=== PATIENT | male | born 1960 | race Caucasian/White ===

== ENCOUNTER → 2018-02-18 | Outpatient (CLI) | payer MEDICARE, OTHER ==
[2018-02-18 11:19] VITALS: BP 152/76; PULSE 108; RESP 16; TEMP 98.1; BMI 56.3
--- NOTE | 2018-02-18 11:49 | P.HPBAR ---
Bariatric H&P - History & Physicial H&P Date: 02/18/18 History & Physicial: Visit/CC: initial visit Patient initial contact: Initial weight: 175.625 kg Initial weight in pounds: 387.19 Height: 5 ft 9.5 in Initial BMI: 56.3 Last weight: Current weight: 175.625 kg Current weight in pounds: 387.19 Current BMI: 56.3 [place] body weight (based on NIH guidelines): 73.936 kg Excess body weight loss: 0.0% The patient is a 57 year-old M who presents for Bariatric Assessment. HPI: He reports trouble with depression. He is looking into bariatric surgery. His older sister and brother who had the gastric bypass. He is looking to get the most weight loss ever. He has been overweight for the past 12 years. He was 210 to 220 pounds in the past. 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 He reports having a large appetite. He has CHF and had pneumonia. He had a lung doctor and has a BiPAP. He has severe GERD and is life long. He had 2 perforated stomach ulcers. Last GERD and colonoscopy. Last scope in July 2018. Has low back pain with herniations, hip pain right very sore , some knees, ankles are ok. Feets are ok. No stomach or esophageal cancer. Highest weight is at present. He has afib. He sees a stratigrapher. ABDOMEN: Umbilical hernia 3 cm reducible MS: 1+ edema PLAN: 1. Need EGD for lesion 2. Need EKG 3. Needs labs 4. Needs nutrition Past Medical History Past Medical History: Atrial Fibrillation, COPD, Diabetes Mellitus, GERD/Reflux , Hyperlipidemia, Hypertension, Osteoarthritis (OA), Sleep Apnea/CPAP/BIPAP History of Any Multi-Drug Resistant Organisms: None Reported Past Surgical History: Pacemaker, Tonsillectomy Past Anesthesia/Blood Transfusion Reactions: No Reported Reaction Type of Cardiac Device: Permanent Pacemaker Device Placement Date:: unknown Past Psychological History: No Psychological Hx Reported Smoking Status: Former smoker Past Alcohol Use History: None Reported Additional Past Alcohol Use History / Comment(s): quit 20 year ago Past Drug Use History: None Reported Surgical - Exam Vital Signs Temp Pulse Resp BP 98.1 F 108 H 16 152/76 02/18/18 11:16 02/18/18 11:16 02/18/18 11:16 02/18/18 11:16 Bariatric Checklist Checklist: Plan: Checklist: EGD: 1. Hiatal hernia: 2. H. Pylori: HgbA1c: Vitamin D: Smoking: Former smoker Primary care physician referral: Lilia Sanchez Psychiatry clearance: Cardiology clearance: Sleep study: Diet journal: VTE risk score: VTE risk level: Rehab needs at discharge:
[2018-02-18 13:18] LABS: Anisocytosis Slight; HCT 37.6 % (39.0-53.0); HGB 11.6 gm/dL (13.0-17.5); Hypochromasia Marked; MCH 26.1 pg (25.0-35.0); MCHC 30.8 g/dL (31.0-37.0); MCV 84.5 fL (80.0-100.0); Mean Platelet Volume 7.5; Platelet Count 185 k/uL (150-450); RBC 4.45 m/uL (4.30-5.90); RDW 16.5 % (11.5-15.5); WBC 10.2 k/uL (3.8-10.6)
[2018-02-18 18:32] LABS: Iron Saturation 9.26 (15.00-50.00)
[2018-02-18 18:36] LABS: Albumin 4.7 g/dL (3.80-4.90); Albumin/Globulin Ratio 2.47 (1.20-2.10); Anion Gap 10.1 mmol/L (4.00-12.00); Calcium 9.8 mg/dL (8.7-10.3); Carbon Dioxide 26.9 mmol/L (21.6-31.8); Globulin 1.9 g/dL (1.6-3.3); LDL Cholesterol,Calculated 64.4 mg/dL (0.0-131.0); Potassium 4.6 mmol/L (3.5-5.5); Total Bilirubin 0.8 mg/dL (0.3-1.2); Total Protein 6.6 g/dL (6.2-8.2); VLDL Calculation 61.6 mg/dL (5.00-40.00)
[2018-02-18 18:41] LABS: Folate, Serum 9.5 ng/mL
[2018-02-18 18:50] LABS: Vitamin D 25 Hydroxy 9.2 ng/mL (30.0-100.0)
[2018-02-18 20:59] LABS: Hemoglobin A1C 8.6 % (4.0-6.0)
== END ==
LOC: BARWHC3 10:02
PROVIDERS: ATTEND Surgery Plastic and Reconstructive Surgery
DX: Z48.815 Encounter for surgical aftercare following surgery on the digestive system (principal); E66.01 Morbid (severe) obesity due to excess calories; E88.81 Metabolic syndrome and other insulin resistance; E44.0 Moderate protein-calorie malnutrition; E55.9 Vitamin D deficiency, unspecified; I11.9 Hypertensive heart disease without heart failure; G47.30 Sleep apnea, unspecified; Z68.43 Body mass index [BMI] 50.0-59.9, adult; Z98.84 Bariatric surgery status; Z87.891 Personal history of nicotine dependence
CPT/HCPCS: 84425; 80061; 80053; 82607; 82728; 82746; 83540; 83550; 84443; 85027; 82306; 83036; 36415; G0463; 99201

== ENCOUNTER 2018-03-29 10:46 | Day surgery (SDC) | payer MEDICARE ==
[2018-03-25 09:44] VITALS: BMI 56.5
--- NOTE | 2018-03-29 08:53 | P.GSHP ---
History of Present Illness H&P Date: 03/29/18 CHIEF COMPLAINT: GERD HISTORY OF PRESENT ILLNESS: The patient is a 57-year-old male who presents reports gastroesophageal reflux disease. Upper endoscopy was offered for further evaluation and management. PAST MEDICAL HISTORY: Please see list. PAST SURGICAL HISTORY: Please see list. MEDICATIONS: Please see list. ALLERGIES: Please see list. SOCIAL HISTORY: No illicit drug use FAMILY HISTORY: No reports of Crohn disease or ulcerative colitis. REVIEW OF ORGAN SYSTEMS: CONSTITUTIONAL: No reports of fevers or chills. GI: Denies any blood in stools or constipation. PHYSICAL EXAM: VITAL SIGNS: Stable GENERAL: Well-developed and pleasant in no acute distress. HEENT: No scleral icterus. Extraocular movements grossly intact. Moist buccal mucosa. NECK: Supple without lymphadenopathy. CHEST: Unlabored respirations. Equal bilateral excursions. CARDIOVASCULAR: Regular rate and rhythm. Distal 2+ pulses. ABDOMEN: Soft, nondistended. MUSCULOSKELETAL: No clubbing, cyanosis, or edema. ASSESSMENT: 1. Gastroesophageal reflux disease PLAN: 1. Recommend proceeding with an upper endoscopy Past Medical History Past Medical History: Atrial Fibrillation, Heart Failure, Diabetes Mellitus, Hyperlipidemia, Hypertension, Sleep Apnea/CPAP/BIPAP Additional Past Medical History / Comment(s): HX OF ANEMIA, COLON POLYPS, HX HEMMOROIDS, CHronic low back pain and ruptured discs (L4-L5), chronic KHUSHBU hip pain History of Any Multi-Drug Resistant Organisms: None Reported Past Surgical History: Pacemaker Past Anesthesia/Blood Transfusion Reactions: No Reported Reaction Additional Past Anesthesia/Blood Transfusion Reaction / Comment(s): NO blood transfusion to date Type of Cardiac Device: Permanent Pacemaker Device Placement Date:: Hum[place]ade 2014 Smoking Status: Former smoker - Past Family History Father Family Medical History: Cancer, Dementia, Myocardial Infarction ([place]), Neurologic Disorder Additional Family Medical History / Comment(s): SKIN CA, quadruple bypass x2 , at age 89 from Parkinsons/Alzheimers Mother Family Medical History: Cancer Additional Family Medical History / Comment(s): Breast cancer and mastectomy of Left breast at age 63, Medications and Allergies Home Medications Medication Instructions Recorded Confirmed Type Albuterol Inhaler [Ventolin Hfa 1 puff INHALATION DIRECTED 02/05/18 03/25/18 History Inhaler] Aspirin 81 mg PO DAILY 02/05/18 03/25/18 History Ferrous Gluconate [Iron] 325 mg PO TID 02/05/18 03/25/18 History Lisinopril 30 mg PO QAM 02/05/18 03/25/18 History Omeprazole 20 mg PO DAILY 02/05/18 03/25/18 History Potassium Chloride [K-Tab ER] 10 meq PO DAILY 02/05/18 03/25/18 History Simvastatin [Zocor] 40 mg PO DAILY 02/05/18 03/25/18 History Warfarin [Coumadin] 10 mg PO HS 02/05/18 03/25/18 History metFORMIN HCL [Glucophage] 500 mg PO BID 02/05/18 03/25/18 History Cholecalciferol [Vitamin D3] 5,000 unit PO DAILY 03/25/18 03/25/18 History HYDROcodone/APAP 10-325MG [Una 1 tab PO Q6HR PRN 03/25/18 03/25/18 History 10-325] glyBURIDE [Diabeta] 5 mg PO AC-BID 03/25/18 03/25/18 History Allergies Allergy/AdvReac Type Severity Reaction Status Date / Time atorvastatin [From Lipitor] AdvReac muscle pain Verified 03/25/18 09:36
[~2018-03-29 10:46] MED LIST: LACTATED RINGERS 1,000 ML IV SCH; LIDOCAINE 1% 20 ML VIAL (10MG/ML) FOR IV START INTRADERMA PRN; MIDAZOLAM (PF) 2 MG/2 ML VIAL IV PRN
[2018-03-29 11:06] VITALS: TEMP 97.2
[2018-03-29 11:25] LABS: Glucose,Whole Blood 241 mg/dL (75-99)
[2018-03-29] MEDS ORDERED: PROPOFOL 10 MG/ML 20 ML VIAL IV ONE (13:46)
[2018-03-29] MEDS ORDERED: LIDOCAINE 1% INJ 10MG/ML (20 ML MDV) ONE (13:46)
[2018-03-29] MEDS ORDERED: LACTATED RINGERS 1,000 ML IV ONE (14:03)
--- NOTE | 2018-03-29 14:06 | P.PCN ---
Date of Procedure: 03/29/18 Description of Procedure: PREOPERATIVE DIAGNOSIS: Gastroesophageal reflux disease. Morbid obesity. POSTOPERATIVE DIAGNOSIS: Morbid obesity. Gastritis. Gastroesophageal reflux disease. OPERATION: Esophagogastroduodenoscopy with biopsies along antrum. SURGEON: Carley Tyson MD ANESTHESIA: MAC. INDICATIONS: The patient is a 57-year-old female who presents with a history of reflux disease. Benefits and risks of the procedure were described. Informed consent was obtained. DESCRIPTION: The patient was brought into the endoscopy suite and laid in the left lateral decubitus position. An Olympus gastroscope was passed along the posterior oropharynx down to the distal esophagus where the squamocolumnar junction was encountered at 40 cm from the incisors. The stomach was entered and no bile reflux was found. Additional findings are listed below. Biopsies with cold forceps were obtained of the antrum. The first through third portion of the duodenum was examined and unremarkable. Retroflexion of the scope confirmed Hill grade 3 lower esophageal valve. The squamocolumnar junction demonstrated LA grade A erosive esophagitis. The stomach was desufflated. The patient tolerated the procedure well. FINDINGS: Squamocolumnar junction 40 cm from the incisors. Diaphragmatic hiatus at 40 cm. Hill grade 3 lower esophageal valve. LA grade A erosive esophagitis. No active duodenitis. Chronic gastritis RECOMMENDATIONS: Upper endoscopy as needed. Plan - Discharge Summary Discharge Rx Participant: No New Discharge Prescriptions: No Action Aspirin 81 mg PO DAILY Ferrous Gluconate [Iron] 325 mg PO TID Warfarin [Coumadin] 10 mg PO HS metFORMIN HCL [Glucophage] 500 mg PO BID Lisinopril 30 mg PO QAM Omeprazole 20 mg PO DAILY Potassium Chloride [K-Tab ER] 10 meq PO DAILY Simvastatin [Zocor] 40 mg PO DAILY Albuterol Inhaler [Ventolin Hfa Inhaler] 1 puff INHALATION DIRECTED HYDROcodone/APAP 10-325MG [Garrison 10-325] 1 tab PO Q6HR PRN PRN Reason: Pain glyBURIDE [Diabeta] 5 mg PO AC-BID Cholecalciferol [Vitamin D3] 5,000 unit PO DAILY Discharge Medication List Albuterol Inhaler [Ventolin Hfa Inhaler] 1 puff INHALATION DIRECTED 02/05/18 [History] Aspirin 81 mg PO DAILY 02/05/18 [History] Ferrous Gluconate [Iron] 325 mg PO TID 02/05/18 [History] Lisinopril 30 mg PO QAM 02/05/18 [History] Omeprazole 20 mg PO DAILY 02/05/18 [History] Potassium Chloride [K-Tab ER] 10 meq PO DAILY 02/05/18 [History] Simvastatin [Zocor] 40 mg PO DAILY 02/05/18 [History] Warfarin [Coumadin] 10 mg PO HS 02/05/18 [History] metFORMIN HCL [Glucophage] 500 mg PO BID 02/05/18 [History] Cholecalciferol [Vitamin D3] 5,000 unit PO DAILY 03/25/18 [History] HYDROcodone/APAP 10-325MG [Garrison 10-325] 1 tab PO Q6HR PRN 03/25/18 [History] glyBURIDE [Diabeta] 5 mg PO AC-BID 03/25/18 [History] Patient Instructions/Handouts: *[facility] - (Anesthesia) Endoscopy Discharge Instructions, Upper Endoscopy (DC)
[2018-03-29 14:09] VITALS: RESP 18
[2018-03-29 14:25] VITALS: BP 138/78; PULSE 77
== END 2018-03-29 14:41 | disposition home or self-care (01) ==
LOC: ORWHC2ENDO 10:46
PROVIDERS: ATTEND Surgery Plastic and Reconstructive Surgery
DX: K21.0 Gastro-esophageal reflux disease with esophagitis (principal); K29.50 Unspecified chronic gastritis without bleeding; E11.9 Type 2 diabetes mellitus without complications; I11.0 Hypertensive heart disease with heart failure; I50.9 Heart failure, unspecified; I48.91 Unspecified atrial fibrillation; G47.33 Obstructive sleep apnea (adult) (pediatric); J44.9 Chronic obstructive pulmonary disease, unspecified; Z99.89 Dependence on other enabling machines and devices; Z86.2 Personal history of diseases of the blood and blood-forming organs and certain disorders involving the immune mechanism; Z87.891 Personal history of nicotine dependence; Z95.0 Presence of cardiac pacemaker; E78.5 Hyperlipidemia, unspecified; G89.29 Other chronic pain; M54.5 Low back pain; Z80.3 Family history of malignant neoplasm of breast; E66.9 Obesity, unspecified; Z68.43 Body mass index [BMI] 50.0-59.9, adult; Z79.01 Long term (current) use of anticoagulants; Z79.84 Long term (current) use of oral hypoglycemic drugs; Z79.82 Long term (current) use of aspirin; Z79.899 Other long term (current) drug therapy; Z88.8 Allergy status to other drugs, medicaments and biological substances
CPT/HCPCS: 88305; 43239; J2001; J2704

== ENCOUNTER → 2018-04-28 | Outpatient (CLI) | payer MEDICARE, OTHER ==
--- NOTE | 2018-04-28 17:42 | P.PN ---
Subjective Progress Note Date: 04/28/18 DATE OF SERVICE: 04/28/2018 CHIEF COMPLAINT: Morbid obesity HISTORY OF PRESENT ILLNESS: Nima Bowman is a 57-year-old male who comes with lifelong morbid obesity. He has multiple medical co-morbidities including severe COPD. He has severe sleep apnea unresponsive to CPAP. He has a stress test and h as a blockage and requires additional cardiovascular care. No nausea or vomiting. No fevers or chills. No current chest pain. At height of 5 feet 9.5 inches, ideal body weight is 168 pounds. Highest weight is 389 pounds. Body mass index highest was 56.7. Today BMI is 56.3. His weight is unchanged in 2 months. He is 218 pounds overweight. PAST MEDICAL HISTORY: 1. Morbid obesity due to excess calories 2. Body mass index of 56.4, initial 3. Depressive disorder 4. Congestive heart failure 5. Past pneumonia 6. Obstructive sleep apnea 7. Gastroesophageal reflux disease 8. Stomach ulcers 9. Osteoarthritis bilateral knee 10. Osteoarthritis lower back 11. Osteoarthritis right hip pain 12. Atrial fibrillation 13. Hypertensive heart disease 14. Diabetes type 2, non-insulin dependent 15. Asthma 16. Iron deficiency anemia 17. Hyperlipidemia 18. Chronic obstructive pulmonary disease 19. Depressive disorder PAST SURGICAL HISTORY: 1. Pacemaker 2. EGD 3. Colonoscopy 4. Tonsillectomy HOME MEDICATIONS: ALLERGIES: Home Medications Medication Instructions Recorded Confirmed Type Albuterol Inhaler [Ventolin Hfa 1 puff INHALATION DIRECTED 02/05/18 02/22/18 History Inhaler] Aspirin 81 mg PO DAILY 02/05/18 02/22/18 History Cetirizine HCl [Zyrtec] 10 mg PO DAILY 02/05/18 02/22/18 History Ferrous Gluconate [Iron] 325 mg PO TID 02/05/18 02/22/18 History Lisinopril 30 mg PO DAILY 02/05/18 02/22/18 History Montelukast [Singulair] 10 mg PO DAILY 02/05/18 02/22/18 History Omeprazole 20 mg PO DAILY 02/05/18 02/22/18 History Potassium Chloride [K-Tab ER] 10 meq PO DAILY 02/05/18 02/22/18 History Simvastatin [Zocor] 40 mg PO DAILY 02/05/18 02/22/18 History Warfarin [Coumadin] 10 mg PO DAILY 02/05/18 02/22/18 History glipiZIDE [Glucotrol] 5 mg PO BID 02/05/18 02/22/18 History metFORMIN HCL [Glucophage] 500 mg PO BID 02/05/18 02/22/18 History Allergies Allergy/AdvReac Type Severity Reaction Status Date / Time atorvastatin [From Lipitor] AdvReac Unknown Verified 02/22/18 18:12 SOCIAL HISTORY: Past tobacco use. FAMILY HISTORY: No family history of ulcerative colitis disease or Crohn's disease. Family history of morbid obesity. No lupus in the family. No reports of stomach or esophageal cancer. REVIEW OF ORGAN SYSTEMS: CONSTITUTIONAL: At height of 5 feet 9.5 inches, ideal body weight is 168 pounds. He comes in 386 pounds. Highest weight is 389 pounds. Body mass index highest was 56.7. Today BMI is 56.5. He is 218 pounds overweight. HEENT: Denies any active troubles with vision or hearing. No troubles with swallowing. ENDOCRINE: Has diabetes. No hypothyroidism. CARDIOVASCULAR: Reports of palpitations or heart attacks or chest pain. RESPIRATORY: Has daytime somnolence. Has asthma. GI: Denies any bright red blood per rectum. No diarrhea. No constipation. MUSCULOSKELETAL: Has lower back pain and joint pain. Has osteoarthritis of the knees. NEURO: No headaches. No seizure disorders. PSYCH: Has depression. No suicidal ideation. RHEUMATOLOGIC: No lupus. No rheumatoid arthritis. HEMATOLOGIC: Denies any abnormal bleeding or bruising. No personal history of DVTs. On blood thinner. SKIN: No rash. No skin cancer. PHYSICAL EXAM: VITAL SIGNS: Height 5 foot 9.5 inches, weight 386 pounds. BMI 56.4 Vital Signs Temp 98.2 F 04/28/18 18:08 Pulse 103 H 04/28/18 18:08 Resp BP 153/80 04/28/18 18:08 Pulse Ox GENERAL: Well-developed in no acute distress. HEENT: No scleral icterus. Extraocular movements grossly intact. Hears conversational speech. No nasal drainage. NECK: Supple without lymphadenopathy. CHEST: Nonlabored respirations with equal bilateral excursions. PROLONGED RESPIRATORY Phase. CARDIOVASCULAR: Irregular rate and irregular rhythm. Distal 2+ pulses. ABDOMEN: Obese, soft, nontender, nondistended. Umbilical hernia 3 cm reducible MUSCULOSKELETAL: No clubbing, cyanosis. Gross strength 5/5 distal lower extremities. 1+ pre-tibial edema NEURO: No focal or lateralizing signs. Cranial nerves 2 through 12 grossly within normal limits. PSYCH: Appropriate affect. Alert and oriented to person, place and time. SKIN: Good skin turgor. Well perfused. EGD FINDINGS: Squamocolumnar junction 40 cm from the incisors. Diaphragmatic hiatus at 40 cm. Hill grade 3 lower esophageal valve. LA grade A erosive esophagitis. No active duodenitis. Chronic gastritis Final Pathologic Diagnosis GASTRIC ANTRUM, BIOPSY: Mild chronic gastritis. Helicobacter pylori organisms are not identified on routine H+E sections. LABS: Reviewed. Iron is low, Vitamin D is low. Triglycerides are high. ASSESSMENT: 1. Morbid obesity due to excess calories 2. Body mass index of 56.4, initial 3. Depressive disorder 4. Congestive heart failure 5. Past pneumonia 6. Obstructive sleep apnea 7. Gastroesophageal reflux disease 8. Stomach ulcers 9. Osteoarthritis bilateral knee 10. Osteoarthritis lower back 11. Osteoarthritis right hip pain 12. Atrial fibrillation 13. Hypertensive heart disease 14. Diabetes type 2, non-insulin dependent 15. Asthma 16. Iron deficiency anemia 17. Hyperlipidemia 18. Chronic obstructive pulmonary disease 19. Depressive disorder 20. Family history morbid obesity 21. History of pacemaker placement PLAN: 1. He is looking into the sleeve gastrectomy for which he is very high risk secondary to her multiple medical co-morbidities including severe COPD. 2. Iron infusion for symptomatic severe iron deficiency anemia 3. Vitamin D supplement for severe heart disease and severe vitamin deficiency.
[2018-04-28 18:13] VITALS: BP 153/80; PULSE 103; TEMP 98.2; BMI 56.3
== END | disposition home or self-care (01) ==
LOC: BARWHC3 15:01
PROVIDERS: ATTEND Surgery Plastic and Reconstructive Surgery
DX: E66.01 Morbid (severe) obesity due to excess calories (principal); I11.0 Hypertensive heart disease with heart failure; I50.9 Heart failure, unspecified; G47.33 Obstructive sleep apnea (adult) (pediatric); K21.9 Gastro-esophageal reflux disease without esophagitis; M17.0 Bilateral primary osteoarthritis of knee; M19.90 Unspecified osteoarthritis, unspecified site; I48.91 Unspecified atrial fibrillation; E11.9 Type 2 diabetes mellitus without complications; D50.9 Iron deficiency anemia, unspecified; E78.5 Hyperlipidemia, unspecified; J44.9 Chronic obstructive pulmonary disease, unspecified; F32.9 Major depressive disorder, single episode, unspecified; Z84.89 Family history of other specified conditions; Z95.0 Presence of cardiac pacemaker; M16.11 Unilateral primary osteoarthritis, right hip; Z68.43 Body mass index [BMI] 50.0-59.9, adult; K25.9 Gastric ulcer, unspecified as acute or chronic, without hemorrhage or perforation; Z87.891 Personal history of nicotine dependence; Z88.8 Allergy status to other drugs, medicaments and biological substances; Z79.899 Other long term (current) drug therapy; Z79.82 Long term (current) use of aspirin; Z79.01 Long term (current) use of anticoagulants; Z79.84 Long term (current) use of oral hypoglycemic drugs
CPT/HCPCS: 99211

== ENCOUNTER → 2018-07-12 | Outpatient (CLI) | payer MEDICARE, OTHER ==
[2018-07-12 09:55] VITALS: BMI 55.7
== END | disposition home or self-care (01) ==
LOC: BARWHC3 08:39
PROVIDERS: ATTEND Surgery Plastic and Reconstructive Surgery
DX: E66.01 Morbid (severe) obesity due to excess calories (principal); Z68.43 Body mass index [BMI] 50.0-59.9, adult
CPT/HCPCS: 97804

== ENCOUNTER → 2018-10-27 | Outpatient (CLI) | payer MEDICARE, OTHER ==
[2018-10-27 15:24] VITALS: BP 124/81; PULSE 68; TEMP 98.2; BMI 52.4
--- NOTE | 2018-10-27 15:42 | P.PN ---
Subjective Progress Note Date: 10/27/18 DATE OF SERVICE: 10/27/2018 CHIEF COMPLAINT: Morbid obesity HISTORY OF PRESENT ILLNESS: Nima Bowman is a 57-year-old male who comes with lifelong morbid obesity. He has multiple medical co-morbidities including severe COPD, sleep apnea, osteoarthritis, hypertensive heart disease with congestive he art failure. He has been undergoing strict low carb, high protein diet with moderate weight loss over 2 pounds. He is no longer short of breath. He no longer has pursed string breathing. He has more energy. His blood surgar has been adjusted. He is happy with his weight loss. At height of 5 feet 9.5 inches, ideal body weight is 168 pounds. Highest weight is 389 pounds. Body mass index highest was 56.7. Today BMI was 56.3. He comes in 360 pounds from 382 pounds, 6 months ago. He has lost 22 pounds in 6 months. Lifetime weight loss of 29 pounds. He is 192 pounds overweight. PAST MEDICAL HISTORY: 1. Morbid obesity due to excess calories 2. Body mass index of 56.4, initial 3. Depressive disorder 4. Congestive heart failure 5. Past pneumonia 6. Obstructive sleep apnea 7. Gastroesophageal reflux disease 8. Stomach ulcers 9. Osteoarthritis bilateral knee 10. Osteoarthritis lower back 11. Osteoarthritis right hip pain 12. Atrial fibrillation 13. Hypertensive heart disease 14. Diabetes type 2, non-insulin dependent 15. Asthma 16. Iron deficiency anemia 17. Hyperlipidemia 18. Chronic obstructive pulmonary disease 19. Depressive disorder PAST SURGICAL HISTORY: 1. Pacemaker 2. EGD 3. Colonoscopy 4. Tonsillectomy HOME MEDICATIONS: ALLERGIES: Home Medications Medication Instructions Recorded Confirmed Type Albuterol Inhaler [Ventolin Hfa 1 puff INHALATION DIRECTED 02/05/18 02/22/18 History Inhaler] Aspirin 81 mg PO DAILY 02/05/18 02/22/18 History Cetirizine HCl [Zyrtec] 10 mg PO DAILY 02/05/18 02/22/18 History Ferrous Gluconate [Iron] 325 mg PO TID 02/05/18 02/22/18 History Lisinopril 30 mg PO DAILY 02/05/18 02/22/18 History Montelukast [Singulair] 10 mg PO DAILY 02/05/18 02/22/18 History Omeprazole 20 mg PO DAILY 02/05/18 02/22/18 History Potassium Chloride [K-Tab ER] 10 meq PO DAILY 02/05/18 02/22/18 History Simvastatin [Zocor] 40 mg PO DAILY 02/05/18 02/22/18 History Warfarin [Coumadin] 10 mg PO DAILY 02/05/18 02/22/18 History glipiZIDE [Glucotrol] 5 mg PO BID 02/05/18 02/22/18 History metFORMIN HCL [Glucophage] 500 mg PO BID 02/05/18 02/22/18 History Allergies Allergy/AdvReac Type Severity Reaction Status Date / Time atorvastatin [From Lipitor] AdvReac Unknown Verified 02/22/18 18:12 SOCIAL HISTORY: Past tobacco use. FAMILY HISTORY: No family history of ulcerative colitis disease or Crohn's disease. Family history of morbid obesity. No lupus in the family. No reports of stomach or esophageal cancer. REVIEW OF ORGAN SYSTEMS: CONSTITUTIONAL: At height of 5 feet 9.5 inches, ideal body weight is 168 pounds. He comes in 386 pounds. Highest weight is 389 pounds. Body mass index highest was 56.7. Today BMI is 56.5. He is 218 pounds overweight. HEENT: Denies any active troubles with vision or hearing. No troubles with swallowing. ENDOCRINE: Has diabetes. No hypothyroidism. CARDIOVASCULAR: Reports of palpitations or heart attacks or chest pain. RESPIRATORY: Has daytime somnolence. Has asthma. GI: Denies any bright red blood per rectum. No diarrhea. No constipation. MUSCULOSKELETAL: Has lower back pain and joint pain. Has osteoarthritis of the knees. NEURO: No headaches. No seizure disorders. PSYCH: Has depression. No suicidal ideation. RHEUMATOLOGIC: No lupus. No rheumatoid arthritis. HEMATOLOGIC: Denies any abnormal bleeding or bruising. No personal history of DVTs. On blood thinner. SKIN: No rash. No skin cancer. PHYSICAL EXAM: VITAL SIGNS: Height 5 foot 9.5 inches, weight 360 pounds. BMI 52.4 Vital Signs Temp 98.2 F 10/27/18 15:16 Pulse 68 10/27/18 15:16 Resp BP 124/81 10/27/18 15:16 Pulse Ox GENERAL: Well-developed in no acute distress. HEENT: No scleral icterus. Extraocular movements grossly intact. Hears conversational speech. No nasal drainage. NECK: Supple without lymphadenopathy. CHEST: Nonlabored respirations with equal bilateral excursions. CARDIOVASCULAR: Irregular rate and irregular rhythm. Distal 2+ pulses. ABDOMEN: Obese, soft, nontender, nondistended. Umbilical hernia 3 cm reducible MUSCULOSKELETAL: No clubbing, cyanosis. Gross strength 5/5 distal lower extremities. No edema NEURO: No focal or lateralizing signs. Cranial nerves 2 through 12 grossly within normal limits. PSYCH: Appropriate affect. Alert and oriented to person, place and time. SKIN: Good skin turgor. Well perfused. ASSESSMENT: 1. Morbid obesity due to excess calories 2. Body mass index of 56.4 to 52.4 3. Depressive disorder 4. Congestive heart failure 5. Past pneumonia 6. Obstructive sleep apnea, severe 7. Gastroesophageal reflux disease 8. Stomach ulcers 9. Osteoarthritis bilateral knee 10. Osteoarthritis lower back 11. Osteoarthritis right hip pain 12. Atrial fibrillation 13. Hypertensive heart disease 14. Diabetes type 2, non-insulin dependent 15. Asthma 16. Iron deficiency anemia 17. Hyperlipidemia 18. Chronic obstructive pulmonary disease, moderate 19. Depressive disorder 20. Family history morbid obesity 21. History of pacemaker placement 22. Chronic anticoagulant use PLAN: 1. Bariatric options between a sleeve, band and a Patricia-en-Y gastric bypass were reviewed in detail. The patient elected for a gastric bypass. Robotic assisted approach described. 2. The [place] [facility] Data was also reviewed with benefits and risks as described. 3. An 8 page second-generation bariatric consent form was reviewed in detail including potential of bleeding, infection, leaks, adequate weight loss, nutritional deficiencies which the patient demonstrated understanding of the risks. 4. A 2 week high-protein low caloric 800 kcal diet described to address hepatomegaly. 5. Preoperative labs including complete metabolic panel and CBC with type and screen recommended. 6. DVT prophylaxis per [place] [facility]. 7. Antibiotic prophylaxis. 8. Inpatient hospitalization anticipated for more than 2 nights. 9. All questions and concerns were addressed with the patient. 10. He is moderate risks with any surgical procedure, the highest risk is with gastric bypass. He is looking into the gastric bypass. He does not want the sleeve. 11. He will need BiPAP after his procedure for moderate to severe COPD and sleep apnea 12. He will be off coumadin for 5 days with bridging described post-operative with Lovenox Objective - Vital Signs Vital signs: Vital Signs Temp 98.2 F 10/27/18 15:16 Pulse 68 10/27/18 15:16 Resp BP 124/81 10/27/18 15:16 Pulse Ox Intake & Output 10/26/18 10/27/18 10/27/18 18:59 06:59 18:59 Weight 163.429 kg - Labs CBC & Chem 7: 10/27/18 16:35 10/27/18 16:35
[2018-10-27 17:41] LABS: Anisocytosis Slight; Basophils # (A) 0.1 k/uL (0-0.2); Basophils % (A) 1 %; Eosinophils # (A) 0.3 k/uL (0-0.7); Eosinophils % (A) 3 %; HCT 42.2 % (39.0-53.0); HGB 13.6 gm/dL (13.0-17.5); Lymphocytes # (A) 1.7 k/uL (1.0-4.8); Lymphocytes % (A) 14 %; MCH 27.8 pg (25.0-35.0); MCHC 32.1 g/dL (31.0-37.0); MCV 86.4 fL (80.0-100.0); Mean Platelet Volume 7.7; Monocytes # (A) 0.4 k/uL (0-1.0); Monocytes % (A) 4 %; Neutrophils # (A) 9.8 k/uL (1.3-7.7); Neutrophils % (A) 79 %; Platelet Count 171 k/uL (150-450); RBC 4.89 m/uL (4.30-5.90); RDW 16.5 % (11.5-15.5); WBC 12.5 k/uL (3.8-10.6)
[2018-10-27 22:51] LABS: African American GFR (CKD) 77.9 (60.0-200.0); Albumin 4.9 g/dL (3.80-4.90); Albumin/Globulin Ratio 2.23 (1.60-3.17); Anion Gap 14.8 mmol/L (4.00-12.00); BUN/Creat Ratio 25.83 Ratio (12.00-20.00); Calcium 10.4 mg/dL (8.7-10.3); Carbon Dioxide 19.2 mmol/L (21.6-31.8); Globulin 2.2 g/dL (1.6-3.3); Potassium 4.5 mmol/L (3.5-5.5); Total Protein 7.1 g/dL (6.2-8.2)
[2018-10-27 23:31] LABS: Hemoglobin A1C 8.1 % (4.0-6.0)
== END | disposition home or self-care (01) ==
LOC: BARWHC3 13:59
PROVIDERS: ATTEND Surgery Plastic and Reconstructive Surgery
DX: E66.01 Morbid (severe) obesity due to excess calories (principal); F32.9 Major depressive disorder, single episode, unspecified; I11.0 Hypertensive heart disease with heart failure; G47.33 Obstructive sleep apnea (adult) (pediatric); K21.9 Gastro-esophageal reflux disease without esophagitis; K25.9 Gastric ulcer, unspecified as acute or chronic, without hemorrhage or perforation; M17.0 Bilateral primary osteoarthritis of knee; M47.816 Spondylosis without myelopathy or radiculopathy, lumbar region; M16.11 Unilateral primary osteoarthritis, right hip; I48.91 Unspecified atrial fibrillation; I50.9 Heart failure, unspecified; E11.9 Type 2 diabetes mellitus without complications; J44.9 Chronic obstructive pulmonary disease, unspecified; D50.9 Iron deficiency anemia, unspecified; E78.5 Hyperlipidemia, unspecified; Z68.43 Body mass index [BMI] 50.0-59.9, adult; Z87.01 Personal history of pneumonia (recurrent); Z87.891 Personal history of nicotine dependence; Z95.0 Presence of cardiac pacemaker; Z90.09 Acquired absence of other part of head and neck; Z79.01 Long term (current) use of anticoagulants; Z79.82 Long term (current) use of aspirin; Z79.84 Long term (current) use of oral hypoglycemic drugs; Z79.899 Other long term (current) drug therapy; Z88.8 Allergy status to other drugs, medicaments and biological substances
CPT/HCPCS: 80053; 85025; 83036; G0463; 99211

== ENCOUNTER 2018-11-08 11:15 | Inpatient (IN) | payer MEDICARE, OTHER ==
--- NOTE | 2018-11-07 20:52 | P.GSHP ---
History of Present Illness H&P Date: 11/08/18 DATE OF SERVICE: 11/08/2018 CHIEF COMPLAINT: Morbid obesity HISTORY OF PRESENT ILLNESS: Nima Bowman is a 57-year-old male who comes with lifelong morbid obesity. He has multiple medical co-morbidities including severe COPD, sleep apnea, osteoarthritis, hypertensive heart disease with congestive heart failure. He has been undergoing strict low carb, high protein diet with moderate weight loss over 2 pounds. He is no longer short of breath. He no longer has pursed string breathing. He has more energy. His blood surgar has been adjusted. He is happy with his weight loss. At height of 5 feet 9.5 inches, ideal body weight is 168 pounds. Highest weight is 389 pounds. Body mass index highest was 56.7. Today BMI was 52.4. He comes in 360 pounds unchanged from 2 weeks ago. Lifetime weight loss of 30 pounds. He is 192 pounds overweight. PAST MEDICAL HISTORY: 1. Morbid obesity due to excess calories 2. Body mass index of 56.4, initial 3. Depressive disorder 4. Congestive heart failure 5. Past pneumonia 6. Obstructive sleep apnea 7. Gastroesophageal reflux disease 8. Stomach ulcers 9. Osteoarthritis bilateral knee 10. Osteoarthritis lower back 11. Osteoarthritis right hip pain 12. Atrial fibrillation 13. Hypertensive heart disease 14. Diabetes type 2, non-insulin dependent 15. Asthma 16. Iron deficiency anemia 17. Hyperlipidemia 18. Chronic obstructive pulmonary disease 19. Depressive disorder PAST SURGICAL HISTORY: 1. Pacemaker 2. EGD 3. Colonoscopy 4. Tonsillectomy HOME MEDICATIONS: ALLERGIES: Home Medications Medication Instructions Recorded Confirmed Type Albuterol Inhaler [Ventolin Hfa 1 puff INHALATION DIRECTED 02/05/18 02/22/18 History Inhaler] Aspirin 81 mg PO DAILY 02/05/18 02/22/18 History Cetirizine HCl [Zyrtec] 10 mg PO DAILY 02/05/18 02/22/18 History Ferrous Gluconate [Iron] 325 mg PO TID 02/05/18 02/22/18 History Lisinopril 30 mg PO DAILY 02/05/18 02/22/18 History Montelukast [Singulair] 10 mg PO DAILY 02/05/18 02/22/18 History Omeprazole 20 mg PO DAILY 02/05/18 02/22/18 History Potassium Chloride [K-Tab ER] 10 meq PO DAILY 02/05/18 02/22/18 History Simvastatin [Zocor] 40 mg PO DAILY 02/05/18 02/22/18 History Warfarin [Coumadin] 10 mg PO DAILY 02/05/18 02/22/18 History glipiZIDE [Glucotrol] 5 mg PO BID 02/05/18 02/22/18 History metFORMIN HCL [Glucophage] 500 mg PO BID 02/05/18 02/22/18 History Allergies Allergy/AdvReac Type Severity Reaction Status Date / Time atorvastatin [From Lipitor] AdvReac Unknown Verified 02/22/18 18:12 SOCIAL HISTORY: Past tobacco use. FAMILY HISTORY: No family history of ulcerative colitis disease or Crohn's disease. Family history of morbid obesity. No lupus in the family. No reports of stomach or esophageal cancer. REVIEW OF ORGAN SYSTEMS: CONSTITUTIONAL: At height of 5 feet 9.5 inches, ideal body weight is 168 pounds. Highest weight is 389 pounds. Body mass index highest was 56.7. HEENT: Denies any active troubles with vision or hearing. No troubles with swallowing. ENDOCRINE: Has diabetes. No hypothyroidism. CARDIOVASCULAR: Reports of palpitations or heart attacks or chest pain. RESPIRATORY: Has daytime somnolence. Has asthma. GI: Denies any bright red blood per rectum. No diarrhea. No constipation. MUSCULOSKELETAL: Has lower back pain and joint pain. Has osteoarthritis of the knees. NEURO: No headaches. No seizure disorders. PSYCH: Has depression. No suicidal ideation. RHEUMATOLOGIC: No lupus. No rheumatoid arthritis. HEMATOLOGIC: Denies any abnormal bleeding or bruising. No personal history of DVTs. On blood thinner. SKIN: No rash. No skin cancer. PHYSICAL EXAM: VITAL SIGNS: Height 5 foot 9.5 inches, weight 360 pounds. BMI 52.4 GENERAL: Well-developed in no acute distress. HEENT: No scleral icterus. Extraocular movements grossly intact. Hears conversational speech. No nasal drainage. NECK: Supple without lymphadenopathy. CHEST: Nonlabored respirations with equal bilateral excursions. CARDIOVASCULAR: Irregular rate and irregular rhythm. Distal 2+ pulses. ABDOMEN: Obese, soft, nontender, nondistended. Umbilical hernia 3 cm reducible MUSCULOSKELETAL: No clubbing, cyanosis. Gross strength 5/5 distal lower extremities. No edema NEURO: No focal or lateralizing signs. Cranial nerves 2 through 12 grossly within normal limits. PSYCH: Appropriate affect. Alert and oriented to person, place and time. SKIN: Good skin turgor. Well perfused. ASSESSMENT: 1. Morbid obesity due to excess calories 2. Body mass index of 56.4 to 52.4 3. Depressive disorder 4. Congestive heart failure 5. Past pneumonia 6. Obstructive sleep apnea, severe 7. Gastroesophageal reflux disease 8. Stomach ulcers 9. Osteoarthritis bilateral knee 10. Osteoarthritis lower back 11. Osteoarthritis right hip pain 12. Atrial fibrillation 13. Hypertensive heart disease 14. Diabetes type 2, non-insulin dependent 15. Asthma 16. Iron deficiency anemia 17. Hyperlipidemia 18. Chronic obstructive pulmonary disease, moderate 19. Depressive disorder 20. Family history morbid obesity 21. History of pacemaker placement 22. Chronic anticoagulant use PLAN: 1. Bariatric options between a sleeve, band and a Patricia-en-Y gastric bypass were reviewed in detail. The patient elected for a gastric bypass. Robotic assisted approach described. 2. The [place] [facility] Data was also reviewed with benefits and risks as described. 3. An 8 page second-generation bariatric consent form was reviewed in detail including potential of bleeding, infection, leaks, adequate weight loss, nutritional deficiencies which the patient demonstrated understanding of the risks. 4. A 2 week high-protein low caloric 800 kcal diet described to address hepatomegaly. 5. Preoperative labs including complete metabolic panel and CBC with type and screen recommended. 6. DVT prophylaxis per [place] [facility]. 7. Antibiotic prophylaxis. 8. Inpatient hospitalization anticipated for more than 2 nights. 9. All questions and concerns were addressed with the patient. 10. He is moderate risks with any surgical procedure, the highest risk is with gastric bypass. He is looking into the gastric bypass. He does not want the sleeve. 11. He will need BiPAP after his procedure for moderate to severe COPD and sleep apnea 12. He will be off coumadin for 5 days with bridging described post-operative with Lovenox Past Medical History Past Medical History: Atrial Fibrillation, Heart Failure, COPD, Diabetes Mellitus, GERD/Reflux, Hyperlipidemia, Hypertension, Osteoarthritis (OA), Sleep Apnea/CPAP/BIPAP Additional Past Medical History / Comment(s): IRON DEFICIENCY ANEMIA, COLON POLYPS, HEMMOROIDS, KIDNEY STONES., RUPTURED DISCS WITH BACK AND HIP PAIN., PACEMAKER, SLEEP APNEA WITH BI-PAP MACHINE AND OXYGEN AT 4 LITERS AT NIGHT., HX OF STOMACH ULCER., STATES CURRENTLY ON PROTEIN SHAKE DIET PER DRS INSTRUCTIONS. History of Any Multi-Drug Resistant Organisms: None Reported Past Surgical History: Pacemaker Additional Past Surgical History / Comment(s): LITHOTRIPSY Past Anesthesia/Blood Transfusion Reactions: No Reported Reaction Additional Past Anesthesia/Blood Transfusion Reaction / Comment(s): NO blood transfusion to date Type of Cardiac Device: Permanent Pacemaker Device Placement Date:: Squrl 2014 Past Psychological History: Depression Additional Psychological History / Comment(s): . Smoking Status: Former smoker Past Alcohol Use History: None Reported Additional Past Alcohol Use History / Comment(s): Quit in cigarettes in 1994, smoked 1-2ppd from teens. CURRENTLY VAPES. Past Drug Use History: Marijuana Additional Drug Use History / Comment(s): VAPES MARIJUANA - Past Family History Father Family Medical History: Cancer, Dementia, Myocardial Infarction ([place]), Neurologic Disorder Additional Family Medical History / Comment(s): SKIN CA, quadruple bypass x2 , at age 89 from Parkinsons/Alzheimers Mother Family Medical History: Cancer Additional Family Medical History / Comment(s): Breast cancer and mastectomy of Left breast at age 63, Medications and Allergies Home Medications Medication Instructions Recorded Confirmed Type Aspirin 81 mg PO DAILY 02/05/18 11/05/18 History Omeprazole 20 mg PO DAILY PRN 02/05/18 11/05/18 History Potassium Chloride [K-Tab ER] 10 meq PO DAILY 02/05/18 11/05/18 History Simvastatin [Zocor] 40 mg PO HS 02/05/18 11/05/18 History Cholecalciferol [Vitamin D3] 5,000 unit PO DAILY 03/25/18 11/05/18 History HYDROcodone/APAP 10-325MG [[place] 1 tab PO Q6HR PRN 03/25/18 11/05/18 History 10-325] glyBURIDE [Diabeta] 5 mg PO AC-BID 03/25/18 11/05/18 History Ergocalciferol [Vitamin D2 50,000 unit PO Q7D #12 cap 04/28/18 11/05/18 Rx (DRISDOL)] Cetirizine HCl 10 mg PO DAILY 07/12/18 11/05/18 History Montelukast [Singulair] 10 mg PO HS 07/12/18 11/05/18 History Sotalol [Betapace] 120 mg PO BID 07/12/18 11/05/18 History Semaglutide [Ozempic] 1 mg SQ WEEKLY 10/27/18 11/05/18 History Empagliflozin [Jardiance] 25 mg PO DAILY 11/05/18 11/05/18 History Ferrous Sulfate [Iron] 325 mg PO BID 11/05/18 11/05/18 History Lisinopril [Zestril] 10 mg PO HS 11/05/18 11/05/18 History Lisinopril [Zestril] 20 mg PO QAM 11/05/18 11/05/18 History Allergies Allergy/AdvReac Type Severity Reaction Status Date / Time atorvastatin [From Lipitor] AdvReac muscle pain Verified 11/05/18 08:09
[~2018-11-08 11:15] MED LIST changes: +ACETAMINOPHEN IV (For NPO) 1,000 MG in EMPTY BAG 1 BAG IVPB ONE; +CHLORHEXIDINE GLUCONATE 15 ML CUP MUCOUS MEM ONE; +ENOXAPARIN 40 MG/0.4 ML SYRINGE SQ STA; -LACTATED RINGERS 1,000 ML IV SCH; -LIDOCAINE 1% 20 ML VIAL (10MG/ML) FOR IV START INTRADERMA PRN; -MIDAZOLAM (PF) 2 MG/2 ML VIAL IV PRN; +PANTOPRAZOLE 40 MG/10 ML VIAL IV STA; +ceFAZolin 3 GM in SODIUM CHLORIDE 0.9% 100 ML IVPB ONE
[2018-11-08] MEDS ORDERED: LIDOCAINE 1% 20 ML VIAL (10MG/ML) FOR IV START INTRADERMA ONE (11:40)
[2018-11-08] MEDS ORDERED: LACTATED RINGERS 1,000 ML IV ONE ×4 (11:41→18:25)
[2018-11-08 11:48] LABS: Glucose,Whole Blood 121 mg/dL (75-99)
[2018-11-08] MEDS ORDERED: ONDANSETRON 4 MG/2 ML VIAL IVP ONE (11:59)
[2018-11-08] MEDS ORDERED: DEXAMETHASONE SOD PHOS (MDV) 100 MG/10 ML VIAL IVP ONE (12:00)
--- NOTE | 2018-11-08 12:32 | P.HPADDEND ---
H&P Addendum H&P Addendum Date: 11/08/18 Benefits and risks of gastric bypass were described in detail. All questions were addressed. Patient wished to proceed with gastric bypass.
[2018-11-08] MEDS ORDERED: NEOSTIGMINE 1 MG/ML 10 ML VIAL ONE (12:58)
[2018-11-08] MEDS ORDERED: PROPOFOL 10 MG/ML 20 ML VIAL IV ONE (12:58)
[2018-11-08] MEDS ORDERED: GLYCOPYRROLATE 0.2 MG/ML 2 ML VIAL ONE (12:58)
[2018-11-08] MEDS ORDERED: SUCCINYLCHOLINE CHLORIDE VIAL 200 MG/10 ML VIAL IV ONE (12:58)
[2018-11-08] MEDS ORDERED: fentaNYL (PF) 50 MCG/ML 2 ML AMP ONE (12:58)
[2018-11-08] MEDS ORDERED: LIDOCAINE 1% INJ 10MG/ML (20 ML MDV) ONE (12:58)
[2018-11-08] MEDS ORDERED: MIDAZOLAM 2 MG/2 ML VIAL ONE (12:58)
[2018-11-08] MEDS ORDERED: ROCURONIUM BROMIDE 10 MG/ML 10 ML VIAL IV ONE (12:58)
[2018-11-08] MEDS ORDERED: LIDOCAINE 1%-EPI 1:100,000 20 ML VIAL SQ ONE (13:33)
[2018-11-08 14:13] LABS: INR 1.1 (<1.2); Partial Thromboplastin Time 31.9 sec (22.0-30.0); Prothrombin Time 11.4 sec (9.0-12.0)
[2018-11-08] MEDS ORDERED: LABETALOL 5 MG/ML VIAL MDV IVP ONE (17:32)
[2018-11-08] MEDS ORDERED: FUROSEMIDE 10 MG/ML 4 ML VIAL IV ONE (17:38)
--- NOTE | 2018-11-08 17:38 | P.OP ---
Date of Procedure: 11/08/18 Description of Procedure: SURGEON: OMEGA FERMIN MD PREOPERATIVE DIAGNOSES: 1. Morbid obesity due to excess calories 2. Body mass index of 56.4 to 52.4 3. Depressive disorder 4. Congestive heart failure 5. Past pneumonia 6. Obstructive sleep apnea, severe 7. Gastroesophageal reflux disease 8. Stomach ulcers 9. Osteoarthritis bilateral knee 10. Osteoarthritis lower back 11. Osteoarthritis right hip pain 12. Atrial fibrillation 13. Hypertensive heart disease 14. Diabetes type 2, non-insulin dependent 15. Asthma 16. Iron deficiency anemia 17. Hyperlipidemia 18. Chronic obstructive pulmonary disease, moderate 19. Depressive disorder 20. Family history morbid obesity 21. History of pacemaker placement 22. Chronic anticoagulant use POSTOPERATIVE DIAGNOSES: 1. Morbid obesity due to excess calories 2. Body mass index of 56.4 to 52.4 3. Depressive disorder 4. Congestive heart failure 5. Past pneumonia 6. Obstructive sleep apnea, severe 7. Gastroesophageal reflux disease 8. Stomach ulcers 9. Osteoarthritis bilateral knee 10. Osteoarthritis lower back 11. Osteoarthritis right hip pain 12. Atrial fibrillation 13. Hypertensive heart disease 14. Diabetes type 2, non-insulin dependent 15. Asthma 16. Iron deficiency anemia 17. Hyperlipidemia 18. Chronic obstructive pulmonary disease, moderate 19. Depressive disorder 20. Family history morbid obesity 21. History of pacemaker placement 22. Chronic anticoagulant use 23. Hepatomegaly due to fatty liver disease 24. Incarcerated initial umbilical hernia with omentum OPERATION: 1. Robotic assisted da Jef Xi laparoscopic transgastric Gary-en-Y gastric bypass, 100 cm antecolic antegastric Gary limb, with 25 mm Ethicon ILS 2. Intraoperative esophagogastrojejunoscopy. ANESTHESIA: GETA and local ESTIMATED BLOOD LOSS: 10 mL SPECIMENS REMOVED: None. COMPLICATIONS: NONE. INDICATIONS: Nima Bowman is a 57-year-old male who comes with lifelong morbid obesity. He has multiple medical co-morbidities including severe COPD, sleep apnea, osteoarthritis, atrial fibrillation, hypertensive heart disease with congestive heart failure. At height of 5 feet 9.5 inches, ideal body weight is 168 pounds. Highest weight is 389 pounds. Body mass index highest was 56.7. Today BMI was 52.4. He comes in 360 pounds unchanged. Lifetime weight loss of 30 pounds. He is 192 pounds overweight. A second-generation bariatric consent form was described in detail including the possibility of protein malnutrition, leaks, gastrojejunal stricture, venous thrombosis, need for further surgery for which he demonstrated understanding. Benefits and risks of the procedure were described at length. Informed consent was obtained. DESCRIPTION: The patient was brought into the operating room theater. He was placed supine. He had received Lovenox subcutaneously for DVT prophylaxis. Additionally he Peridex oral solution as an oral decontaminant was placed per anesthesia. After general induction, the abdomen was prepped and draped in standard sterile fashion. Ioban draping was placed along the abdomen. A robotic da Jef Xi system was prepped and primed. The xiphoid to umbilicus was over 30 cm. Incisions were proposed at 15 cm from the xiphoid. Proposed port sites were marked with indelible marker along the anterior axillary line bilaterally, mid clavicular line bilaterally with each port marked 10 cm from each other. The robotic stapler port was marked for the right midclavicular line including along the left midclavicular line. A 5 mm 0 degrees laparoscopic trocar entry was performed along the left upper quadrant. The abdomen was insufflated to 15 mmHg pressure, which was tolerated well. Diagnostic laparoscopy demonstrated no injury to bowel, viscera, or mesentery. The liver was large consistent with hepatomegaly and fatty liver disease. An 8 mm camera port was placed left lateral to the umbilicus at the epigastrium, 15 cm distal to the xiphoid. Next, 12-mm robot stapler port was placed along the right mid abdomen. An 12 mm port was exchanged along the left upper quadrant. An 8 mm port was placed on the left lateral abdominal wall under direct visualization Please note that the ports were placed 18 to 20 cm away from the target anatomy of the stomach. Care was taken to check that each robotic arm was safely away from collision with the bed or the patient. At the epigastrium, a medium sized Osvaldo liver retractor was placed under direct visualization with the Iron Analytic Programmer placed under the right shoulder of the patient. Additionally, 25 mm Ethicon ILS anvil was entered into the left upper quadrant incision after placing a green extension tip with uncut 3-0 silk at the Green tip and secured outside the skin using hemostat. The patient was repositioned in reverse Trendelenburg position at 20-degrees after lowering the bed. A 30 camera was used for the entire case. The robot was docked over the patient. Using grasper for arm 3, a grasper for arm 1, including vessel sealer for arm 4, the robotic system was docked and primed as described. Instruments were interchanged by the buyer assistant including endoscissors, the needle forklift driver, and stapler. I had sat at the console. Attention was brought to creation of the gastric pouch using transgastric approach. At the distal stomach a longitudinal 3-cm incision was made for entry of the 25 mm anvil and its green attachment piece. The anvil was navigated at the gastric cardia between the second and third veins. The Green extended tip was brought out through the anterior surface of the stomach after using Bovie cautery. The anvil tip was brought out through the stomach and secured by its suture. Next, the gastric pouch was fashioned after dissection was made along the retrogastric space to allow first firing of the robotic staple. Green loads of 60 mm staplers were used to divide the stomach to create the gastric pouch towards the angle of Hiss. To create the gastric pouch, 9 mary ellen were used including 9 - 60 mm green staple loads. Next, the transverse mesocolon was extremely thick and anchored to the abdominal wall via the incarcerated umbilical hernia. As a result, a window was created along the greater omentum inferior to the transverse colon to identify the ligament of Treitz. The ligament of Treitz was identified and measured 60 cm antegrade and marked using 3-0 Silk. The jejunum was divided at the 60 cm point using 60-mm blue loads above the suture measurement. The biliopancreatic limb was held in place. The Gary limb was measured 100 cm in an antegrade fashion to avoid tension along the proposed gastrojejunal anastomosis. At 100 cm along the anti-mesenteric border of the Gary limb, a jejunojejunostomy was proposed whereby enterotomies were created along the biliopancreatic limb including the Gary limb using a Bovie cautery. A stay suture of 3-0 Slik was placed to align and create the anastomosis. The enterotomies along the anti-mesenteric borders were created followed by unidirectional fire from the patient's right side using 60 mm blue load Gingerd technology robotic stapler. The jejunojejunostomy was found to be hemostatic. The enterotomy was closed after horizontal mattress stitch of 3-0 silk used to elevate the enterotomy followed by closure with the robotic stapler blue load. The jejunal limb was temporarily tacked along the left upper quadrant. Attention was now brought to the creation of the gastrojejunostomy. No torsion was found upon the Gary limb. No tension was identified as the limb was brought along the upper abdomen. The blind jejunal limb was previously opened using hook cautery. The 25-mm ILS stapler was brought through the left anterior lateral port site from the left side. The ILS stapler was brought through the open jejunal limb and its needle was deployed at the antimesenteric border where the anvil were mated for approximately 1 minute upon firing. The stapler was removed after irrigating the shaft of the instrument with warm normal saline. Donuts were found to be intact and on both sides. The wireWAX Xi robot arms were then re-docked. I sat at the console. The open jejunal limb defect was closed using 45 mm blue loads after releasing any tension from the blind jejunal limb. Care was taken to avoid any long blind limb to avoid candycane syndrome. Reinforcement sutures were placed along the gastrojejunal anastomosis and placed along the 9:00 and 3 o'clock position using 3-0 Polysorb. The Lee and jejunojejunostomy mesenteric defects were obliterated by the intra-abdominal fat. I then went to the head of the bed to perform the esophagogastrojejunoscopy and a leak test. An Olympus gastroscope was passed along the posterior oropharynx which was unremarkable for any injury to the vocal cords. The scope was passed down to the proximal portion of the pouch, whereby no active bleeding was encountered. Excellent visualization of the gastrojejunostomy anastomosis, including the Gary limb was encountered with endoscopic image obtained. The anastomosis was found to be patent. The gastrointestinal tract was desufflated. No evidence of intraoperative leak was encountered as the gastric pouch and anastomosis were submerged under normal saline solution. The robot was then undocked. I then went back to the bedside of the patient, whereby with coordinated effort of the buyer assistant, irrigation was aspirated from the upper abdominal cavity. Tisseel was placed circumferentially over the anastomosis of the gastrojejunostomy. The fascial defect of the EEA stapler was closed using Uri Winslow and 0 Vicryl. All instruments and pneumoperitoneum were evacuated from the abdominal cavity. The port correlating with the EEA stapler device was cleansed with normal saline solution and hydrogen peroxide. The rest of incisions were reapproximated using 4-0 Monocryl in an interrupted subcuticular fashion. Local anesthetic was infiltrated along the skin for postop analgesia. Liquid glue was applied to the skin. OptiFoam dressing was placed along the ILS stapler site. At the end of the procedure, needle, sponge and instrument count had been verified correct by the solar installer technician. He had tolerated the procedure well and was extubated and taken to the postanesthesia unit in stable condition. Intraoperative findings were described to the patient's family who were very pleased with the level of care. Total console time 142 minutes Operative Findings: 1. Biliopancreatic limb 60 cm 2. Bypass performed using 100 cm gary limb secondary to avoid increased tension at 150 cm. 3. Gerber defect and jejunojejunostomy defect obliterated by moderate intra- abdominal fat. 4. Leak test negative with gastrojejunal anastomosis patent and hemostatic. 5. Robotic staplers total of 16: 9- Green 60 mm loads, 4 - blue 60 mm loads, 3 - blue 45 mm load 6. Reinforcement sutures were placed along the gastrojejunal anastomosis 7. Fatty liver disease with hepatomegaly 8. Initial incarcerated umbilical hernia containing greater omentum undisturbed 9. Window along greater omentum for creation of jejunojejunostomy secondary to extremely thick omentum and intra-abdominal tissue
[2018-11-08] MEDS ORDERED: diphenhydrAMINE 50 MG/ML 1 ML VIAL IVP PRN (17:41)
[2018-11-08] MEDS ORDERED: NALOXONE 0.4 MG/ML 1 ML VIAL IV PRN (17:41)
[2018-11-08] MEDS ORDERED: HYOSCYAMINE ORAL DROPS 1.875 MG/15 ML BOTTLE PO PRN (17:41)
[2018-11-08] MEDS ORDERED: ONDANSETRON 4 MG/2 ML VIAL IVP PRN (17:45)
[2018-11-08] MEDS ORDERED: DEXAMETHASONE SOD PHOSPHATE 4 MG/ML 1 ML VIAL IV SCH (18:00)
[2018-11-08] MEDS ORDERED: INSULIN ASPART (NovoLOG) 100 UNIT/ML VIAL SQ SCH (18:00)
[2018-11-08] MEDS: ALBUTEROL NEBULIZED 2.5 MG/3 ML INHALATION SCH ×2 (18:06→19:42)
[2018-11-08] MEDS: PROPOFOL 1,000 MG in EMPTY BAG 1 BAG IV SCH ×5 (18:38→23:20)
--- NOTE | 2018-11-08 18:39 | XR ---
EXAMINATION TYPE: XR chest 1V portable DATE OF EXAM: 11/08/2018 COMPARISON: NONE HISTORY: Check tube placement TECHNIQUE: Single frontal view of the chest is obtained. FINDINGS: Endotracheal tube is 5 cm from the nan. Exam is limited by underexposure. There is no g ross heart failure. There are chest leads. IMPRESSION: Limited exam. Endotracheal tube in fairly good position.
[2018-11-08 19:00] LABS: Glucose,Whole Blood 251 mg/dL (75-99)
[2018-11-08 19:37] LABS: Glucose,Whole Blood 258 mg/dL (75-99)
--- NOTE | 2018-11-08 19:59 | P.PN ---
Progress Note - Text Progress Note Date: 11/08/18 Notified by PACU nurse that patient had increased difficulty with breathing upon extubation. He has history of severe COPD including difficulty from awaken from prior surgeries. Patient being transferred to ICU for vent management.
[2018-11-08] MEDS: 0.9% NACL WITH KCL 20 MEQ/L 1,000 ML IV SCH (20:35)
[2018-11-08 20:46] LABS: ABG HCO3 18 mmol/L (21-25); ABG PCO2 40 mmHg (35-45); ABG PH 7.26 (7.35-7.45); ABG PO2 160 mmHg (83-108); ABG TCO2 19 mmol/L (19-24); Allen Test Performed? Yes
[2018-11-08] MEDS ORDERED: SODIUM BICARB 8.4% 50 ML SYR (1 MEQ/ML) IV STA ×2 (21:05→22:26)
[2018-11-08] MEDS ORDERED: DEXTROSE 5% IN WATER 1,000 ML with SODIUM BICARB (1 MEQ/ML) 150 ML IV SCH (21:15)
[2018-11-08] MEDS ORDERED: fentaNYL (PF) 1,000 MCG in SODIUM CHLORIDE 0.9% 80 ML IV SCH (21:30)
[2018-11-08] MEDS: MONTELUKAST 10 MG TAB PO SCH (21:49)
[2018-11-08] MEDS: LISINOPRIL 10 MG TAB PO SCH (21:49)
[2018-11-08] MEDS: SOTALOL 120 MG TAB PO SCH (21:49)
[2018-11-08 22:03] LABS: Glucose,Whole Blood 228 mg/dL (75-99)
[2018-11-08] MEDS: DEXAMETHASONE SOD PHOSPHATE 4 MG/ML 1 ML VIAL IV SCH ×2 (22:05→22:07)
[2018-11-08] MEDS: SIMETHICONE 40 MG/0.6 ML DROPS 2,000 MG/30 ML BOTTLE PO SCH (22:08)
[2018-11-08] MEDS: MIDAZOLAM HCL 50 MG in SODIUM CHLORIDE 0.9% 40 ML IV SCH (23:11)
[2018-11-08] MEDS: ACETAMINOPHEN IV (For NPO) 1,000 MG in EMPTY BAG 1 BAG IVPB SCH (23:21)
[2018-11-08 23:38] LABS: Glucose,Whole Blood 197 mg/dL (75-99)
[2018-11-08] MEDS: HYDROmorphone 1 MG/ML 1 ML SYRINGE IVP PRN (23:43)
[2018-11-08] MEDS ORDERED: CISATRACURIUM 2 MG/ML 5 ML VIAL IV ONE (23:45)
[2018-11-08] MEDS: CISATRACURIUM 200 MG in SODIUM CHLORIDE 0.9% 180 ML IV SCH (23:59)
[2018-11-09] MEDS ORDERED: ACETAMINOPHEN IV (For NPO) 1,000 MG in EMPTY BAG 1 BAG IVPB SCH
[2018-11-09] MEDS: ARTIFICIAL TEARS-HYPROMELLOSE DROPS 15 ML BTL BOTH EYES SCH ×5 (00:29→16:57)
[2018-11-09] MEDS ORDERED: INSULIN ASPART (NovoLOG) 100 UNIT/ML VIAL SQ SCH ×2 (02:00→06:00)
[2018-11-09] MEDS: ACETAMINOPHEN IV (For NPO) 1,000 MG in EMPTY BAG 1 BAG IVPB SCH ×4 (02:00→18:24)
[2018-11-09] MEDS: SIMETHICONE 40 MG/0.6 ML DROPS 2,000 MG/30 ML BOTTLE PO SCH ×4 (02:01→18:17)
[2018-11-09] MEDS: 0.9% NACL WITH KCL 20 MEQ/L 1,000 ML IV SCH (02:55)
[2018-11-09 02:59] LABS: Appearance,Urine Cloudy (Clear); Bilirubin,Urine Negative (Negative); Blood,Urine Negative (Negative); Color,Urine Yellow; Glucose,Urine (UA) 4+ (Negative); Ketones,Urine 1+ (Negative); Leukocyte Esterase,Urine Negative (Negative); Mucus,Urine Rare /hpf; Nitrite,Urine Negative (Negative); PH, Urine 5.5 (5.0-8.0); Protein,Urine Negative (Negative); RBC,Urine 7 /hpf (0-5); Specific Gravity,Urine 1.032 (1.001-1.035); Uric Acid Crystals,Urine Many /hpf; Urobilinogen,Urine <2.0 mg/dL (<2.0)
[2018-11-09 03:01] LABS: Glucose,Whole Blood 196 mg/dL (75-99)
[2018-11-09] MEDS: ceFAZolin 3 GM in SODIUM CHLORIDE 0.9% 100 ML IVPB SCH ×2 (03:01→09:02)
[2018-11-09] MEDS: ENOXAPARIN 40 MG/0.4 ML SYRINGE SQ SCH ×2 (03:01→18:27)
[2018-11-09] MEDS: DEXAMETHASONE SOD PHOSPHATE 4 MG/ML 1 ML VIAL IV SCH ×4 (03:02→21:26)
[2018-11-09 05:11] LABS: Basophils # (A) 0.1 k/uL (0-0.2); Basophils % (A) 0 %; Eosinophils % (A) 0 %; HCT 40.7 % (39.0-53.0); HGB 12.8 gm/dL (13.0-17.5); Hypochromasia Marked; Lymphocytes # (A) 0.9 k/uL (1.0-4.8); Lymphocytes % (A) 4 %; MCH 27.9 pg (25.0-35.0); MCHC 31.5 g/dL (31.0-37.0); MCV 88.3 fL (80.0-100.0); Mean Platelet Volume 6.3; Monocytes # (A) 0.6 k/uL (0-1.0); Monocytes % (A) 3 %; Neutrophils # (A) 18.6 k/uL (1.3-7.7); Neutrophils % (A) 92 %; Platelet Count 186 k/uL (150-450); RBC 4.61 m/uL (4.30-5.90); RDW 15.5 % (11.5-15.5); WBC 20.2 k/uL (3.8-10.6)
[2018-11-09 05:21] LABS: Calcium 8.3 mg/dL (8.4-10.2); Magnesium 2.2 mg/dL (1.6-2.3); Phosphorus 5.7 mg/dL (2.5-4.5); Potassium 5.2 mmol/L (3.5-5.1)
[2018-11-09 05:44] LABS: Glucose,Whole Blood 199 mg/dL (75-99)
[2018-11-09 07:19] LABS: ABG Base Excess 1.8 mmol/L; ABG HCO3 29 mmol/L (21-25); ABG Oxygen Saturation 97.5 % (94-97); ABG PCO2 60 mmHg (35-45); ABG PH 7.28 (7.35-7.45); ABG PO2 101 mmHg (83-108); ABG TCO2 30 mmol/L (19-24); Allen Test Performed? Yes
[2018-11-09 07:56] LABS: Glucose,Whole Blood 212 mg/dL (75-99)
[2018-11-09] MEDS: ALBUTEROL NEBULIZED 2.5 MG/3 ML INHALATION SCH ×4 (08:00→20:28)
[2018-11-09] MEDS ORDERED: 0.9% NACL WITH KCL 20 MEQ/L 1,000 ML IV SCH (08:00)
[2018-11-09] MEDS: INSULIN ASPART (NovoLOG) 100 UNIT/ML VIAL SQ SCH ×5 (08:18→23:37)
[2018-11-09] MEDS: LISINOPRIL 20 MG TAB PO SCH (08:21)
[2018-11-09] MEDS: TAMSULOSIN 0.4 MG CAP.ER.24H PO SCH (08:21)
[2018-11-09] MEDS: SOTALOL 120 MG TAB PO SCH ×2 (08:22→21:24)
[2018-11-09] MEDS: PANTOPRAZOLE 40 MG/10 ML VIAL IV SCH (08:22)
--- NOTE | 2018-11-09 08:23 | XR ---
EXAMINATION TYPE: XR chest 1V portable DATE OF EXAM: 11/09/2018 COMPARISON: 11/08/2018 HISTORY: SOB, Follow Up FINDINGS: Indwelling tubes and catheters are unchanged. No change in bibasilar opacities. Stable appearance of the cardio-mediastinal structures at this time. Pleural effusion unchanged. IMPRESSION: 1. Stable portable chest. Clinical correlation and follow up until resolution is recommended.
[2018-11-09] MEDS: SODIUM FERRIC GLUCONAT-SUCROSE 125 MG in SODIUM CHLORIDE 0.9% 100 ML IVPB SCH (08:54)
[2018-11-09] MEDS ORDERED: CHLORHEXIDINE GLUCONATE 15 ML CUP MUCOUS MEM SCH (09:00)
[2018-11-09] MEDS: HYDROmorphone 1 MG/ML 1 ML SYRINGE IVP PRN ×2 (09:06→21:18)
--- NOTE | 2018-11-09 09:43 | P.CONS ---
History of Present Illness - History of Present Illness This is a pleasant 57 years old male with past medical history of obesity obs tructive sleep apnea on CPAP/BiPAP on home oxygen 4 L at night, atrial fibrillation status post pacemaker, heart failure, COPD, diabetes mellitus, GERD, hyperlipidemia, hypertension, osteoarthritis, kidney stones, peptic ulcer. Patient cannot provide information which was taken from the records and staff. Patient status post laparoscopic gastric bypass surgery with intraoperative EGD, today is postoperative day #1. After the procedure patient was placed on BiPAP and with her on our he has to be intubated for respiratory distress and desaturating. Patient currently in the ICU, he is intubated on mechanical vent and sedated. He is on midazolam, fentanyl and bicarb drips, as Osorio catheter in place with clear urine. Blood pressure 146/84. Review of Systems n/a Past Medical History Past Medical History: Atrial Fibrillation, Heart Failure, COPD, Diabetes Mellitus, GERD/Reflux, Hyperlipidemia, Hypertension, Osteoarthritis (OA), Sleep Apnea/CPAP/BIPAP Additional Past Medical History / Comment(s): IRON DEFICIENCY ANEMIA, COLON POLYPS, HEMMOROIDS, KIDNEY STONES., RUPTURED DISCS WITH BACK AND HIP PAIN., PACEMAKER, SLEEP APNEA WITH BI-PAP MACHINE AND OXYGEN AT 4 LITERS AT NIGHT., HX OF STOMACH ULCER., STATES CURRENTLY ON PROTEIN SHAKE DIET PER DRS INSTRUCTIONS. History of Any Multi-Drug Resistant Organisms: None Reported Past Surgical History: Pacemaker Additional Past Surgical History / Comment(s): LITHOTRIPSY Past Anesthesia/Blood Transfusion Reactions: No Reported Reaction Additional Past Anesthesia/Blood Transfusion Reaction / Comm: NO blood transfusion to date Type of Cardiac Device: Permanent Pacemaker Device Placement Date:: Kurtosys 2014 Past Psychological History: Depression Additional Psychological History / Comment(s): . Smoking Status: Former smoker Past Alcohol Use History: None Reported Additional Past Alcohol Use History / Comment(s): Quit in cigarettes in 1994, smoked 1-2ppd from teens. CURRENTLY VAPES. Past Drug Use History: Marijuana Additional Drug Use History / Comment(s): VAPES MARIJUANA - Past Family History Father Family Medical History: Cancer, Dementia, Myocardial Infarction (PR), Neurologic Disorder Additional Family Medical History / Comment(s): SKIN CA, quadruple bypass x2 , at age 89 from Parkinsons/Alzheimers Mother Family Medical History: Cancer Additional Family Medical History / Comment(s): Breast cancer and mastectomy of Left breast at age 63, Medications and Allergies Home Medications Medication Instructions Recorded Confirmed Type Omeprazole 20 mg PO DAILY PRN 02/05/18 11/05/18 History HYDROcodone/APAP 10-325MG [[place] 1 tab PO Q6HR PRN 03/25/18 11/05/18 History 10-325] Montelukast [Singulair] 10 mg PO HS 07/12/18 11/05/18 History Sotalol [Betapace] 120 mg PO BID 07/12/18 11/05/18 History Lisinopril [Zestril] 10 mg PO HS 11/05/18 11/05/18 History Lisinopril [Zestril] 20 mg PO QAM 11/05/18 11/05/18 History Bisacodyl [Dulcolax] 5 mg PO DAILY PRN #10 tablet. 11/08/18 Rx Ondansetron Odt [Zofran Odt] 4 mg PO Q8HR PRN #9 tab 11/08/18 Rx Simethicone 40 mg/0.6 ml Drops 40 mg PO PCHS PRN #30 ml 11/08/18 Rx [Mylicon Drops] Allergies Allergy/AdvReac Type Severity Reaction Status Date / Time atorvastatin [From Lipitor] AdvReac muscle pain Verified 11/05/18 08:09 Physical Exam Vitals: Vital Signs Temp Pulse Pulse Pulse Resp BP BP 11/09/18 09:00 85 16 144/89 11/09/18 08:12 85 11/09/18 08:00 98.3 F 81 12 110/62 11/09/18 07:00 80 15 98/56 11/09/18 06:45 76 17 95/60 11/09/18 06:30 77 15 102/58 11/09/18 06:15 77 16 103/56 11/09/18 06:00 76 16 106/45 11/09/18 05:45 77 14 124/77 11/09/18 05:30 81 19 121/67 11/09/18 05:15 78 18 128/77 11/09/18 05:00 83 16 119/65 11/09/18 04:45 80 18 135/81 11/09/18 04:30 84 12 113/67 11/09/18 04:15 81 18 121/77 11/09/18 04:00 99 F 82 12 119/78 11/09/18 03:45 85 13 112/69 11/09/18 03:30 83 16 123/71 11/09/18 03:15 85 18 113/68 11/09/18 03:00 82 15 119/66 11/09/18 02:45 87 15 105/58 11/09/18 02:30 84 19 104/58 11/09/18 02:15 85 13 117/64 11/09/18 02:00 88 16 112/59 11/09/18 01:45 87 19 98/57 11/09/18 01:30 86 14 101/52 11/09/18 01:15 87 17 106/57 11/09/18 01:00 89 15 128/67 11/09/18 00:45 91 15 146/83 11/09/18 00:30 93 19 149/99 11/09/18 00:15 94 19 135/88 11/09/18 00:02 99.3 F 93 19 135/88 11/09/18 00:00 99.3 F 94 19 135/88 11/08/18 23:00 88 32 H 110/66 11/08/18 22:00 86 30 H 116/66 11/08/18 21:00 90 33 H 87/52 11/08/18 20:00 85 30 H 101/52 11/08/18 19:30 98.7 F 25 H 99/45 11/08/18 19:15 80 12 148/80 11/08/18 18:53 78 12 153/78 11/08/18 18:38 80 12 158/74 11/08/18 18:23 80 12 109/56 11/08/18 18:08 80 81 29 H 164/87 11/08/18 17:52 80 28 H 170/82 11/08/18 17:37 82 28 H 185/88 11/08/18 17:22 98 F 80 28 H 180/82 11/08/18 11:35 97.8 F 75 18 BP Pulse Ox 11/09/18 09:00 96 11/09/18 08:12 11/09/18 08:00 96 11/09/18 07:00 95 11/09/18 06:45 95 11/09/18 06:30 95 11/09/18 06:15 95 11/09/18 06:00 94 L 11/09/18 05:45 94 L 11/09/18 05:30 94 L 11/09/18 05:15 93 L 11/09/18 05:00 93 L 11/09/18 04:45 93 L 11/09/18 04:30 93 L 11/09/18 04:15 93 L 11/09/18 04:00 94 L 11/09/18 03:45 94 L 11/09/18 03:30 94 L 11/09/18 03:15 94 L 11/09/18 03:00 94 L 11/09/18 02:45 94 L 11/09/18 02:30 94 L 11/09/18 02:15 94 L 11/09/18 02:00 94 L 11/09/18 01:45 94 L 11/09/18 01:30 94 L 11/09/18 01:15 94 L 11/09/18 01:00 93 L 11/09/18 00:45 94 L 11/09/18 00:30 94 L 11/09/18 00:15 94 L 11/09/18 00:02 95 11/09/18 00:00 11/08/18 23:00 94 L 11/08/18 22:00 96 11/08/18 21:00 95 11/08/18 20:00 95 11/08/18 19:30 11/08/18 19:15 100 11/08/18 18:53 11/08/18 18:38 98 11/08/18 18:23 11/08/18 18:08 95 11/08/18 17:52 95 11/08/18 17:37 93 L 11/08/18 17:22 94 L 11/08/18 11:35 116/64 95 Intake and Output 11/08/18 11/09/18 11/09/18 22:59 06:59 14:59 Intake Total 5371.168 6345.222 300.282 Output Total 1660 765 380 Balance -647.889 650.222 -79.718 Intake: IV 900 1300 250 0.9% NaCl with KCl 20 Meq 425 400 50 /l 1,000 ml @ 150 mls/hr IV .Q6H40M [facility] Rx#: [id number] Dextrose 5% in Water 1, 175 800 200 000 ml @ 100 mls/hr IV . [id number] ERICKSON with Sodium Bicarb (1 Meq/ml) 150 ml Rx#:[id number] ceFAZolin 3 gm In Sodium 100 Chloride 0.9% 100 ml @ 200 mls/hr IVPB ONCE ONE Rx#:[id number] Intake, IV Titration 112.111 115.222 50.282 Amount Cisatracurium 200 mg In 112.389 50.282 Sodium Chloride 0.9% 180 ml @ 3 MCG/KG/MIN 29.066 mls/hr IV .Q6H53M [facility]ICK[facility] Rx# :[id number] Midazolam HCl 50 mg In 2.833 Sodium Chloride 0.9% 40 ml @ 5 MG/HR 5 mls/hr IV .Q10H ERICKSON Rx#:[id number] Propofol 1,000 mg In 112.111 Empty Bag 1 bag @ 100 MCG /KG/MIN 96.887 mls/hr IV .Q1H2M [facility]ICK[facility] Rx#:[id number] Output: Urine 1650 765 380 Estimated Blood Loss 10 Other: Voiding Method Indwelling Catheter Indwelling Catheter Weight 165.6 kg -GENERAL: The patient is intubated and sedated, obese HEENT: Pupils are round and equally reacting to light. EOMI. No scleral icterus. No conjunctival pallor. Normocephalic, atraumatic. No pharyngeal erythema. No thyromegaly. CARDIOVASCULAR: S1 and S2 present. No murmurs, rubs, or gallops. PULMONARY: Chest is clear to auscultation, no wheezing or crackles. -ABDOMEN: Soft, nontender, nondistended, normoactive bowel sounds. No palpable organomegaly. Osorio catheter is in a Place. Laparoscopic wounds are closed MUSCULOSKELETAL: No joint swelling or deformity. EXTREMITIES: No cyanosis, clubbing, or pedal edema. NEUROLOGICAL: Gross neurological examination did not reveal any focal deficits. SKIN: No rashes. No petechiae Results CBC & Chem 7: 11/09/18 04:25 11/09/18 04:23 Labs: Abnormal Lab Results - Last 24 Hours (Table) 11/08/18 11/08/18 11/08/18 Range/Units 11:46 13:27 18:49 WBC (3.8-10.6) k/uL Hgb (13.0-17.5) gm/dL Neutrophils # (1.3-7.7) k/uL Lymphocytes # (1.0-4.8) k/uL APTT 31.9 H (22.0-30.0) sec ABG pH (7.35-7.45) ABG pCO2 (35-45) mmHg ABG pO2 (83-108) mmHg ABG HCO3 (21-25) mmol/L ABG Total CO2 (19-24) mmol/L ABG O2 Saturation (94-97) % Potassium (3.5-5.1) mmol/L Glucose (74-99) mg/dL POC Glucose (mg/dL) 121 H 251 H (75-99) mg/dL Calcium (8.4-10.2) mg/dL Phosphorus (2.5-4.5) mg/dL Urine Glucose (UA) (Negative) Urine Ketones (Negative) Urine RBC (0-5) /hpf Uric Acid Crystals (None) /hpf Urine Mucus (None) /hpf 11/08/18 11/08/18 11/08/18 Range/Units 19:34 20:45 21:52 WBC (3.8-10.6) k/uL Hgb (13.0-17.5) gm/dL Neutrophils # (1.3-7.7) k/uL Lymphocytes # (1.0-4.8) k/uL APTT (22.0-30.0) sec ABG pH 7.26 L (7.35-7.45) ABG pCO2 (35-45) mmHg ABG pO2 160 H (83-108) mmHg ABG HCO3 18 L (21-25) mmol/L ABG Total CO2 (19-24) mmol/L ABG O2 Saturation 99.0 H (94-97) % Potassium (3.5-5.1) mmol/L Glucose (74-99) mg/dL POC Glucose (mg/dL) 258 H 228 H (75-99) mg/dL Calcium (8.4-10.2) mg/dL Phosphorus (2.5-4.5) mg/dL Urine Glucose (UA) (Negative) Urine Ketones (Negative) Urine RBC (0-5) /hpf Uric Acid Crystals (None) /hpf Urine Mucus (None) /hpf 11/08/18 11/09/18 11/09/18 Range/Units 23:35 02:33 02:49 WBC (3.8-10.6) k/uL Hgb (13.0-17.5) gm/dL Neutrophils # (1.3-7.7) k/uL Lymphocytes # (1.0-4.8) k/uL APTT (22.0-30.0) sec ABG pH (7.35-7.45) ABG pCO2 (35-45) mmHg ABG pO2 (83-108) mmHg ABG HCO3 (21-25) mmol/L ABG Total CO2 (19-24) mmol/L ABG O2 Saturation (94-97) % Potassium (3.5-5.1) mmol/L Glucose (74-99) mg/dL POC Glucose (mg/dL) 197 H 196 H (75-99) mg/dL Calcium (8.4-10.2) mg/dL Phosphorus (2.5-4.5) mg/dL Urine Glucose (UA) 4+ H (Negative) Urine Ketones 1+ H (Negative) Urine RBC 7 H (0-5) /hpf Uric Acid Crystals Many H (None) /hpf Urine Mucus Rare H (None) /hpf 11/09/18 11/09/18 11/09/18 Range/Units 04:23 04:25 05:42 WBC 20.2 H (3.8-10.6) k/uL Hgb 12.8 L (13.0-17.5) gm/dL Neutrophils # 18.6 H (1.3-7.7) k/uL Lymphocytes # 0.9 L (1.0-4.8) k/uL APTT (22.0-30.0) sec ABG pH (7.35-7.45) ABG pCO2 (35-45) mmHg ABG pO2 (83-108) mmHg ABG HCO3 (21-25) mmol/L ABG Total CO2 (19-24) mmol/L ABG O2 Saturation (94-97) % Potassium 5.2 H (3.5-5.1) mmol/L Glucose 196 H (74-99) mg/dL POC Glucose (mg/dL) 199 H (75-99) mg/dL Calcium 8.3 L (8.4-10.2) mg/dL Phosphorus 5.7 H (2.5-4.5) mg/dL Urine Glucose (UA) (Negative) Urine Ketones (Negative) Urine RBC (0-5) /hpf Uric Acid Crystals (None) /hpf Urine Mucus (None) /hpf 11/09/18 11/09/18 Range/Units 07:17 07:54 WBC (3.8-10.6) k/uL Hgb (13.0-17.5) gm/dL Neutrophils # (1.3-7.7) k/uL Lymphocytes # (1.0-4.8) k/uL APTT (22.0-30.0) sec ABG pH 7.28 L (7.35-7.45) ABG pCO2 60 H (35-45) mmHg ABG pO2 (83-108) mmHg ABG HCO3 29 H (21-25) mmol/L ABG Total CO2 30 H (19-24) mmol/L ABG O2 Saturation 97.5 H (94-97) % Potassium (3.5-5.1) mmol/L Glucose (74-99) mg/dL POC Glucose (mg/dL) 212 H (75-99) mg/dL Calcium (8.4-10.2) mg/dL Phosphorus (2.5-4.5) mg/dL Urine Glucose (UA) (Negative) Urine Ketones (Negative) Urine RBC (0-5) /hpf Uric Acid Crystals (None) /hpf Urine Mucus (None) /hpf Assessment and Plan Assessment: Acute respiratory failure, status post intubation and on mechanical ventilation Obesity, morbid with body mass index of 52.4 Obstructive sleep apnea on CPAP/BiPAP and home oxygen 4 L at night Diabetes mellitus Hypertension Hyperlipidemia Atrial fibrillation, chronic heart failure, unknown ejection fraction COPD GERD History of peptic ulcer History of kidney stone Primary osteoarthritis Plan: This is a 57 years old male who presents with acute respiratory failure needing intubation postoperatively for his laparoscopic gastric bypass surgery. Pulmonary/critical care team were consulted and they're going to manage event and respiratory status. Postoperative care by the primary team. Pain management, control blood pressure, continue with lisinopril, Labs and medication were reviewed.. Continue same treatment. Continue with symptomatic treatment. Resume home medication. Monitor lytes and vitals. DVT and GI prophylaxis. Further recommendations of the clinical course of the patient DVT prophylaxis: Subcutaneous Lovenox GI Prophylaxis: Protonix Prognosis is guarded
[2018-11-09] MEDS: CISATRACURIUM 200 MG in SODIUM CHLORIDE 0.9% 180 ML IV SCH ×2 (09:50→14:22)
[2018-11-09] MEDS: SODIUM CHLORIDE 0.9% 1,000 ML IV SCH ×3 (10:04→23:40)
[2018-11-09] MEDS ORDERED: PROPOFOL 1,000 MG in EMPTY BAG 1 BAG IV SCH (10:30)
[2018-11-09] MEDS: MIDAZOLAM HCL 50 MG in SODIUM CHLORIDE 0.9% 40 ML IV SCH (10:39)
--- NOTE | 2018-11-09 10:59 | CONS ---
CONSULTATION This is a 57-year-old obese gentleman with a history of obstructive sleep apnea, he also has history of COPD, emphysema, bronchial asthma, type 2 diabetes and hypertension. He underwent a gastric bypass surgery yesterday performed by Dr. Carley Tyson. Post procedure, apparently was extubated, placed on a BiPAP and then re- intubated. He is now in the ICU, hemodynamically stable, not on any pressors. I was asked to see him mainly because of his cardiac history of atrial fibrillation which appears to be paroxysmal. However, on reviewing the old consult that is available from a muffler installer in the [facility] I do not see any mention of atrial fib. There is evidence of COPD, pulmonary hypertension, chronic hypoxemia. At the time of my evaluation, patient is intubated and hemodynamically stable in NSR. He is making urine and I do not see any issues with atrial fibrillation at this time. On reviewing the patient's data, it appears that his pH was about 7.3 or so. PAST MEDICAL HISTORY: 1. Bronchial asthma. 2. COPD, emphysema. 3. Type 2 diabetes. 4. History of obesity and arthritis. There is mention about history of atrial fibrillation and Coumadin in the initial H&P. or not. However, he is on Coumadin at home, which has been held apparently prior to his operation. At the time of my evaluation, he is still on a ventilator. I cannot obtain any meaningful history. MEDICATIONS: Home medication list that is available in the chart includes sotalol 120 mg b.i.d., omeprazole, Singulair 10 mg daily, Zestril 20 mg in the morning, 10 in the evening and also takes pain medications. Previous H&P indicated that patient has a history of atrial fib and has also been on Coumadin. PHYSICAL EXAMINATION: On examination, blood pressure is 118/70, pulse rate is about 84 and sinus. HEENT: Limited examination was performed, unremarkable. NECK: Supple. I cannot appreciate JVD. No carotid bruit. Heart exam reveals S1, S2 with somewhat distant heart sounds but regular. Lungs reveal diminished air entry bilateral lung bellamy. Abdomen is soft. Lower extremities reveal diminished pulses. Central nervous system assessment was not performed. IMPRESSION: 1. Obstructive sleep apnea syndrome with hypoxemia. 2. History of paroxysmal atrial fibrillation. 3. Hypertension. 4. Type 2 diabetes. 5. History of respiratory failure following his gastric bypass surgery yesterday. RECOMMENDATION: I am recommending that we resume oral medications when he is awake. Anticoagulation when okayed by surgeon. We will obtain an EKG today. Further input from Pulmonology. No other intervention is necessary from a cardiac standpoint at this time, pt is in NSR. MMFABIENNE / DEBORAN: [id number] / MTDD
[2018-11-09 11:23] LABS: Glucose,Whole Blood 176 mg/dL (75-99)
[2018-11-09] MEDS: DEXMEDETOMIDINE/0.9% NACL(PMX) 400 MCG in EMPTY BAG 1 BAG IV SCH ×2 (11:48→14:20)
[2018-11-09 11:50] LABS: ABG Base Excess 1.6 mmol/L; ABG HCO3 27 mmol/L (21-25); ABG Oxygen Saturation 95.2 % (94-97); ABG PCO2 51 mmHg (35-45); ABG PH 7.34 (7.35-7.45); ABG PO2 75 mmHg (83-108); ABG TCO2 29 mmol/L (19-24); Allen Test Performed? Yes
--- NOTE | 2018-11-09 12:30 | P.CNPUL ---
History of Present Illness Consult date: 11/09/18 Requesting physician: Carley Tyson Reason for consult: other (ICU management patient is intubated, on mechanical ventilation.) Chief complaint: Status post gastric bypass surgery History of present illness: This is a 57-year-old white male with history of morbid obesity, body mass index of 56.4, previous history of diastolic congestive heart failure, depression, obstructive sleep apnea syndrome/severe, GERD, degenerative joint disease, chronic back pain, chronic atrial fibrillation, hypertension, type 2 diabetes, asthma, iron deficiency anemia, patient was seen recently by Dr. Hand on consultation for his morbid obesity. Patient underwent robotic-assisted XY laparoscopic transgastric Patricia-en-Y gastric bypass, postoperatively, patient was on mechanical ventilation, and I was asked to see him on consultation. Patient was extubated shortly after he was in the recovery room, however he had to be placed on BiPAP, and had to be reintubated by RN MDS COORDINATOR. Transferred to the ICU on mechanical ventilation, and overnight the patient was extremely agitated, could not be ventilated properly unless the patient was given propofol, fentanyl, and placed on Nimbex drip. Patient was extremely agitated prior to the regimen of medications given. His morning ABG showed a pO2 of 101 pCO2 of 60 pH of 7.28 and this was on FiO2 of 45%, PEEP of 8, assist control rate of 14, and tidal volume of 500. His rate was increased to 16. This morning, I saw this patient, and I recommended stopping Nimbex, propofol, and fentanyl. Patient was awakened, however he was noted to be extremely agitated, restless, and was definitely not ready to be extubated. Repeat ABG on pressure support of 10 and CPAP showed a pO2 of 75 pCO2 of 51 pH of 7.34. Patient was extremely agitated, hence I recommended starting the patient on Precedex, and we'll try again to wean and x-rayed the patient this afternoon. CBC this morning showed leukocytosis with WBC of 20.2 hemoglobin 12.8. ABG as noted above. E lectrolytes were normal except for slightly elevated potassium of 5.2 BUN of 20 creatinine 1.08. Chest x-ray showed endotracheal tube to be quite proximal, and I have recommended adjustment of the endotracheal tube, advanced down few centimeters and follow-up chest x-ray was not felt to be necessary. Review of Systems ROS unobtainable: due to endotracheal tube Past Medical History Past Medical History: Atrial Fibrillation, Heart Failure, COPD, Diabetes Mellitus, GERD/Reflux, Hyperlipidemia, Hypertension, Osteoarthritis (OA), Sleep Apnea/CPAP/BIPAP Additional Past Medical History / Comment(s): IRON DEFICIENCY ANEMIA, COLON POLYPS, HEMMOROIDS, KIDNEY STONES., RUPTURED DISCS WITH BACK AND HIP PAIN., PACEMAKER, SLEEP APNEA WITH BI-PAP MACHINE AND OXYGEN AT 4 LITERS AT NIGHT., HX OF STOMACH ULCER., STATES CURRENTLY ON PROTEIN SHAKE DIET PER DRS INSTRUCTIONS. History of Any Multi-Drug Resistant Organisms: None Reported Past Surgical History: Pacemaker Additional Past Surgical History / Comment(s): LITHOTRIPSY Past Anesthesia/Blood Transfusion Reactions: No Reported Reaction Additional Past Anesthesia/Blood Transfusion Reaction / Comment(s): NO blood transfusion to date Type of Cardiac Device: Permanent Pacemaker Device Placement Date:: [employer] 2014 Past Psychological History: Depression Additional Psychological History / Comment(s): . Smoking Status: Former smoker Past Alcohol Use History: None Reported Additional Past Alcohol Use History / Comment(s): Quit in cigarettes in 1994, smoked 1-2ppd from teens. CURRENTLY VAPES. Past Drug Use History: Marijuana Additional Drug Use History / Comment(s): VAPES MARIJUANA - Past Family History Father Family Medical History: Cancer, Dementia, Myocardial Infarction ([place]), Neurologic Disorder Additional Family Medical History / Comment(s): SKIN CA, quadruple bypass x2 , at age 89 from Parkinsons/Alzheimers Mother Family Medical History: Cancer Additional Family Medical History / Comment(s): Breast cancer and mastectomy of Left breast at age 63, Medications and Allergies Home Medications Medication Instructions Recorded Confirmed Type Omeprazole 20 mg PO DAILY PRN 02/05/18 11/05/18 History HYDROcodone/APAP 10-325MG [[place] 1 tab PO Q6HR PRN 03/25/18 11/05/18 History 10-325] Montelukast [Singulair] 10 mg PO HS 07/12/18 11/05/18 History Sotalol [Betapace] 120 mg PO BID 07/12/18 11/05/18 History Lisinopril [Zestril] 10 mg PO HS 11/05/18 11/05/18 History Lisinopril [Zestril] 20 mg PO QAM 11/05/18 11/05/18 History Bisacodyl [Dulcolax] 5 mg PO DAILY PRN #10 tablet. 11/08/18 Rx Ondansetron Odt [Zofran Odt] 4 mg PO Q8HR PRN #9 tab 11/08/18 Rx Simethicone 40 mg/0.6 ml Drops 40 mg PO PCHS PRN #30 ml 11/08/18 Rx [Mylicon Drops] Allergies Allergy/AdvReac Type Severity Reaction Status Date / Time atorvastatin [From Lipitor] AdvReac muscle pain Verified 11/05/18 08:09 Physical Exam Vitals: Vital Signs Temp Pulse Pulse Resp BP BP Pulse Ox 11/09/18 11:44 91 11/09/18 11:34 89 11/09/18 11:00 79 17 112/61 95 11/09/18 10:00 82 16 90/48 95 11/09/18 09:00 85 16 144/89 96 11/09/18 08:12 85 11/09/18 08:00 98.3 F 81 12 110/62 96 11/09/18 07:00 80 15 98/56 95 11/09/18 06:45 76 17 95/60 95 11/09/18 06:30 77 15 102/58 95 11/09/18 06:15 77 16 103/56 95 11/09/18 06:00 76 16 106/45 94 L 11/09/18 05:45 77 14 124/77 94 L 11/09/18 05:30 81 19 121/67 94 L 11/09/18 05:15 78 18 128/77 93 L 11/09/18 05:00 83 16 119/65 93 L 11/09/18 04:45 80 18 135/81 93 L 11/09/18 04:30 84 12 113/67 93 L 11/09/18 04:15 81 18 121/77 93 L 11/09/18 04:00 99 F 82 12 119/78 94 L 11/09/18 03:45 85 13 112/69 94 L 11/09/18 03:30 83 16 123/71 94 L 11/09/18 03:15 85 18 113/68 94 L 11/09/18 03:00 82 15 119/66 94 L 11/09/18 02:45 87 15 105/58 94 L 11/09/18 02:30 84 19 104/58 94 L 11/09/18 02:15 85 13 117/64 94 L 11/09/18 02:00 88 16 112/59 94 L 11/09/18 01:45 87 19 98/57 94 L 11/09/18 01:30 86 14 101/52 94 L 11/09/18 01:15 87 17 106/57 94 L 11/09/18 01:00 89 15 128/67 93 L 11/09/18 00:45 91 15 146/83 94 L 11/09/18 00:30 93 19 149/99 94 L 11/09/18 00:15 94 19 135/88 94 L 11/09/18 00:02 99.3 F 93 19 135/88 95 11/09/18 00:00 99.3 F 94 19 135/88 11/08/18 23:00 88 32 H 110/66 94 L 11/08/18 22:00 86 30 H 116/66 96 11/08/18 21:00 90 33 H 87/52 95 11/08/18 20:00 85 30 H 101/52 95 11/08/18 19:30 98.7 F 25 H 99/45 11/08/18 19:15 80 12 148/80 100 11/08/18 18:53 78 12 153/78 11/08/18 18:38 80 12 158/74 98 11/08/18 18:23 80 12 109/56 11/08/18 18:08 80 81 29 H 164/87 95 11/08/18 17:52 80 28 H 170/82 95 11/08/18 17:37 82 28 H 185/88 93 L 11/08/18 17:22 98 F 80 28 H 180/82 94 L Intake and Output 11/08/18 11/09/18 11/09/18 22:59 06:59 14:59 Intake Total 3139.742 8541.222 921.199 Output Total 1660 765 605 Balance -647.889 650.222 316.199 Intake: IV 900 1300 650 0.9% NaCl with KCl 20 Meq 425 400 50 /l 1,000 ml @ 150 mls/hr IV .Q6H40M REPLACED BY [facility] Rx#: [id number] Dextrose 5% in Water 1, 175 800 200 000 ml @ 100 mls/hr IV . [id number] [facility] with Sodium Bicarb (1 Meq/ml) 150 ml Rx#:[id number] Sodium Chloride 0.9% 1, 300 000 ml @ 150 mls/hr IV . Q6H40M REPLACED BY [facility] Rx#:[id number] Sodium Ferric Gluconat- 100 Sucrose 125 mg In Sodium Chloride 0.9% 100 ml @ 100 mls/hr IVPB DAILY [facility] Rx#:[id number] ceFAZolin 3 gm In Sodium 100 Chloride 0.9% 100 ml @ 200 mls/hr IVPB ONCE ONE Rx#:[id number] Intake, IV Titration 112.111 115.222 271.199 Amount Cisatracurium 200 mg In 112.389 75.311 Sodium Chloride 0.9% 180 ml @ 3 MCG/KG/MIN 29.066 mls/hr IV .Q6H53M REPLACED BY [facility] Rx# :[id number] Dexmedetomidine/0.9% NaCl 10.143 (Pmx) 400 mcg In Empty Bag 1 bag @ Titrate IV . Q0M REPLACED BY [facility] Rx#:[id number] Midazolam HCl 50 mg In 2.833 47.167 Sodium Chloride 0.9% 40 ml @ 5 MG/HR 5 mls/hr IV .Q10H REPLACED BY [facility] Rx#:[id number] Propofol 1,000 mg In 112.111 Empty Bag 1 bag @ 100 MCG /KG/MIN 96.887 mls/hr IV .Q1H2M [facility] Rx#:[id number] Propofol 1,000 mg In 7.286 Empty Bag 1 bag @ Titrate IV .Q0M REPLACED BY [facility] Rx#: [id number] ceFAZolin 3 gm In Sodium 100 Chloride 0.9% 100 ml @ 200 mls/hr IVPB Q8HR [facility] Rx#:[id number] fentaNYL (PF) 1,000 mcg 31.292 In Sodium Chloride 0.9% 80 ml @ 50 MCG/HR 5 mls/ hr IV .Q20H REPLACED BY [facility] Rx#: [id number] Output: Urine 1650 765 605 Estimated Blood Loss 10 Other: Voiding Method Indwelling Catheter Indwelling Catheter Weight 165.6 kg Physical Exam: Revealed a 57-year-old white male on mechanical ventilation, morbidly obese, extremely restless and agitated. Head: Atraumatic, normocephalic. Endotracheal tube seems to be intact. HEENT: Short obese neck. [Neck is supple.] [No neck masses.] [No thyromegaly.] [No JVD.] Chest: [Diminished breath sounds at the bases, minimal crackles, no rhonchi no wheezes. Symmetrical chest expansion. No chest wall tenderness..] Cardiac Exam: Irregular irregular rhythm. [Normal S1 and S2, no S3 gallop, no murmur.] Abdomen: [Obese, Soft, nontender, no megaly, no rebound, no guarding, normal bowel sounds.] Extremities: [No clubbing, trace of bipedal edema, no cyanosis.] Neurological Exam: Arousable, follows simple instructions, but extremely agitated and restless on mechanical ventilation. But was able to follow instructions properly. Opens eyes and follows commands. Psychiatric: Extremely agitated, otherwise unremarkable. Skin: No rashes. Results - Laboratory Findings CBC and BMP: 11/09/18 04:25 11/09/18 04:23 ABG ABG pH 7.34 (7.35-7.45) L 11/09/18 11:48 ABG pCO2 51 mmHg (35-45) H 11/09/18 11:48 ABG pO2 75 mmHg (83-108) L 11/09/18 11:48 ABG O2 Saturation 95.2 % (94-97) 11/09/18 11:48 PT/INR, D-dimer PT 11.4 sec (9.0-12.0) 11/08/18 13:27 INR 1.1 (<1.2) 11/08/18 13:27 Abnormal lab findings: Abnormal Labs 11/08/18 11/08/18 11/08/18 11:46 13:27 18:49 WBC Hgb Neutrophils # Lymphocytes # APTT 31.9 H ABG pH ABG pCO2 ABG pO2 ABG HCO3 ABG Total CO2 ABG O2 Saturation Potassium Glucose POC Glucose (mg/dL) 121 H 251 H Calcium Phosphorus Urine Glucose (UA) Urine Ketones Urine RBC Uric Acid Crystals Urine Mucus 11/08/18 11/08/18 11/08/18 19:34 20:45 21:52 WBC Hgb Neutrophils # Lymphocytes # APTT ABG pH 7.26 L ABG pCO2 ABG pO2 160 H ABG HCO3 18 L ABG Total CO2 ABG O2 Saturation 99.0 H Potassium Glucose POC Glucose (mg/dL) 258 H 228 H Calcium Phosphorus Urine Glucose (UA) Urine Ketones Urine RBC Uric Acid Crystals Urine Mucus 11/08/18 11/09/18 11/09/18 23:35 02:33 02:49 WBC Hgb Neutrophils # Lymphocytes # APTT ABG pH ABG pCO2 ABG pO2 ABG HCO3 ABG Total CO2 ABG O2 Saturation Potassium Glucose POC Glucose (mg/dL) 197 H 196 H Calcium Phosphorus Urine Glucose (UA) 4+ H Urine Ketones 1+ H Urine RBC 7 H Uric Acid Crystals Many H Urine Mucus Rare H 11/09/18 11/09/18 11/09/18 04:23 04:25 05:42 WBC 20.2 H Hgb 12.8 L Neutrophils # 18.6 H Lymphocytes # 0.9 L APTT ABG pH ABG pCO2 ABG pO2 ABG HCO3 ABG Total CO2 ABG O2 Saturation Potassium 5.2 H Glucose 196 H POC Glucose (mg/dL) 199 H Calcium 8.3 L Phosphorus 5.7 H Urine Glucose (UA) Urine Ketones Urine RBC Uric Acid Crystals Urine Mucus 11/09/18 11/09/18 11/09/18 07:17 07:54 11:22 WBC Hgb Neutrophils # Lymphocytes # APTT ABG pH 7.28 L ABG pCO2 60 H ABG pO2 ABG HCO3 29 H ABG Total CO2 30 H ABG O2 Saturation 97.5 H Potassium Glucose POC Glucose (mg/dL) 212 H 176 H Calcium Phosphorus Urine Glucose (UA) Urine Ketones Urine RBC Uric Acid Crystals Urine Mucus 11/09/18 11:48 WBC Hgb Neutrophils # Lymphocytes # APTT ABG pH 7.34 L ABG pCO2 51 H ABG pO2 75 L ABG HCO3 27 H ABG Total CO2 29 H ABG O2 Saturation Potassium Glucose POC Glucose (mg/dL) Calcium Phosphorus Urine Glucose (UA) Urine Ketones Urine RBC Uric Acid Crystals Urine Mucus - Diagnostic Findings Chest x-ray: image reviewed (As noted in HPI.) Assessment and Plan Assessment: Impression: 1 status post laparoscopic gastric bypass surgery, postoperative day #1. 2 postoperative hypoxic and hypercapnic respiratory failure requiring intubation and mechanical ventilation, unexpected. 3 morbid obesity 4 obstructive sleep apnea syndrome/severe normally maintained on BiPAP at home and O2 at 4 L at night. 5 multiple comorbidities including chronic atrial fibrillation, hypertension, COPD, GERD, history of peptic ulcer disease, history of nephrolithiasis, and history of degenerative joint disease. Recommendation: Continue ventilatory support Continue GI and DVT prophylaxis Continue cardiac meds for his atrial fibrillation Continue bronchodilators for his underlying COPD Switch patient to Precedex, hopefully try to wean and extubate the patient this afternoon. Extreme postoperative anxiety and agitation Will try the patient again on a pressure support and CPAP trial, and if he fails again weaning, may recommend placing him back on propofol or Versed and on fentanyl. We'll continue to follow closely. Time with Patient: Greater than 30
--- NOTE | 2018-11-09 13:57 | P.PN ---
<Radha Coombs Kerry - Last Filed: 11/09/18 13:53> Subjective Progress Note Date: 11/09/18 CHIEF COMPLAINT: Morbid obesity HISTORY OF PRESENT ILLNESS: 57 year old male who underwent Patricia-en-y gastric bypass. POD #1. Patient was extubated after surgery. However, he required bipap postoperatively and eventual re-intubation. He remains intubated in the ICU. Patient did require a significant amount of sedation overnight. Pulmonary is following. Vital signs are stable. He is not requiring vasopressor support. Afebrile. PHYSICAL EXAM: VITAL SIGNS: Reviewed GENERAL: Well-developed in no acute distress-sedated on mechanical ventilation. HEENT: ET tube noted. No sclera icterus. Extraocular movements grossly intact. Moist buccal mucosa. Head is atraumatic, normocephalic. Hears conversational speech. No nasal drainage. NECK: Supple without lymphadenopathy. CHEST: Non-labored respirations and equal bilateral excursions. On mechanical ventilator. CARDIOVASCULAR: Irregular rhythm. Palpable 2+ radial pulses. ABDOMEN: Soft. Nondistended. Obese. Surgical incision sites clean dry intact. MUSCULOSKELETAL: No clubbing or cyanosis. NEUROLOGIC: Sedated on mechanical ventilation PSYCH: Sedated on mechanical ventilation SKIN: Well perfused. Good skin turgor. ASSESSMENT: 1. Morbid obesity due to excess calories 2. Body mass index of 56.4 to 52.4 3. Depressive disorder 4. Congestive heart failure 5. Past pneumonia 6. Obstructive sleep apnea, severe 7. Gastroesophageal reflux disease 8. Stomach ulcers 9. Osteoarthritis bilateral knee 10. Osteoarthritis lower back 11. Osteoarthritis right hip pain 12. Atrial fibrillation 13. Hypertensive heart disease 14. Diabetes type 2, non-insulin dependent 15. Asthma 16. Iron deficiency anemia 17. Hyperlipidemia 18. Chronic obstructive pulmonary disease, moderate 19. Depressive disorder 20. Family history morbid obesity 21. History of pacemaker placement 22. Chronic anticoagulant use 23. Hepatomegaly due to fatty liver disease 24. Incarcerated initial umbilical hernia with omentum PLAN: 1. Continue ventilator management per Dr. Lucero 2. Once extubated, may begin bariatric clear liquid diet. No straws or carbonated beverages 3. No OG or NG tube while intubated 4. Monitor labs. Repeat in AM Nurse practitioner note has been reviewed by physician. Signing provider agrees with the documented findings, assessment, and plan of care. Objective - Vital Signs Vital signs: Vital Signs Temp 98.6 F 11/09/18 13:00 Pulse 79 11/09/18 13:00 Resp 22 11/09/18 13:00 BP 111/60 11/09/18 13:00 Pulse Ox 95 11/09/18 13:00 Intake & Output 11/08/18 11/09/18 11/09/18 18:59 06:59 18:59 Intake Total 2300 2127.333 1321.199 Output Total 610 1815 880 Balance 1690 312.333 441.199 Weight 161.479 kg 165.6 kg Intake: IV 2300 1900 950 0.9% NaCl with KCl 20 Meq 825 50 /l 1,000 ml @ 150 mls/hr IV .Q6H40M [facility] Rx#: [id number] Dextrose 5% in Water 1, 975 200 000 ml @ 100 mls/hr IV . [id number] [facility] with Sodium Bicarb (1 Meq/ml) 150 ml Rx#:[id number] Sodium Chloride 0.9% 1, 600 000 ml @ 150 mls/hr IV . Q6H40M [facility] Rx#:[id number] Sodium Ferric Gluconat- 100 Sucrose 125 mg In Sodium Chloride 0.9% 100 ml @ 100 mls/hr IVPB DAILY [facility] Rx#:[id number] ceFAZolin 3 gm In Sodium 100 Chloride 0.9% 100 ml @ 200 mls/hr IVPB ONCE ONE Rx#:[id number] Intake, IV Titration 227.333 371.199 Amount ACETAMINOPHEN IV (For NPO 100 ) 1,000 mg In Empty Bag 1 bag @ 400 mls/hr IVPB Q6HR [facility] Rx#:[id number] Cisatracurium 200 mg In 112.389 75.311 Sodium Chloride 0.9% 180 ml @ 3 MCG/KG/MIN 29.066 mls/hr IV .Q6H53M [facility] Rx# :[id number] Dexmedetomidine/0.9% NaCl 10.143 (Pmx) 400 mcg In Empty Bag 1 bag @ Titrate IV . Q0M [facility] Rx#:[id number] Midazolam HCl 50 mg In 2.833 47.167 Sodium Chloride 0.9% 40 ml @ 5 MG/HR 5 mls/hr IV .Q10H [facility] Rx#:[id number] Propofol 1,000 mg In 112.111 Empty Bag 1 bag @ 100 MCG /KG/MIN 96.887 mls/hr IV .Q1H2M [facility] Rx#:[id number] Propofol 1,000 mg In 7.286 Empty Bag 1 bag @ Titrate IV .Q0M [facility] Rx#: [id number] ceFAZolin 3 gm In Sodium 100 Chloride 0.9% 100 ml @ 200 mls/hr IVPB Q8HR [facility] Rx#:[id number] fentaNYL (PF) 1,000 mcg 31.292 In Sodium Chloride 0.9% 80 ml @ 50 MCG/HR 5 mls/ hr IV .Q20H [facility] Rx#: [id number] Output: Urine 600 1815 880 Estimated Blood Loss 10 Other: Voiding Method Indwelling Catheter Indwelling Catheter - Labs CBC & Chem 7: 11/09/18 04:25 11/09/18 04:23 Labs: Abnormal Lab Results - Last 24 Hours (Table) 11/08/18 11/08/18 11/08/18 Range/Units 13:27 18:49 19:34 WBC (3.8-10.6) k/uL Hgb (13.0-17.5) gm/dL Neutrophils # (1.3-7.7) k/uL Lymphocytes # (1.0-4.8) k/uL APTT 31.9 H (22.0-30.0) sec ABG pH (7.35-7.45) ABG pCO2 (35-45) mmHg ABG pO2 (83-108) mmHg ABG HCO3 (21-25) mmol/L ABG Total CO2 (19-24) mmol/L ABG O2 Saturation (94-97) % Potassium (3.5-5.1) mmol/L Glucose (74-99) mg/dL POC Glucose (mg/dL) 251 H 258 H (75-99) mg/dL Calcium (8.4-10.2) mg/dL Phosphorus (2.5-4.5) mg/dL Urine Glucose (UA) (Negative) Urine Ketones (Negative) Urine RBC (0-5) /hpf Uric Acid Crystals (None) /hpf Urine Mucus (None) /hpf 11/08/18 11/08/18 11/08/18 Range/Units 20:45 21:52 23:35 WBC (3.8-10.6) k/uL Hgb (13.0-17.5) gm/dL Neutrophils # (1.3-7.7) k/uL Lymphocytes # (1.0-4.8) k/uL APTT (22.0-30.0) sec ABG pH 7.26 L (7.35-7.45) ABG pCO2 (35-45) mmHg ABG pO2 160 H (83-108) mmHg ABG HCO3 18 L (21-25) mmol/L ABG Total CO2 (19-24) mmol/L ABG O2 Saturation 99.0 H (94-97) % Potassium (3.5-5.1) mmol/L Glucose (74-99) mg/dL POC Glucose (mg/dL) 228 H 197 H (75-99) mg/dL Calcium (8.4-10.2) mg/dL Phosphorus (2.5-4.5) mg/dL Urine Glucose (UA) (Negative) Urine Ketones (Negative) Urine RBC (0-5) /hpf Uric Acid Crystals (None) /hpf Urine Mucus (None) /hpf 11/09/18 11/09/18 11/09/18 Range/Units 02:33 02:49 04:23 WBC (3.8-10.6) k/uL Hgb (13.0-17.5) gm/dL Neutrophils # (1.3-7.7) k/uL Lymphocytes # (1.0-4.8) k/uL APTT (22.0-30.0) sec ABG pH (7.35-7.45) ABG pCO2 (35-45) mmHg ABG pO2 (83-108) mmHg ABG HCO3 (21-25) mmol/L ABG Total CO2 (19-24) mmol/L ABG O2 Saturation (94-97) % Potassium 5.2 H (3.5-5.1) mmol/L Glucose 196 H (74-99) mg/dL POC Glucose (mg/dL) 196 H (75-99) mg/dL Calcium 8.3 L (8.4-10.2) mg/dL Phosphorus 5.7 H (2.5-4.5) mg/dL Urine Glucose (UA) 4+ H (Negative) Urine Ketones 1+ H (Negative) Urine RBC 7 H (0-5) /hpf Uric Acid Crystals Many H (None) /hpf Urine Mucus Rare H (None) /hpf 11/09/18 11/09/18 11/09/18 Range/Units 04:25 05:42 07:17 WBC 20.2 H (3.8-10.6) k/uL Hgb 12.8 L (13.0-17.5) gm/dL Neutrophils # 18.6 H (1.3-7.7) k/uL Lymphocytes # 0.9 L (1.0-4.8) k/uL APTT (22.0-30.0) sec ABG pH 7.28 L (7.35-7.45) ABG pCO2 60 H (35-45) mmHg ABG pO2 (83-108) mmHg ABG HCO3 29 H (21-25) mmol/L ABG Total CO2 30 H (19-24) mmol/L ABG O2 Saturation 97.5 H (94-97) % Potassium (3.5-5.1) mmol/L Glucose (74-99) mg/dL POC Glucose (mg/dL) 199 H (75-99) mg/dL Calcium (8.4-10.2) mg/dL Phosphorus (2.5-4.5) mg/dL Urine Glucose (UA) (Negative) Urine Ketones (Negative) Urine RBC (0-5) /hpf Uric Acid Crystals (None) /hpf Urine Mucus (None) /hpf 11/09/18 11/09/18 11/09/18 Range/Units 07:54 11:22 11:48 WBC (3.8-10.6) k/uL Hgb (13.0-17.5) gm/dL Neutrophils # (1.3-7.7) k/uL Lymphocytes # (1.0-4.8) k/uL APTT (22.0-30.0) sec ABG pH 7.34 L (7.35-7.45) ABG pCO2 51 H (35-45) mmHg ABG pO2 75 L (83-108) mmHg ABG HCO3 27 H (21-25) mmol/L ABG Total CO2 29 H (19-24) mmol/L ABG O2 Saturation (94-97) % Potassium (3.5-5.1) mmol/L Glucose (74-99) mg/dL POC Glucose (mg/dL) 212 H 176 H (75-99) mg/dL Calcium (8.4-10.2) mg/dL Phosphorus (2.5-4.5) mg/dL Urine Glucose (UA) (Negative) Urine Ketones (Negative) Urine RBC (0-5) /hpf Uric Acid Crystals (None) /hpf Urine Mucus (None) /hpf Microbiology - Last 24 Hours (Table) 11/09/18 04:06 Gram Stain - Preliminary Sputum Sputum Culture - Preliminary Assessment and Plan (1) Morbid (severe) obesity due to excess calories Current Visit: Yes Status: Acute Code(s): E66.01 - MORBID (SEVERE) OBESITY DUE TO EXCESS CALORIES SNOMED Code(s): 053691322 <Carley Tyson - Last Filed: 11/09/18 20:13> Subjective Notified by nursing that patient is extubated late this afternoon. We'll keep nothing by mouth. We will trial bariatric liquids in tomorrow morning with start of oral medications. Objective - Vital Signs Vital signs: Vital Signs Temp 99.7 F H 11/09/18 17:00 Pulse 82 11/09/18 19:00 Resp 22 11/09/18 19:00 BP 110/59 11/09/18 19:00 Pulse Ox 95 11/09/18 19:00 Intake & Output 11/09/18 11/09/18 11/10/18 06:59 18:59 06:59 Intake Total 2127.333 2316.902 Output Total 1815 1530 Balance 312.333 786.902 Weight 165.6 kg Intake: IV 1900 1850 0.9% NaCl with KCl 20 Meq 825 50 /l 1,000 ml @ 150 mls/hr IV .Q6H40M [facility] Rx#: [id number] Dextrose 5% in Water 1, 975 200 000 ml @ 100 mls/hr IV . [id number] [facility] with Sodium Bicarb (1 Meq/ml) 150 ml Rx#:[id number] Sodium Chloride 0.9% 1, 1500 000 ml @ 150 mls/hr IV . Q6H40M [facility] Rx#:[id number] Sodium Ferric Gluconat- 100 Sucrose 125 mg In Sodium Chloride 0.9% 100 ml @ 100 mls/hr IVPB DAILY [facility] Rx#:[id number] ceFAZolin 3 gm In Sodium 100 Chloride 0.9% 100 ml @ 200 mls/hr IVPB ONCE ONE Rx#:[id number] Intake, IV Titration 227.333 466.902 Amount ACETAMINOPHEN IV (For NPO 100 ) 1,000 mg In Empty Bag 1 bag @ 400 mls/hr IVPB Q6HR [facility] Rx#:[id number] Cisatracurium 200 mg In 112.389 75.311 Sodium Chloride 0.9% 180 ml @ 3 MCG/KG/MIN 29.066 mls/hr IV .Q6H53M [facility] Rx# :[id number] Dexmedetomidine/0.9% NaCl 105.846 (Pmx) 400 mcg In Empty Bag 1 bag @ Titrate IV . Q0M [facility] Rx#:[id number] Midazolam HCl 50 mg In 2.833 47.167 Sodium Chloride 0.9% 40 ml @ 5 MG/HR 5 mls/hr IV .Q10H [facility] Rx#:[id number] Propofol 1,000 mg In 112.111 Empty Bag 1 bag @ 100 MCG /KG/MIN 96.887 mls/hr IV .Q1H2M [facility] Rx#:[id number] Propofol 1,000 mg In 7.286 Empty Bag 1 bag @ Titrate IV .Q0M [facility] Rx#: [id number] ceFAZolin 3 gm In Sodium 100 Chloride 0.9% 100 ml @ 200 mls/hr IVPB Q8HR [facility] Rx#:[id number] fentaNYL (PF) 1,000 mcg 31.292 In Sodium Chloride 0.9% 80 ml @ 50 MCG/HR 5 mls/ hr IV .Q20H [facility] Rx#: [id number] Output: Urine 1815 1530 Other: Voiding Method Indwelling Catheter Indwelling Catheter - Labs CBC & Chem 7: 11/09/18 04:25 11/09/18 04:23 Labs: Abnormal Lab Results - Last 24 Hours (Table) 11/08/18 11/08/18 11/08/18 Range/Units 20:45 21:52 23:35 WBC (3.8-10.6) k/uL Hgb (13.0-17.5) gm/dL Neutrophils # (1.3-7.7) k/uL Lymphocytes # (1.0-4.8) k/uL ABG pH 7.26 L (7.35-7.45) ABG pCO2 (35-45) mmHg ABG pO2 160 H (83-108) mmHg ABG HCO3 18 L (21-25) mmol/L ABG Total CO2 (19-24) mmol/L ABG O2 Saturation 99.0 H (94-97) % Potassium (3.5-5.1) mmol/L Glucose (74-99) mg/dL POC Glucose (mg/dL) 228 H 197 H (75-99) mg/dL Calcium (8.4-10.2) mg/dL Phosphorus (2.5-4.5) mg/dL Urine Glucose (UA) (Negative) Urine Ketones (Negative) Urine RBC (0-5) /hpf Uric Acid Crystals (None) /hpf Urine Mucus (None) /hpf 11/09/18 11/09/18 11/09/18 Range/Units 02:33 02:49 04:23 WBC (3.8-10.6) k/uL Hgb (13.0-17.5) gm/dL Neutrophils # (1.3-7.7) k/uL Lymphocytes # (1.0-4.8) k/uL ABG pH (7.35-7.45) ABG pCO2 (35-45) mmHg ABG pO2 (83-108) mmHg ABG HCO3 (21-25) mmol/L ABG Total CO2 (19-24) mmol/L ABG O2 Saturation (94-97) % Potassium 5.2 H (3.5-5.1) mmol/L Glucose 196 H (74-99) mg/dL POC Glucose (mg/dL) 196 H (75-99) mg/dL Calcium 8.3 L (8.4-10.2) mg/dL Phosphorus 5.7 H (2.5-4.5) mg/dL Urine Glucose (UA) 4+ H (Negative) Urine Ketones 1+ H (Negative) Urine RBC 7 H (0-5) /hpf Uric Acid Crystals Many H (None) /hpf Urine Mucus Rare H (None) /hpf 11/09/18 11/09/18 11/09/18 Range/Units 04:25 05:42 07:17 WBC 20.2 H (3.8-10.6) k/uL Hgb 12.8 L (13.0-17.5) gm/dL Neutrophils # 18.6 H (1.3-7.7) k/uL Lymphocytes # 0.9 L (1.0-4.8) k/uL ABG pH 7.28 L (7.35-7.45) ABG pCO2 60 H (35-45) mmHg ABG pO2 (83-108) mmHg ABG HCO3 29 H (21-25) mmol/L ABG Total CO2 30 H (19-24) mmol/L ABG O2 Saturation 97.5 H (94-97) % Potassium (3.5-5.1) mmol/L Glucose (74-99) mg/dL POC Glucose (mg/dL) 199 H (75-99) mg/dL Calcium (8.4-10.2) mg/dL Phosphorus (2.5-4.5) mg/dL Urine Glucose (UA) (Negative) Urine Ketones (Negative) Urine RBC (0-5) /hpf Uric Acid Crystals (None) /hpf Urine Mucus (None) /hpf 11/09/18 11/09/18 11/09/18 Range/Units 07:54 11:22 11:48 WBC (3.8-10.6) k/uL Hgb (13.0-17.5) gm/dL Neutrophils # (1.3-7.7) k/uL Lymphocytes # (1.0-4.8) k/uL ABG pH 7.34 L (7.35-7.45) ABG pCO2 51 H (35-45) mmHg ABG pO2 75 L (83-108) mmHg ABG HCO3 27 H (21-25) mmol/L ABG Total CO2 29 H (19-24) mmol/L ABG O2 Saturation (94-97) % Potassium (3.5-5.1) mmol/L Glucose (74-99) mg/dL POC Glucose (mg/dL) 212 H 176 H (75-99) mg/dL Calcium (8.4-10.2) mg/dL Phosphorus (2.5-4.5) mg/dL Urine Glucose (UA) (Negative) Urine Ketones (Negative) Urine RBC (0-5) /hpf Uric Acid Crystals (None) /hpf Urine Mucus (None) /hpf 11/09/18 11/09/18 11/09/18 Range/Units 15:31 15:46 19:58 WBC (3.8-10.6) k/uL Hgb (13.0-17.5) gm/dL Neutrophils # (1.3-7.7) k/uL Lymphocytes # (1.0-4.8) k/uL ABG pH (7.35-7.45) ABG pCO2 (35-45) mmHg ABG pO2 (83-108) mmHg ABG HCO3 26 H (21-25) mmol/L ABG Total CO2 28 H (19-24) mmol/L ABG O2 Saturation 97.3 H (94-97) % Potassium (3.5-5.1) mmol/L Glucose (74-99) mg/dL POC Glucose (mg/dL) 177 H 155 H (75-99) mg/dL Calcium (8.4-10.2) mg/dL Phosphorus (2.5-4.5) mg/dL Urine Glucose (UA) (Negative) Urine Ketones (Negative) Urine RBC (0-5) /hpf Uric Acid Crystals (None) /hpf Urine Mucus (None) /hpf Microbiology - Last 24 Hours (Table) 11/09/18 04:06 Gram Stain - Preliminary Sputum Sputum Culture - Preliminary
[2018-11-09 15:36] LABS: ABG Base Excess 1.7 mmol/L; ABG HCO3 26 mmol/L (21-25); ABG Oxygen Saturation 97.3 % (94-97); ABG PCO2 41 mmHg (35-45); ABG PH 7.42 (7.35-7.45); ABG PO2 84 mmHg (83-108); ABG TCO2 28 mmol/L (19-24); Allen Test Performed? Yes
[2018-11-09 15:48] LABS: Glucose,Whole Blood 177 mg/dL (75-99)
[2018-11-09 19:59] LABS: Glucose,Whole Blood 155 mg/dL (75-99)
[2018-11-09] MEDS: LISINOPRIL 10 MG TAB PO SCH (21:22)
[2018-11-09] MEDS: MONTELUKAST 10 MG TAB PO SCH (21:29)
[2018-11-09] MEDS: PIPERACILLIN-TAZOBACTAM 3.375 GM in SODIUM CHLORIDE 0.9% 100 ML IVPB SCH (23:36)
[2018-11-09 23:41] LABS: Glucose,Whole Blood 191 mg/dL (75-99)
[2018-11-10] MEDS: HYDROmorphone 1 MG/ML 1 ML SYRINGE IVP PRN ×5 (00:11→16:00)
[2018-11-10] MEDS: SIMETHICONE 40 MG/0.6 ML DROPS 2,000 MG/30 ML BOTTLE PO SCH ×5 (00:11→23:44)
[2018-11-10] MEDS: ENOXAPARIN 40 MG/0.4 ML SYRINGE SQ SCH (03:03)
[2018-11-10] MEDS: DEXAMETHASONE SOD PHOSPHATE 4 MG/ML 1 ML VIAL IV SCH ×4 (03:03→20:10)
[2018-11-10] MEDS: HYDROcodone/APAP 15 ML SOLUTION PO PRN ×4 (03:56→23:53)
[2018-11-10] MEDS: INSULIN ASPART (NovoLOG) 100 UNIT/ML VIAL SQ SCH ×6 (03:56→23:44)
[2018-11-10 04:06] LABS: Glucose,Whole Blood 147 mg/dL (75-99)
[2018-11-10 05:25] LABS: Basophils % (A) 0 %; Eosinophils % (A) 0 %; HCT 30.1 % (39.0-53.0); Hypochromasia Moderate; Lymphocytes # (A) 0.9 k/uL (1.0-4.8); Lymphocytes % (A) 9 %; MCH 28.7 pg (25.0-35.0); MCV 87.2 fL (80.0-100.0); Mean Platelet Volume 6.5; Monocytes # (A) 0.4 k/uL (0-1.0); Monocytes % (A) 4 %; Neutrophils # (A) 8.5 k/uL (1.3-7.7); Neutrophils % (A) 87 %; Platelet Count 115 k/uL (150-450); RBC 3.46 m/uL (4.30-5.90); RDW 15.4 % (11.5-15.5); WBC 9.8 k/uL (3.8-10.6)
[2018-11-10 05:41] LABS: HGB 9.9 gm/dL (13.0-17.5)
[2018-11-10 05:53] LABS: African American GFR (CKD) >90 (>60 ml/min/1.73 sqM); Anion Gap 8 mmol/L; Blood Urea Nitrogen 29 mg/dL (9-20); Calcium 7.8 mg/dL (8.4-10.2); Carbon Dioxide 24 mmol/L (22-30); Chloride 107 mmol/L (98-107); Glucose 168 mg/dL (74-99); Potassium 4.6 mmol/L (3.5-5.1); Sodium 139 mmol/L (137-145)
[2018-11-10] MEDS: SODIUM CHLORIDE 0.9% 1,000 ML IV SCH ×3 (06:13→20:20)
--- NOTE | 2018-11-10 07:54 | XR ---
EXAMINATION TYPE: XR chest 1V portable DATE OF EXAM: 11/10/2018 CLINICAL HISTORY: Difficulty breathing progress study. TECHNIQUE: Single AP portable semiupright view of the chest is obtained. COMPARISON: Chest x-ray from one day earlier and November 08, 2018. FINDINGS: Interval extubation with removal of endotracheal tube. Persistent cardiomegaly with dual l ead pacemaker. Improving bibasilar opacities. No new focal airspace opacity, pleural effusion, or pne umothorax is evident. Osseous structures are intact. IMPRESSION: Interval extubation. Cardiomegaly with resolving bibasilar opacities. Persistent patchy l eft basilar atelectasis and/or infiltrate. No new infiltrate is seen.
[2018-11-10] MEDS ORDERED: BISACODYL 5 MG TABLET.DR PO PRN (08:00)
[2018-11-10] MEDS: ALBUTEROL NEBULIZED 2.5 MG/3 ML INHALATION SCH ×4 (08:40→19:49)
[2018-11-10 08:57] LABS: Glucose,Whole Blood 212 mg/dL (75-99)
[2018-11-10] MEDS: TAMSULOSIN 0.4 MG CAP.ER.24H PO SCH (09:14)
[2018-11-10] MEDS: LISINOPRIL 20 MG TAB PO SCH (09:15)
[2018-11-10] MEDS: PANTOPRAZOLE 40 MG/10 ML VIAL IV SCH (09:15)
[2018-11-10] MEDS: PIPERACILLIN-TAZOBACTAM 3.375 GM in SODIUM CHLORIDE 0.9% 100 ML IVPB SCH ×3 (09:16→23:44)
--- NOTE | 2018-11-10 09:22 | P.PN ---
Subjective Progress Note Date: 11/10/18 CHIEF COMPLAINT: Morbid obesity HISTORY OF PRESENT ILLNESS: The patient is a 57-year-old male postop day 2 status post gastric bypass. He has been extubated yesterday. He had acute expected vent dependent respiratory failure secondary to comorbidity of moderate to severe chronic structure pulmonary disease including sleep apnea. He is awake. He is tolerating bariatric clears. No reports of abdominal pain. He feels well. ROS: No reports of nausea and vomiting. No bowel movements. No fevers or chills. No new chest pain. No productive sputum PHYSICAL EXAM: VITAL SIGNS: Reviewed CONSTITUTIONAL: Well developed and in no acute distress. EYES: Conjuctivae without sclera icterus. Extraocular movements grossly intact. HEAD, EARS, NOSE, THROAT: Moist buccal mucosa. Head is atraumatic, normocephalic. Hears conversational speech. No nasal drainage. NECK: Supple. No thyroidomegaly. RESPIRATORY: Non-labored respirations and equal bilateral excursions. Mild pursestring breathing CARDIOVASCULAR: Palpable 2+ radial pulses. ABDOMEN: Incisions clean dry and intact. Soft. Nontender. Obese. MUSCULOSKELETAL: No gross deformity of the lower extremities noted. No clubbing. No cyanosis. SKIN: Good skin turgor. Well perfused. NEUROLOGIC: Cranial nerves I through XII grossly intact. No focal or lateralizing signs. PSYCH: Appropriate affect. Alert and oriented to person, place and time. CLINCAL LABS: White blood cell count from 20,000 to 9,900 and normal. Hemoglobin 9.9 likely delusional. ASSESSMENT: 1. Morbid obesity due to excess calories 2. Body mass index of 56.4 to 52.4 3. Depressive disorder 4. Congestive heart failure 5. Past pneumonia 6. Obstructive sleep apnea, severe 7. Gastroesophageal reflux disease 8. Stomach ulcers 9. Osteoarthritis bilateral knee 10. Osteoarthritis lower back 11. Osteoarthritis right hip pain 12. Atrial fibrillation 13. Hypertensive heart disease 14. Diabetes type 2, non-insulin dependent 15. Asthma 16. Iron deficiency anemia 17. Hyperlipidemia 18. Chronic obstructive pulmonary disease, moderate 19. Depressive disorder 20. Family history morbid obesity 21. History of pacemaker placement 22. Chronic anticoagulant use 23. Status post gastric bypass 24. Vent dependent respiratory failure secondary to moderate to severe COPD and sleep apnea, an expected outcome from patient's condition PLAN: 1. May restart antiarrhythmic medication 2. Hold antihypertensive medications as patient is currently normotensive 3. Coumadin and Lovenox on hold secondary to acute drop in hemoglobin likely delusional. Will repeat hemoglobin 8 hours post-draw 4. Will discharge home with Lovenox subcutaneous with Coumadin bridge 5. Stable to transfer to floor stable from a pulmonary standpoint Objective - Vital Signs Vital signs: Vital Signs Temp 98.8 F 11/10/18 04:00 Pulse 77 11/10/18 08:53 Resp 20 11/10/18 06:00 BP 114/50 11/10/18 06:00 Pulse Ox 95 11/10/18 06:00 Intake & Output 11/09/18 11/10/18 11/10/18 18:59 06:59 18:59 Intake Total 2316.902 2100 Output Total 1530 1515 Balance 786.902 585 Weight 168 kg Intake: IV 1850 1750 0.9% NaCl with KCl 20 Meq 50 /l 1,000 ml @ 150 mls/hr IV .Q6H40M [facility] Rx#: [id number] Dextrose 5% in Water 1, 200 000 ml @ 100 mls/hr IV . [id number] [facility] with Sodium Bicarb (1 Meq/ml) 150 ml Rx#:[id number] Piperacillin-Tazobactam 3 100 .375 gm In Sodium Chloride 0.9% 100 ml @ 25 mls/hr IVPB Q8HR [facility] Rx# :[id number] Sodium Chloride 0.9% 1, 1500 1650 000 ml @ 150 mls/hr IV . Q6H40M [facility] Rx#:[id number] Sodium Ferric Gluconat- 100 Sucrose 125 mg In Sodium Chloride 0.9% 100 ml @ 100 mls/hr IVPB DAILY [facility] Rx#:[id number] Intake, IV Titration 466.902 Amount ACETAMINOPHEN IV (For NPO 100 ) 1,000 mg In Empty Bag 1 bag @ 400 mls/hr IVPB Q6HR [facility] Rx#:[id number] Cisatracurium 200 mg In 75.311 Sodium Chloride 0.9% 180 ml @ 3 MCG/KG/MIN 29.066 mls/hr IV .Q6H53M [facility] Rx# :[id number] Dexmedetomidine/0.9% NaCl 105.846 (Pmx) 400 mcg In Empty Bag 1 bag @ Titrate IV . Q0M [facility] Rx#:[id number] Midazolam HCl 50 mg In 47.167 Sodium Chloride 0.9% 40 ml @ 5 MG/HR 5 mls/hr IV .Q10H [facility] Rx#:[id number] Propofol 1,000 mg In 7.286 Empty Bag 1 bag @ Titrate IV .Q0M [facility] Rx#: [id number] ceFAZolin 3 gm In Sodium 100 Chloride 0.9% 100 ml @ 200 mls/hr IVPB Q8HR [facility] Rx#:[id number] fentaNYL (PF) 1,000 mcg 31.292 In Sodium Chloride 0.9% 80 ml @ 50 MCG/HR 5 mls/ hr IV .Q20H [facility] Rx#: [id number] Oral 350 Output: Urine 1530 1515 Other: Voiding Method Indwelling Catheter Indwelling Catheter - Labs CBC & Chem 7: 11/10/18 04:20 11/10/18 04:29 Labs: Abnormal Lab Results - Last 24 Hours (Table) 11/09/18 11/09/18 11/09/18 Range/Units 11:22 11:48 15:31 RBC (4.30-5.90) m/uL Hgb (13.0-17.5) gm/dL Hct (39.0-53.0) % Plt Count (150-450) k/uL Neutrophils # (1.3-7.7) k/uL Lymphocytes # (1.0-4.8) k/uL ABG pH 7.34 L (7.35-7.45) ABG pCO2 51 H (35-45) mmHg ABG pO2 75 L (83-108) mmHg ABG HCO3 27 H 26 H (21-25) mmol/L ABG Total CO2 29 H 28 H (19-24) mmol/L ABG O2 Saturation 97.3 H (94-97) % BUN (9-20) mg/dL Glucose (74-99) mg/dL POC Glucose (mg/dL) 176 H (75-99) mg/dL Calcium (8.4-10.2) mg/dL 11/09/18 11/09/18 11/09/18 Range/Units 15:46 19:58 23:29 RBC (4.30-5.90) m/uL Hgb (13.0-17.5) gm/dL Hct (39.0-53.0) % Plt Count (150-450) k/uL Neutrophils # (1.3-7.7) k/uL Lymphocytes # (1.0-4.8) k/uL ABG pH (7.35-7.45) ABG pCO2 (35-45) mmHg ABG pO2 (83-108) mmHg ABG HCO3 (21-25) mmol/L ABG Total CO2 (19-24) mmol/L ABG O2 Saturation (94-97) % BUN (9-20) mg/dL Glucose (74-99) mg/dL POC Glucose (mg/dL) 177 H 155 H 191 H (75-99) mg/dL Calcium (8.4-10.2) mg/dL 11/10/18 11/10/18 11/10/18 Range/Units 03:53 04:20 04:29 RBC 3.46 L (4.30-5.90) m/uL Hgb 9.9 L D (13.0-17.5) gm/dL Hct 30.1 L (39.0-53.0) % Plt Count 115 L (150-450) k/uL Neutrophils # 8.5 H (1.3-7.7) k/uL Lymphocytes # 0.9 L (1.0-4.8) k/uL ABG pH (7.35-7.45) ABG pCO2 (35-45) mmHg ABG pO2 (83-108) mmHg ABG HCO3 (21-25) mmol/L ABG Total CO2 (19-24) mmol/L ABG O2 Saturation (94-97) % BUN 29 H (9-20) mg/dL Glucose 168 H (74-99) mg/dL POC Glucose (mg/dL) 147 H (75-99) mg/dL Calcium 7.8 L (8.4-10.2) mg/dL 11/10/18 Range/Units 08:55 RBC (4.30-5.90) m/uL Hgb (13.0-17.5) gm/dL Hct (39.0-53.0) % Plt Count (150-450) k/uL Neutrophils # (1.3-7.7) k/uL Lymphocytes # (1.0-4.8) k/uL ABG pH (7.35-7.45) ABG pCO2 (35-45) mmHg ABG pO2 (83-108) mmHg ABG HCO3 (21-25) mmol/L ABG Total CO2 (19-24) mmol/L ABG O2 Saturation (94-97) % BUN (9-20) mg/dL Glucose (74-99) mg/dL POC Glucose (mg/dL) 212 H (75-99) mg/dL Calcium (8.4-10.2) mg/dL Microbiology - Last 24 Hours (Table) 11/09/18 04:06 Gram Stain - Preliminary Sputum Sputum Culture - Preliminary
[2018-11-10] MEDS ORDERED: ONDANSETRON 4 MG/2 ML VIAL IVP PRN (10:10)
--- NOTE | 2018-11-10 11:34 | P.PN ---
Subjective Progress Note Date: 11/10/18 Principal diagnosis: Status post gastric bypass surgery postoperative day #2. This is a 57-year-old white male with history of morbid obesity, body mass index of 56.4, previous history of diastolic congestive heart failure, depression, obstructive sleep apnea syndrome/severe, GERD, degenerative joint disease, chronic back pain, chronic atrial fibrillation, hypertension, type 2 diabetes, asthma, iron deficiency anemia, patient was seen recently by Dr. Hand on consultation for his morbid obesity. Patient underwent robotic-assisted XY laparoscopic transgastric Patricia-en-Y gastric bypass, postoperatively, patient was on mechanical ventilation, and I was asked to see him on consultation. Patient was extubated shortly after he was in the recovery room, however he had to be placed on BiPAP, and had to be reintubated by CHANGE ANALYST. Transferred to the ICU on mechanical ventilation, and overnight the patient was extremely agitated, could not be ventilated properly unless the patient was given propofol, fentanyl, and placed on Nimbex drip. Patient was extremely agitated prior to the regimen of medications given. His morning ABG showed a pO2 of 101 pCO2 of 60 pH of 7.28 and this was on FiO2 of 45%, PEEP of 8, assist control rate of 14, and tidal volume of 500. His rate was increased to 16. This morning, I saw this patient, and I recommended stopping Nimbex, propofol, and fentanyl. Patient was awakened, however he was noted to be extremely agitated, restless, and was definitely not ready to be extubated. Repeat ABG on pressure support of 10 and CPAP showed a pO2 of 75 pCO2 of 51 pH of 7.34. Patient was extremely agitated, hence I recommended starting the patient on Precedex, and we'll try again to wean and x-rayed the patient this afternoon. CBC this morning showed leukocytosis with WBC of 20.2 hemoglobin 12.8. ABG as noted above. Electrolytes were normal except for slightly elevated potassium of 5.2 BUN of 20 creatinine 1.08. Chest x-ray showed endotracheal tube to be quite proximal, and I have recommended adjustment of the endotracheal tube, advanced down few centimeters and follow-up chest x-ray was not felt to be necessary. Patient was reevaluated today on 11/10/2018, I was able to extubate the patient late in the afternoon yesterday after another trial on Precedex. Patient was extubated uneventfully, remains off mechanical ventilation, patient is doing great. Patient was placed on BiPAP postextubation, he is presently on nasal c annula, and he normally uses BiPAP for his obstructive sleep apnea syndrome. Chest x-ray this morning is reassuring. Labs are basically normal including CBC and basic metabolic profile and renal profile. Patient is relatively asymptomatic. Patient was initially extubated as expected in the recovery room, however because of his underlying severe obesity and obstructive sleep apnea had to be reintubated by anesthesia. And I managed the patient in the ICU post- reintubation which is again not an expected finding but considering the patient's morbid obesity and obstructive sleep apnea syndrome, reintubation postextubation is not unusual. But again not expected. Objective - Vital Signs Vital signs: Vital Signs Temp 98.8 F 11/10/18 04:00 Pulse 77 11/10/18 08:53 Resp 20 11/10/18 06:00 BP 114/50 11/10/18 06:00 Pulse Ox 95 11/10/18 06:00 Intake & Output 11/09/18 11/10/18 11/10/18 18:59 06:59 18:59 Intake Total 2316.902 2100 Output Total 1530 1515 Balance 786.902 585 Weight 168 kg Intake: IV 1850 1750 0.9% NaCl with KCl 20 Meq 50 /l 1,000 ml @ 150 mls/hr IV .Q6H40M [facility] Rx#: [id number] Dextrose 5% in Water 1, 200 000 ml @ 100 mls/hr IV . [id number] [facility] with Sodium Bicarb (1 Meq/ml) 150 ml Rx#:[id number] Piperacillin-Tazobactam 3 100 .375 gm In Sodium Chloride 0.9% 100 ml @ 25 mls/hr IVPB Q8HR [facility] Rx# :[id number] Sodium Chloride 0.9% 1, 1500 1650 000 ml @ 150 mls/hr IV . Q6H40M [facility] Rx#:[id number] Sodium Ferric Gluconat- 100 Sucrose 125 mg In Sodium Chloride 0.9% 100 ml @ 100 mls/hr IVPB DAILY [facility] Rx#:[id number] Intake, IV Titration 466.902 Amount ACETAMINOPHEN IV (For NPO 100 ) 1,000 mg In Empty Bag 1 bag @ 400 mls/hr IVPB Q6HR [facility] Rx#:[id number] Cisatracurium 200 mg In 75.311 Sodium Chloride 0.9% 180 ml @ 3 MCG/KG/MIN 29.066 mls/hr IV .Q6H53M [facility] Rx# :[id number] Dexmedetomidine/0.9% NaCl 105.846 (Pmx) 400 mcg In Empty Bag 1 bag @ Titrate IV . Q0M [facility] Rx#:[id number] Midazolam HCl 50 mg In 47.167 Sodium Chloride 0.9% 40 ml @ 5 MG/HR 5 mls/hr IV .Q10H [facility] Rx#:[id number] Propofol 1,000 mg In 7.286 Empty Bag 1 bag @ Titrate IV .Q0M [facility] Rx#: [id number] ceFAZolin 3 gm In Sodium 100 Chloride 0.9% 100 ml @ 200 mls/hr IVPB Q8HR [facility] Rx#:[id number] fentaNYL (PF) 1,000 mcg 31.292 In Sodium Chloride 0.9% 80 ml @ 50 MCG/HR 5 mls/ hr IV .Q20H [facility] Rx#: [id number] Oral 350 Output: Urine 1530 1515 Other: Voiding Method Indwelling Catheter Indwelling Catheter - Exam Physical Exam: Revealed a 57-year-old white male on 2 L nasal cannula, in no distress Head: Atraumatic, normocephalic. HEENT: Short obese neck. [Neck is supple.] [No neck masses.] [No thyromegaly.] [No JVD.] Chest: [Diminished breath sounds at the bases, no crackles or rhonchi or wheezes. Symmetrical chest expansion.] Cardiac Exam: Irregular irregular rhythm. [Normal S1 and S2, no S3 gallop, no murmur.] Abdomen: [Obese, Soft, nontender, no megaly, no rebound, no guarding, normal bowel sounds.] Extremities: [No clubbing, trace of bipedal edema, no cyanosis.] Neurological Exam: Alert and oriented 3, no gross focal neurologic deficit. Psychiatric: Normal mood affect and normal mental status examination Skin: No rashes. - Labs CBC & Chem 7: 11/10/18 04:20 11/10/18 04:29 Labs: Abnormal Lab Results - Last 24 Hours (Table) 11/09/18 11/09/18 11/09/18 Range/Units 11:22 11:48 15:31 RBC (4.30-5.90) m/uL Hgb (13.0-17.5) gm/dL Hct (39.0-53.0) % Plt Count (150-450) k/uL Neutrophils # (1.3-7.7) k/uL Lymphocytes # (1.0-4.8) k/uL ABG pH 7.34 L (7.35-7.45) ABG pCO2 51 H (35-45) mmHg ABG pO2 75 L (83-108) mmHg ABG HCO3 27 H 26 H (21-25) mmol/L ABG Total CO2 29 H 28 H (19-24) mmol/L ABG O2 Saturation 97.3 H (94-97) % BUN (9-20) mg/dL Glucose (74-99) mg/dL POC Glucose (mg/dL) 176 H (75-99) mg/dL Calcium (8.4-10.2) mg/dL 11/09/18 11/09/18 11/09/18 Range/Units 15:46 19:58 23:29 RBC (4.30-5.90) m/uL Hgb (13.0-17.5) gm/dL Hct (39.0-53.0) % Plt Count (150-450) k/uL Neutrophils # (1.3-7.7) k/uL Lymphocytes # (1.0-4.8) k/uL ABG pH (7.35-7.45) ABG pCO2 (35-45) mmHg ABG pO2 (83-108) mmHg ABG HCO3 (21-25) mmol/L ABG Total CO2 (19-24) mmol/L ABG O2 Saturation (94-97) % BUN (9-20) mg/dL Glucose (74-99) mg/dL POC Glucose (mg/dL) 177 H 155 H 191 H (75-99) mg/dL Calcium (8.4-10.2) mg/dL 11/10/18 11/10/18 11/10/18 Range/Units 03:53 04:20 04:29 RBC 3.46 L (4.30-5.90) m/uL Hgb 9.9 L D (13.0-17.5) gm/dL Hct 30.1 L (39.0-53.0) % Plt Count 115 L (150-450) k/uL Neutrophils # 8.5 H (1.3-7.7) k/uL Lymphocytes # 0.9 L (1.0-4.8) k/uL ABG pH (7.35-7.45) ABG pCO2 (35-45) mmHg ABG pO2 (83-108) mmHg ABG HCO3 (21-25) mmol/L ABG Total CO2 (19-24) mmol/L ABG O2 Saturation (94-97) % BUN 29 H (9-20) mg/dL Glucose 168 H (74-99) mg/dL POC Glucose (mg/dL) 147 H (75-99) mg/dL Calcium 7.8 L (8.4-10.2) mg/dL 11/10/18 Range/Units 08:55 RBC (4.30-5.90) m/uL Hgb (13.0-17.5) gm/dL Hct (39.0-53.0) % Plt Count (150-450) k/uL Neutrophils # (1.3-7.7) k/uL Lymphocytes # (1.0-4.8) k/uL ABG pH (7.35-7.45) ABG pCO2 (35-45) mmHg ABG pO2 (83-108) mmHg ABG HCO3 (21-25) mmol/L ABG Total CO2 (19-24) mmol/L ABG O2 Saturation (94-97) % BUN (9-20) mg/dL Glucose (74-99) mg/dL POC Glucose (mg/dL) 212 H (75-99) mg/dL Calcium (8.4-10.2) mg/dL Microbiology - Last 24 Hours (Table) 11/09/18 04:06 Gram Stain - Preliminary Sputum Sputum Culture - Preliminary Assessment and Plan Assessment: Impression: 1 status post laparoscopic gastric bypass surgery, postoperative day #2 2 postoperative hypoxic and hypercapnic respiratory failure requiring intubation and mechanical ventilation, unexpected. However considering the patient's morbid obesity and obstructive sleep apnea, not unusual to develop this episode of postoperative hypoxic and hypercapnic respiratory failure and reintubation post extubation as noted in this patient. 3 morbid obesity 4 obstructive sleep apnea syndrome/severe normally maintained on BiPAP at home and O2 at 4 L at night. 5 multiple comorbidities including chronic atrial fibrillation, hypertension, COPD, GERD, history of peptic ulcer disease, history of nephrolithiasis, and history of degenerative joint disease. Recommendation: Continue incentive spirometry, continue bronchodilators, Continue GI and DVT prophylaxis Continue cardiac meds for his atrial fibrillation Continue bronchodilators for his underlying COPD Transfer patient today from ICU to a regular medical floor, patient is to use BiPAP at night and as needed. We will continue to follow. Time with Patient: Less than 30
[2018-11-10 12:05] LABS: Glucose,Whole Blood 189 mg/dL (75-99)
[2018-11-10] MEDS: SODIUM FERRIC GLUCONAT-SUCROSE 125 MG in SODIUM CHLORIDE 0.9% 100 ML IVPB SCH (12:46)
[2018-11-10] MEDS: SOTALOL 80 MG TAB PO SCH ×2 (12:46→20:14)
[2018-11-10 12:58] LABS: Basophils % (A) 0 %; Eosinophils # (A) 0.1 k/uL (0-0.7); Eosinophils % (A) 1 %; HCT 31.7 % (39.0-53.0); HGB 9.6 gm/dL (13.0-17.5); Hypochromasia Moderate; Lymphocytes # (A) 0.8 k/uL (1.0-4.8); Lymphocytes % (A) 8 %; MCH 27.8 pg (25.0-35.0); MCHC 30.3 g/dL (31.0-37.0); MCV 91.6 fL (80.0-100.0); Mean Platelet Volume 6.9; Monocytes # (A) 0.4 k/uL (0-1.0); Monocytes % (A) 3 %; Neutrophils # (A) 9.4 k/uL (1.3-7.7); Neutrophils % (A) 87 %; Platelet Count 140 k/uL (150-450); RBC 3.46 m/uL (4.30-5.90); RDW 15.8 % (11.5-15.5); WBC 10.8 k/uL (3.8-10.6)
[2018-11-10] MEDS ORDERED: CYCLOBENZAPRINE 10 MG TAB PO PRN (14:06)
--- NOTE | 2018-11-10 14:56 | P.PN ---
Subjective This is a pleasant 57 years old male with past medical history of obesity obstructive sleep apnea on CPAP/BiPAP on home oxygen 4 L at night, atrial fibrillation status post pacemaker, heart failure, COPD, diabetes mellitus, GERD, hyperlipidemia, hypertension, osteoarthritis, kidney stones, peptic ulcer. Patient cannot provide information which was taken from the records and staff. Patient status post laparoscopic gastric bypass surgery with intraoperative EGD, today is postoperative day #1. After the procedure patient was placed on BiPAP and with her on our he has to be intubated for respiratory distress and desaturating. Patient currently in the ICU, he is intubated on mechanical vent and sedated. He is on midazolam, fentanyl and bicarb drips, as Osorio catheter in place with clear urine. Blood pressure 146/84. 11/10/2018 Patient remains in the ICU, his got extubated and currently he is saturating 93% on room air, rest of Vitas looks stable, patient denies chest pain or dyspnea, no abdominal pain. No leg pain. No coughing. Labs showing mild leukocytosis of 10.8 K, hemoglobin 9.6, sugar is controlled. Sputum culture is growing gram- negative bacilli, and he was started on Zosyn. Chest x-ray: Improving bibasilar opacity patchy left basilar infiltrate or atelectasis . Objective - Vital Signs Vital signs: Vital Signs Temp 97.8 F 11/10/18 12:00 Pulse 90 11/10/18 13:00 Resp 18 11/10/18 13:00 BP 120/75 11/10/18 13:00 Pulse Ox 93 L 11/10/18 13:00 Intake & Output 11/09/18 11/10/18 11/10/18 18:59 06:59 18:59 Intake Total 2316.902 2100 1250 Output Total 1530 1515 1275 Balance 786.902 585 -25 Weight 168 kg Intake: IV 1850 1750 1150 0.9% NaCl with KCl 20 Meq 50 /l 1,000 ml @ 150 mls/hr IV .Q6H40M [facility] Rx#: [id number] Dextrose 5% in Water 1, 200 000 ml @ 100 mls/hr IV . [id number] [facility] with Sodium Bicarb (1 Meq/ml) 150 ml Rx#:[id number] Piperacillin-Tazobactam 3 100 .375 gm In Sodium Chloride 0.9% 100 ml @ 25 mls/hr IVPB Q8HR [facility] Rx# :[id number] Sodium Chloride 0.9% 1, 1500 1650 1050 000 ml @ 150 mls/hr IV . Q6H40M [facility] Rx#:[id number] Sodium Ferric Gluconat- 100 100 Sucrose 125 mg In Sodium Chloride 0.9% 100 ml @ 100 mls/hr IVPB DAILY [facility] Rx#:[id number] Intake, IV Titration 466.902 100 Amount ACETAMINOPHEN IV (For NPO 100 ) 1,000 mg In Empty Bag 1 bag @ 400 mls/hr IVPB Q6HR [facility] Rx#:[id number] Cisatracurium 200 mg In 75.311 Sodium Chloride 0.9% 180 ml @ 3 MCG/KG/MIN 29.066 mls/hr IV .Q6H53M [facility] Rx# :[id number] Dexmedetomidine/0.9% NaCl 105.846 (Pmx) 400 mcg In Empty Bag 1 bag @ Titrate IV . Q0M [facility] Rx#:[id number] Midazolam HCl 50 mg In 47.167 Sodium Chloride 0.9% 40 ml @ 5 MG/HR 5 mls/hr IV .Q10H [facility] Rx#:[id number] Piperacillin-Tazobactam 3 100 .375 gm In Sodium Chloride 0.9% 100 ml @ 25 mls/hr IVPB Q8HR [facility] Rx# :[id number] Propofol 1,000 mg In 7.286 Empty Bag 1 bag @ Titrate IV .Q0M [facility] Rx#: [id number] ceFAZolin 3 gm In Sodium 100 Chloride 0.9% 100 ml @ 200 mls/hr IVPB Q8HR [facility] Rx#:[id number] fentaNYL (PF) 1,000 mcg 31.292 In Sodium Chloride 0.9% 80 ml @ 50 MCG/HR 5 mls/ hr IV .Q20H [facility] Rx#: [id number] Oral 350 Output: Urine 1530 1515 1275 Other: Voiding Method Indwelling Catheter Indwelling Catheter Indwelling Catheter - Exam -GENERAL: Alert awake and oriented 3, obese. HEENT: Pupils are round and equally reacting to light. EOMI. No scleral icterus. No conjunctival pallor. Normocephalic, atraumatic. No pharyngeal erythema. No thyromegaly. CARDIOVASCULAR: S1 and S2 present. No murmurs, rubs, or gallops. PULMONARY: Chest is clear to auscultation, no wheezing or crackles. -ABDOMEN: Soft, nontender, nondistended, normoactive bowel sounds. No palpable organomegaly. Osorio catheter is in a Place. Laparoscopic wounds are closed MUSCULOSKELETAL: No joint swelling or deformity. EXTREMITIES: No cyanosis, clubbing, or pedal edema. NEUROLOGICAL: Gross neurological examination did not reveal any focal deficits. SKIN: No rashes. No petechiae - Labs CBC & Chem 7: 11/10/18 12:48 11/10/18 04:29 Labs: Abnormal Lab Results - Last 24 Hours (Table) 11/09/18 11/09/18 11/09/18 Range/Units 15:31 15:46 19:58 WBC (3.8-10.6) k/uL RBC (4.30-5.90) m/uL Hgb (13.0-17.5) gm/dL Hct (39.0-53.0) % MCHC (31.0-37.0) g/dL RDW (11.5-15.5) % Plt Count (150-450) k/uL Neutrophils # (1.3-7.7) k/uL Lymphocytes # (1.0-4.8) k/uL ABG HCO3 26 H (21-25) mmol/L ABG Total CO2 28 H (19-24) mmol/L ABG O2 Saturation 97.3 H (94-97) % BUN (9-20) mg/dL Glucose (74-99) mg/dL POC Glucose (mg/dL) 177 H 155 H (75-99) mg/dL Calcium (8.4-10.2) mg/dL 11/09/18 11/10/18 11/10/18 Range/Units 23:29 03:53 04:20 WBC (3.8-10.6) k/uL RBC 3.46 L (4.30-5.90) m/uL Hgb 9.9 L D (13.0-17.5) gm/dL Hct 30.1 L (39.0-53.0) % MCHC (31.0-37.0) g/dL RDW (11.5-15.5) % Plt Count 115 L (150-450) k/uL Neutrophils # 8.5 H (1.3-7.7) k/uL Lymphocytes # 0.9 L (1.0-4.8) k/uL ABG HCO3 (21-25) mmol/L ABG Total CO2 (19-24) mmol/L ABG O2 Saturation (94-97) % BUN (9-20) mg/dL Glucose (74-99) mg/dL POC Glucose (mg/dL) 191 H 147 H (75-99) mg/dL Calcium (8.4-10.2) mg/dL 11/10/18 11/10/18 11/10/18 Range/Units 04:29 08:55 12:03 WBC (3.8-10.6) k/uL RBC (4.30-5.90) m/uL Hgb (13.0-17.5) gm/dL Hct (39.0-53.0) % MCHC (31.0-37.0) g/dL RDW (11.5-15.5) % Plt Count (150-450) k/uL Neutrophils # (1.3-7.7) k/uL Lymphocytes # (1.0-4.8) k/uL ABG HCO3 (21-25) mmol/L ABG Total CO2 (19-24) mmol/L ABG O2 Saturation (94-97) % BUN 29 H (9-20) mg/dL Glucose 168 H (74-99) mg/dL POC Glucose (mg/dL) 212 H 189 H (75-99) mg/dL Calcium 7.8 L (8.4-10.2) mg/dL 11/10/18 Range/Units 12:48 WBC 10.8 H (3.8-10.6) k/uL RBC 3.46 L (4.30-5.90) m/uL Hgb 9.6 L (13.0-17.5) gm/dL Hct 31.7 L (39.0-53.0) % MCHC 30.3 L (31.0-37.0) g/dL RDW 15.8 H (11.5-15.5) % Plt Count 140 L (150-450) k/uL Neutrophils # 9.4 H (1.3-7.7) k/uL Lymphocytes # 0.8 L (1.0-4.8) k/uL ABG HCO3 (21-25) mmol/L ABG Total CO2 (19-24) mmol/L ABG O2 Saturation (94-97) % BUN (9-20) mg/dL Glucose (74-99) mg/dL POC Glucose (mg/dL) (75-99) mg/dL Calcium (8.4-10.2) mg/dL Microbiology - Last 24 Hours (Table) 11/09/18 04:06 Gram Stain - Preliminary Sputum Sputum Culture - Preliminary Gram Neg Bacilli Assessment and Plan Assessment: Acute respiratory failure, status post extubation on 11/10/18 Left lower lung infiltrate, suspicious for pneumonia with gram-negative bacilli in the sputum. Obesity, morbid with body mass index of 52.4. Status post laparoscopic gastric bypass surgery Obstructive sleep apnea on CPAP/BiPAP and home oxygen 4 L at night Diabetes mellitus Hypertension Hyperlipidemia Atrial fibrillation, chronic heart failure, unknown ejection fraction COPD GERD History of peptic ulcer History of kidney stone Primary osteoarthritis Plan: This is a 57 years old male who presents with acute respiratory failure needing intubation postoperatively for his laparoscopic gastric bypass surgery. Pulmonary/critical care team were consulted and they're going to manage event and respiratory status. Postoperative care by the primary team. Pain management, control blood pressure, continue with lisinopril,. Continue with Zosyn and follow-up sputum culture Labs and medication were reviewed.. Continue same treatment. Continue with symptomatic treatment. Resume home medication. Monitor lytes and vitals. DVT and GI prophylaxis. Further recommendations of the clinical course of the patient DVT prophylaxis: Subcutaneous Lovenox GI Prophylaxis: Protonix Prognosis is guarded
[2018-11-10] MEDS: GABAPENTIN 100 MG CAP PO SCH ×2 (15:39→20:14)
[2018-11-10 16:07] LABS: Glucose,Whole Blood 185 mg/dL (75-99)
[2018-11-10 20:07] LABS: Glucose,Whole Blood 231 mg/dL (75-99)
[2018-11-10] MEDS: MONTELUKAST 10 MG TAB PO SCH (20:14)
[2018-11-10] MEDS: LISINOPRIL 10 MG TAB PO SCH (20:14)
--- NOTE | 2018-11-10 23:11 | PN ---
PROGRESS NOTE Mr. Bowman has been extubated and I was able to get more meaningful history. He does have history of paroxysmal atrial fibrillation with sick sinus syndrome and has a permanent pacemaker in place placed in [place], [place]. He is in sinus rhythm today, comfortable, doing well. I am recommending that we resume his sotalol at 80 mg b.i.d. Continue all his other medications as before. His vital signs are stable. S1-S2 heard normally. Heart sounds are distantly. No significant murmurs. Lungs are clear. Abdomen and lower extremity exam unchanged. There is no JVD or carotid bruit. We will continue the above medications and continue the respiratory management and hopefully patient will be moved out of the intensive care unit later on today. MMODL / IJN: [id number] /
[2018-11-10 23:37] LABS: Glucose,Whole Blood 161 mg/dL (75-99)
[2018-11-11] MEDS: SODIUM CHLORIDE 0.9% 1,000 ML IV SCH ×3 (02:28→17:43)
[2018-11-11 03:59] LABS: Glucose,Whole Blood 194 mg/dL (75-99)
[2018-11-11] MEDS: INSULIN ASPART (NovoLOG) 100 UNIT/ML VIAL SQ SCH ×5 (04:02→20:48)
[2018-11-11] MEDS: HYDROmorphone 1 MG/ML 1 ML SYRINGE IVP PRN ×5 (04:05→23:53)
[2018-11-11] MEDS: SIMETHICONE 40 MG/0.6 ML DROPS 2,000 MG/30 ML BOTTLE PO SCH ×4 (06:04→23:56)
[2018-11-11] MEDS: HYDROcodone/APAP 15 ML SOLUTION PO PRN ×2 (06:07→13:56)
[2018-11-11 06:24] LABS: Basophils % (A) 0 %; Eosinophils % (A) 0 %; HCT 21.9 % (39.0-53.0); Hypochromasia Moderate; Lymphocytes # (A) 1.1 k/uL (1.0-4.8); Lymphocytes % (A) 14 %; MCH 28.3 pg (25.0-35.0); MCHC 32.7 g/dL (31.0-37.0); Mean Platelet Volume 6.9; Monocytes # (A) 0.3 k/uL (0-1.0); Monocytes % (A) 4 %; Neutrophils # (A) 6.3 k/uL (1.3-7.7); Neutrophils % (A) 81 %; Platelet Count 118 k/uL (150-450); RBC 2.54 m/uL (4.30-5.90); RDW 15.8 % (11.5-15.5); WBC 7.8 k/uL (3.8-10.6)
[2018-11-11 06:28] LABS: HGB 7.2 gm/dL (13.0-17.5); MCV 86.5 fL (80.0-100.0)
[2018-11-11 06:35] LABS: African American GFR (CKD) >90 (>60 ml/min/1.73 sqM); Anion Gap 6 mmol/L; Blood Urea Nitrogen 30 mg/dL (9-20); Calcium 7.7 mg/dL (8.4-10.2); Carbon Dioxide 24 mmol/L (22-30); Chloride 108 mmol/L (98-107); Glucose 181 mg/dL (74-99); Sodium 138 mmol/L (137-145)
[2018-11-11 06:40] LABS: Potassium 4.5 mmol/L (3.5-5.1)
[2018-11-11 07:09] LABS: Glucose,Whole Blood 200 mg/dL (75-99)
[2018-11-11] MEDS: ALBUTEROL NEBULIZED 2.5 MG/3 ML INHALATION SCH ×4 (07:09→21:26)
--- NOTE | 2018-11-11 09:01 | PN ---
PROGRESS NOTE Mr. Bowman is a gentleman who underwent gastric bypass surgery. He is doing well. He remains in sinus rhythm, resting comfortably. Vitals are stable. No JVD. S1, S2 heard normally. Heart sounds are distant, regular rhythm. Lungs are clear. Abdomen exam deferred. Rest of physical examination is unchanged. I am recommending that he should continue sotalol at 80 mg b.i.d. we can cut back his IV fluids and increase activity and move him to the surgical floor. MMODL / IJN: [id number] /
[2018-11-11] MEDS: TAMSULOSIN 0.4 MG CAP.ER.24H PO SCH (09:37)
[2018-11-11] MEDS: SODIUM FERRIC GLUCONAT-SUCROSE 125 MG in SODIUM CHLORIDE 0.9% 100 ML IVPB SCH (09:37)
[2018-11-11] MEDS: SOTALOL 80 MG TAB PO SCH ×2 (09:37→21:36)
[2018-11-11] MEDS: PIPERACILLIN-TAZOBACTAM 3.375 GM in SODIUM CHLORIDE 0.9% 100 ML IVPB SCH ×3 (09:38→23:57)
[2018-11-11] MEDS: PANTOPRAZOLE 40 MG/10 ML VIAL IV SCH (09:38)
--- NOTE | 2018-11-11 10:58 | P.PN ---
Subjective This is a pleasant 57 years old male with past medical history of obesity obstructive sleep apnea on CPAP/BiPAP on home oxygen 4 L at night, atrial fibrillation status post pacemaker, heart failure, COPD, diabetes mellitus, GERD, hyperlipidemia, hypertension, osteoarthritis, kidney stones, peptic ulcer. Patient cannot provide information which was taken from the records and staff. Patient status post laparoscopic gastric bypass surgery with intraoperative EGD, today is postoperative day #1. After the procedure patient was placed on BiPAP and with her on our he has to be intubated for respiratory distress and desaturating. Patient currently in the ICU, he is intubated on mechanical vent and sedated. He is on midazolam, fentanyl and bicarb drips, as Osorio catheter in place with clear urine. Blood pressure 146/84. 11/10/2018 Patient remains in the ICU, his got extubated and currently he is saturating 93% on room air, rest of Vitas looks stable, patient denies chest pain or dyspnea, no abdominal pain. No leg pain. No coughing. Labs showing mild leukocytosis of 10.8 K, hemoglobin 9.6, sugar is controlled. Sputum culture is growing gram- negative bacilli, and he was started on Zosyn. Chest x-ray: Improving bibasilar opacity patchy left basilar infiltrate or atelectasis . 11/11/2018 Patient line in bed, he is in ICU, breathing comfortably not in distress, he is saturating 95% on room air, rest of Vitas looks stable. Patient denies dyspnea or chest pain. His labs showing normal WBC at 7.8K, however his hemoglobin d ropped from 9.6 down to 7.2. Platelets are stable around 118. His sputum culture is growing Morganella Morganii, that is sensitive to Zosyn with his getting now. Cardiology follow-up is appreciated, he still continue on sotalol 80 mg twice a day upon their recommendation. Is currently on normal saline 75 L/h. Patient is improving gradually. However we will check for occult blood in stool Objective - Vital Signs Vital signs: Vital Signs Temp 98.2 F 11/11/18 10:00 Pulse 76 11/11/18 10:40 Resp 20 11/11/18 10:00 BP 121/67 11/11/18 10:00 Pulse Ox 95 11/11/18 10:00 Intake & Output 11/10/18 11/11/18 11/11/18 18:59 06:59 18:59 Intake Total 1650 1150 2710 Output Total 1575 Balance 75 1150 2710 Weight 167.8 kg Intake: IV 1550 1150 1550 Piperacillin-Tazobactam 3 100 100 100 .375 gm In Sodium Chloride 0.9% 100 ml @ 25 mls/hr IVPB Q8HR [facility] Rx# :[id number] Sodium Chloride 0.9% 1, 1350 1050 1350 000 ml @ 75 mls/hr IV . [id number] [facility] Rx#:[id number] Sodium Ferric Gluconat- 100 100 Sucrose 125 mg In Sodium Chloride 0.9% 100 ml @ 100 mls/hr IVPB DAILY [facility] Rx#:[id number] Intake, IV Titration 100 Amount Piperacillin-Tazobactam 3 100 .375 gm In Sodium Chloride 0.9% 100 ml @ 25 mls/hr IVPB Q8HR [facility] Rx# :[id number] Oral 1160 Output: Urine 1575 Other: Voiding Method Indwelling Catheter Indwelling Catheter # Voids 3 1 # Bowel Movements 1 - Exam -GENERAL: Alert awake and oriented 3, obese. HEENT: Pupils are round and equally reacting to light. EOMI. No scleral icterus. No conjunctival pallor. Normocephalic, atraumatic. No pharyngeal erythema. No thyromegaly. CARDIOVASCULAR: S1 and S2 present. No murmurs, rubs, or gallops. PULMONARY: Chest is clear to auscultation, no wheezing or crackles. -ABDOMEN: Soft, nontender, nondistended, normoactive bowel sounds. No palpable organomegaly. Osorio catheter is in a Place. Laparoscopic wounds are closed MUSCULOSKELETAL: No joint swelling or deformity. EXTREMITIES: No cyanosis, clubbing, or pedal edema. NEUROLOGICAL: Gross neurological examination did not reveal any focal deficits. SKIN: No rashes. No petechiae - Labs CBC & Chem 7: 11/11/18 05:28 11/11/18 05:28 Labs: Abnormal Lab Results - Last 24 Hours (Table) 11/10/18 11/10/18 11/10/18 Range/Units 12:03 12:48 15:53 WBC 10.8 H (3.8-10.6) k/uL RBC 3.46 L (4.30-5.90) m/uL Hgb 9.6 L (13.0-17.5) gm/dL Hct 31.7 L (39.0-53.0) % MCHC 30.3 L (31.0-37.0) g/dL RDW 15.8 H (11.5-15.5) % Plt Count 140 L (150-450) k/uL Neutrophils # 9.4 H (1.3-7.7) k/uL Lymphocytes # 0.8 L (1.0-4.8) k/uL Chloride (98-107) mmol/L BUN (9-20) mg/dL Glucose (74-99) mg/dL POC Glucose (mg/dL) 189 H 185 H (75-99) mg/dL Calcium (8.4-10.2) mg/dL 11/10/18 11/10/18 11/11/18 Range/Units 19:57 23:36 03:58 WBC (3.8-10.6) k/uL RBC (4.30-5.90) m/uL Hgb (13.0-17.5) gm/dL Hct (39.0-53.0) % MCHC (31.0-37.0) g/dL RDW (11.5-15.5) % Plt Count (150-450) k/uL Neutrophils # (1.3-7.7) k/uL Lymphocytes # (1.0-4.8) k/uL Chloride (98-107) mmol/L BUN (9-20) mg/dL Glucose (74-99) mg/dL POC Glucose (mg/dL) 231 H 161 H 194 H (75-99) mg/dL Calcium (8.4-10.2) mg/dL 11/11/18 11/11/18 11/11/18 Range/Units 05:28 05:28 07:08 WBC (3.8-10.6) k/uL RBC 2.54 L (4.30-5.90) m/uL Hgb 7.2 L D (13.0-17.5) gm/dL Hct 21.9 L (39.0-53.0) % MCHC (31.0-37.0) g/dL RDW 15.8 H (11.5-15.5) % Plt Count 118 L (150-450) k/uL Neutrophils # (1.3-7.7) k/uL Lymphocytes # (1.0-4.8) k/uL Chloride 108 H (98-107) mmol/L BUN 30 H (9-20) mg/dL Glucose 181 H (74-99) mg/dL POC Glucose (mg/dL) 200 H (75-99) mg/dL Calcium 7.7 L (8.4-10.2) mg/dL Microbiology - Last 24 Hours (Table) 11/09/18 04:06 Gram Stain - Final Sputum Sputum Culture - Final Morganella morganii Assessment and Plan Assessment: Acute respiratory failure, status post extubation on 11/10/18 Left lower lung infiltrate, suspicious for pneumonia with Morganella Morganii, in the sputum. Obesity, morbid with body mass index of 52.4. Status post laparoscopic gastric bypass surgery Anemia, with a crit drop of hemoglobin from 9.6 down to 7.2 Obstructive sleep apnea on CPAP/BiPAP and home oxygen 4 L at night Diabetes mellitus Hypertension Hyperlipidemia Atrial fibrillation, chronic heart failure, unknown ejection fraction COPD GERD History of peptic ulcer History of kidney stone Primary osteoarthritis Plan: This is a 57 years old male who presents with acute respiratory failure needing intubation postoperatively for his laparoscopic gastric bypass surgery. Pulmonary/critical care team were consulted and they're going to manage event and respiratory status. Postoperative care by the primary team. Pain management, control blood pressure, continue with lisinopril,. Continue with Zosyn. Monitor hemoglobin and check occult blood in stool Labs and medication were reviewed.. Continue same treatment. Continue with symptomatic treatment. Resume home medication. Monitor lytes and vitals. DVT and GI prophylaxis. Further recommendations of the clinical course of the patient DVT prophylaxis: Not indicated patient in view of DROP in hemoglobin GI Prophylaxis: Protonix Prognosis is guarded
[2018-11-11 11:13] VITALS: BMI 51.5
--- NOTE | 2018-11-11 11:32 | P.PN ---
Subjective Progress Note Date: 11/11/18 Principal diagnosis: Status post gastric bypass surgery postoperative day #3 This is a 57-year-old white male with history of morbid obesity, body mass index of 56.4, previous history of diastolic congestive heart failure, depression, obstructive sleep apnea syndrome/severe, GERD, degenerative joint disease, chronic back pain, chronic atrial fibrillation, hypertension, type 2 diabetes, asthma, iron deficiency anemia, patient was seen recently by Dr. Hand on consultation for his morbid obesity. Patient underwent robotic-assisted XY laparoscopic transgastric Patricia-en-Y gastric bypass, postoperatively, patient was on mechanical ventilation, and I was asked to see him on consultation. Patient was extubated shortly after he was in the recovery room, however he had to be placed on BiPAP, and had to be reintubated by [employer]AREHOUSE TECHNICIAN. Transferred to the ICU on mechanical ventilation, and overnight the patient was extremely agitated, could not be ventilated properly unless the patient was given propofol, fentanyl, and placed on Nimbex drip. Patient was extremely agitated prior to the regimen of medications given. His morning ABG showed a pO2 of 101 pCO2 of 60 pH of 7.28 a nd this was on FiO2 of 45%, PEEP of 8, assist control rate of 14, and tidal volume of 500. His rate was increased to 16. This morning, I saw this patient, and I recommended stopping Nimbex, propofol, and fentanyl. Patient was awakened, however he was noted to be extremely agitated, restless, and was definitely not ready to be extubated. Repeat ABG on pressure support of 10 and CPAP showed a pO2 of 75 pCO2 of 51 pH of 7.34. Patient was extremely agitated, hence I recommended starting the patient on Precedex, and we'll try again to wean and x-rayed the patient this afternoon. CBC this morning showed leukocytosis with WBC of 20.2 hemoglobin 12.8. ABG as noted above. Electrolytes were normal except for slightly elevated potassium of 5.2 BUN of 20 creatinine 1.08. Chest x-ray showed endotracheal tube to be quite proximal, and I have recommended adjustment of the endotracheal tube, advanced down few centimeters and follow-up chest x-ray was not felt to be necessary. Patient was reevaluated today on 11/10/2018, I was able to extubate the patient late in the afternoon yesterday after another trial on Precedex. Patient was extubated uneventfully, remains off mechanical ventilation, patient is doing great. Patient was placed on BiPAP postextubation, he is presently on nasal ca nnula, and he normally uses BiPAP for his obstructive sleep apnea syndrome. Chest x-ray this morning is reassuring. Labs are basically normal including CBC and basic metabolic profile and renal profile. Patient is relatively asymptomatic. Patient was initially extubated as expected in the recovery room, however because of his underlying severe obesity and obstructive sleep apnea had to be reintubated by anesthesia. And I managed the patient in the ICU post- reintubation which is again not an expected finding but considering the patient's morbid obesity and obstructive sleep apnea syndrome, reintubation postextubation is not unusual. But again not expected. Reevaluated today in the ICU patient is presently on overflow. Patient is doing well, asymptomatic, denies any cough no wheezing no shortness of breath. Denies any shortness of breath, no cough, no wheezing, sputum is positive for Morganella morganii. Patient is receiving Zosyn. CBC is relatively normal except for hemoglobin of 7.2, patient is receiving iron infusion. Electrolytes are normal renal profile is normal Objective - Vital Signs Vital signs: Vital Signs Temp 98.2 F 11/11/18 10:00 Pulse 78 11/11/18 10:50 Resp 20 11/11/18 10:00 BP 121/67 11/11/18 10:00 Pulse Ox 95 11/11/18 10:00 Intake & Output 11/10/18 11/11/18 11/11/18 18:59 06:59 18:59 Intake Total 1650 1150 2710 Output Total 1575 Balance 75 1150 2710 Weight 167.8 kg 167.8 kg Intake: IV 1550 1150 1550 Piperacillin-Tazobactam 3 100 100 100 .375 gm In Sodium Chloride 0.9% 100 ml @ 25 mls/hr IVPB Q8HR [facility] Rx# :[id number] Sodium Chloride 0.9% 1, 1350 1050 1350 000 ml @ 75 mls/hr IV . [id number] [facility] Rx#:[id number] Sodium Ferric Gluconat- 100 100 Sucrose 125 mg In Sodium Chloride 0.9% 100 ml @ 100 mls/hr IVPB DAILY [facility] Rx#:[id number] Intake, IV Titration 100 Amount Piperacillin-Tazobactam 3 100 .375 gm In Sodium Chloride 0.9% 100 ml @ 25 mls/hr IVPB Q8HR [facility] Rx# :[id number] Oral 1160 Output: Urine 1575 Other: Voiding Method Indwelling Catheter Indwelling Catheter # Voids 3 1 # Bowel Movements 1 - Exam Physical Exam: Revealed a 57-year-old white male on room air. Head: Atraumatic, normocephalic. HEENT: Short obese neck. [Neck is supple.] [No neck masses.] [No thyromegaly.] [No JVD.] Chest: [Diminished breath sounds at the bases, no crackles or rhonchi or wheezes. Symmetrical chest expansion.] Cardiac Exam: Irregular irregular rhythm. [Normal S1 and S2, no S3 gallop, no murmur.] Abdomen: [Obese, Soft, nontender, no megaly, no rebound, no guarding, normal bowel sounds.] Extremities: [No clubbing, trace of bipedal edema, no cyanosis.] Neurological Exam: Alert and oriented 3, no gross focal neurologic deficit. Psychiatric: Normal mood affect and normal mental status examination Skin: No rashes. - Labs CBC & Chem 7: 11/11/18 05:28 11/11/18 05:28 Labs: Abnormal Lab Results - Last 24 Hours (Table) 11/10/18 11/10/18 11/10/18 Range/Units 12:03 12:48 15:53 WBC 10.8 H (3.8-10.6) k/uL RBC 3.46 L (4.30-5.90) m/uL Hgb 9.6 L (13.0-17.5) gm/dL Hct 31.7 L (39.0-53.0) % MCHC 30.3 L (31.0-37.0) g/dL RDW 15.8 H (11.5-15.5) % Plt Count 140 L (150-450) k/uL Neutrophils # 9.4 H (1.3-7.7) k/uL Lymphocytes # 0.8 L (1.0-4.8) k/uL Chloride (98-107) mmol/L BUN (9-20) mg/dL Glucose (74-99) mg/dL POC Glucose (mg/dL) 189 H 185 H (75-99) mg/dL Calcium (8.4-10.2) mg/dL 11/10/18 11/10/18 11/11/18 Range/Units 19:57 23:36 03:58 WBC (3.8-10.6) k/uL RBC (4.30-5.90) m/uL Hgb (13.0-17.5) gm/dL Hct (39.0-53.0) % MCHC (31.0-37.0) g/dL RDW (11.5-15.5) % Plt Count (150-450) k/uL Neutrophils # (1.3-7.7) k/uL Lymphocytes # (1.0-4.8) k/uL Chloride (98-107) mmol/L BUN (9-20) mg/dL Glucose (74-99) mg/dL POC Glucose (mg/dL) 231 H 161 H 194 H (75-99) mg/dL Calcium (8.4-10.2) mg/dL 11/11/18 11/11/18 11/11/18 Range/Units 05:28 05:28 07:08 WBC (3.8-10.6) k/uL RBC 2.54 L (4.30-5.90) m/uL Hgb 7.2 L D (13.0-17.5) gm/dL Hct 21.9 L (39.0-53.0) % MCHC (31.0-37.0) g/dL RDW 15.8 H (11.5-15.5) % Plt Count 118 L (150-450) k/uL Neutrophils # (1.3-7.7) k/uL Lymphocytes # (1.0-4.8) k/uL Chloride 108 H (98-107) mmol/L BUN 30 H (9-20) mg/dL Glucose 181 H (74-99) mg/dL POC Glucose (mg/dL) 200 H (75-99) mg/dL Calcium 7.7 L (8.4-10.2) mg/dL Microbiology - Last 24 Hours (Table) 11/09/18 04:06 Gram Stain - Final Sputum Sputum Culture - Final Morganella morganii Assessment and Plan Assessment: Impression: 1 status post laparoscopic gastric bypass surgery, postoperative day #3 2 postoperative hypoxic and hypercapnic respiratory failure requiring intubation and mechanical ventilation, unexpected. However considering the patient's morbid obesity and obstructive sleep apnea, not unusual to develop this episode of postoperative hypoxic and hypercapnic respiratory failure and reintubation post extubation as noted in this patient. 3 morbid obesity 4 obstructive sleep apnea syndrome/severe normally maintained on BiPAP at home and O2 at 4 L at night. 5 multiple comorbidities including chronic atrial fibrillation, hypertension, COPD, GERD, history of peptic ulcer disease, history of nephrolithiasis, and history of degenerative joint disease. Recommendation: Continue incentive spirometry, continue bronchodilators, Continue GI and DVT prophylaxis Continue cardiac meds for his atrial fibrillation Continue bronchodilators for his underlying COPD Continue iron for his anemia secondary to surgery and blood loss from surgery. Patient will be transferred out of the ICU once a bed is available on the floor, we'll sign off and see the patient on when necessary basis. Time with Patient: Less than 30
[2018-11-11 12:03] LABS: Glucose,Whole Blood 167 mg/dL (75-99)
[2018-11-11 12:44] LABS: Anisocytosis Slight; HCT 25.2 % (39.0-53.0); HGB 7.8 gm/dL (13.0-17.5); Hypochromasia Moderate; MCV 90.5 fL (80.0-100.0); Mean Platelet Volume 8.4; Platelet Count 134 k/uL (150-450); RBC 2.79 m/uL (4.30-5.90); RDW 16.4 % (11.5-15.5)
[2018-11-11 16:53] LABS: Glucose,Whole Blood 157 mg/dL (75-99)
--- NOTE | 2018-11-11 17:30 | P.PN ---
Subjective Progress Note Date: 11/11/18 CHIEF COMPLAINT: Morbid obesity HISTORY OF PRESENT ILLNESS: The patient is a 57-year-old male postop day 3 status post gastric bypass, 11/08/2018. He is tolerating bariatric clear liquid diet. He is passing flatus and had a bloody bowel movement which is to be expected with recent history of gastric bypass. Lovenox has been discontinued as his hemoglobin dropped from 9-7. Otherwise he is asymptomatic. He's been off blood pressure medications his blood pressures has been normotensive. No chest pain. He is using his BiPAP support. Pain control. He is ambulating. Cardiology following patient's in normal sinus rhythm. He is receiving iron infusions for known iron deficiency anemia. ROS: No reports of nausea and vomiting. Had bowel movements. No fevers or chills. No new chest pain. PHYSICAL EXAM: VITAL SIGNS: Reviewed CONSTITUTIONAL: Well developed and in no acute distress. EYES: Conjuctivae without sclera icterus. Extraocular movements grossly intact. HEAD, EARS, NOSE, THROAT: Moist buccal mucosa. Head is atraumatic, normocephalic. Hears conversational speech. No nasal drainage. RESPIRATORY: Non-labored respirations and equal bilateral excursions with BiPAP machine CARDIOVASCULAR: Palpable 2+ radial pulses. ABDOMEN: Incisions clean dry and intact. Soft. Nontender. Obese. MUSCULOSKELETAL: No gross deformity of the lower extremities noted. No clubbing. No cyanosis. SKIN: Good skin turgor. Well perfused. NEUROLOGIC: Cranial nerves I through XII grossly intact. No focal or lateralizing signs. PSYCH: Appropriate affect. Alert and oriented to person, place and time. CLINCAL LABS: White blood cell count improved from 20,000-11,000. Hemoglobin 9.9 down to 7.8. ASSESSMENT: 1. Morbid obesity due to excess calories 2. Body mass index of 56.4 to 52.4 3. Depressive disorder 4. Congestive heart failure 5. Past pneumonia 6. Obstructive sleep apnea, severe 7. Gastroesophageal reflux disease 8. Stomach ulcers 9. Osteoarthritis bilateral knee 10. Osteoarthritis lower back 11. Osteoarthritis right hip pain 12. Atrial fibrillation 13. Hypertensive heart disease 14. Diabetes type 2, non-insulin dependent 15. Asthma 16. Iron deficiency anemia 17. Hyperlipidemia 18. Chronic obstructive pulmonary disease, moderate 19. Depressive disorder 20. Family history morbid obesity 21. History of pacemaker placement 22. Chronic anticoagulant use 23. Status post gastric bypass 24. Vent dependent respiratory failure secondary to moderate to severe COPD and sleep apnea, an expected outcome from patient's condition PLAN: 1. All anticoagulants has been discontinued secondary to adverse reaction from Lovenox. 2. Restart metformin for improved glycemic control goal of 150 and under 3. Start bariatric stage II diet bariatric full liquids with protein shakes 4. Patient takes chronic pain meds [place] teds at home also restarted 5. Abdominal binder for support 6. Discharge home tomorrow as hemoglobin stabilizes Objective - Vital Signs Vital signs: Vital Signs Temp 97.8 F 11/11/18 16:45 Pulse 76 11/11/18 15:18 Resp 20 11/11/18 15:52 BP 122/49 11/11/18 15:00 Pulse Ox 94 L 11/11/18 15:00 Intake & Output 11/10/18 11/11/18 11/11/18 18:59 06:59 18:59 Intake Total 1650 1150 3260 Output Total 1575 325 Balance 75 1150 2935 Weight 167.8 kg 167.8 kg Intake: IV 1550 1150 2100 Piperacillin-Tazobactam 3 100 100 200 .375 gm In Sodium Chloride 0.9% 100 ml @ 25 mls/hr IVPB Q8HR [facility] Rx# :[id number] Sodium Chloride 0.9% 1, 1350 1050 1800 000 ml @ 75 mls/hr IV . [id number] [facility] Rx#:[id number] Sodium Ferric Gluconat- 100 100 Sucrose 125 mg In Sodium Chloride 0.9% 100 ml @ 100 mls/hr IVPB DAILY [facility] Rx#:[id number] Intake, IV Titration 100 Amount Piperacillin-Tazobactam 3 100 .375 gm In Sodium Chloride 0.9% 100 ml @ 25 mls/hr IVPB Q8HR [facility] Rx# :[id number] Oral 1160 Output: Urine 1575 325 Other: Voiding Method Indwelling Catheter Toilet Urinal # Voids 3 1 # Bowel Movements 1 - Labs CBC & Chem 7: 11/11/18 11:41 11/11/18 05:28 Labs: Abnormal Lab Results - Last 24 Hours (Table) 11/10/18 11/10/18 11/11/18 Range/Units 19:57 23:36 03:58 WBC (3.8-10.6) k/uL RBC (4.30-5.90) m/uL Hgb (13.0-17.5) gm/dL Hct (39.0-53.0) % RDW (11.5-15.5) % Plt Count (150-450) k/uL Chloride (98-107) mmol/L BUN (9-20) mg/dL Glucose (74-99) mg/dL POC Glucose (mg/dL) 231 H 161 H 194 H (75-99) mg/dL Calcium (8.4-10.2) mg/dL 11/11/18 11/11/18 11/11/18 Range/Units 05:28 05:28 07:08 WBC (3.8-10.6) k/uL RBC 2.54 L (4.30-5.90) m/uL Hgb 7.2 L D (13.0-17.5) gm/dL Hct 21.9 L (39.0-53.0) % RDW 15.8 H (11.5-15.5) % Plt Count 118 L (150-450) k/uL Chloride 108 H (98-107) mmol/L BUN 30 H (9-20) mg/dL Glucose 181 H (74-99) mg/dL POC Glucose (mg/dL) 200 H (75-99) mg/dL Calcium 7.7 L (8.4-10.2) mg/dL 11/11/18 11/11/18 11/11/18 Range/Units 11:41 12:01 16:52 WBC 11.0 H (3.8-10.6) k/uL RBC 2.79 L (4.30-5.90) m/uL Hgb 7.8 L (13.0-17.5) gm/dL Hct 25.2 L (39.0-53.0) % RDW 16.4 H (11.5-15.5) % Plt Count 134 L (150-450) k/uL Chloride (98-107) mmol/L BUN (9-20) mg/dL Glucose (74-99) mg/dL POC Glucose (mg/dL) 167 H 157 H (75-99) mg/dL Calcium (8.4-10.2) mg/dL Microbiology - Last 24 Hours (Table) 10/01/19 04:06 Gram Stain - Final Sputum Sputum Culture - Final Morganella morganii
[2018-11-11] MEDS: metFORMIN 500 MG TAB PO SCH (17:41)
[2018-11-11] MEDS: MONTELUKAST 10 MG TAB PO SCH (20:49)
[2018-11-11 20:53] LABS: Glucose,Whole Blood 152 mg/dL (75-99)
[2018-11-11] MEDS: HYDROcodone/APAP 10-325MG 1 EACH TAB PO PRN (22:41)
[2018-11-12] MEDS: SODIUM CHLORIDE 0.9% 1,000 ML IV SCH (00:04)
[2018-11-12] MEDS: HYDROmorphone 1 MG/ML 1 ML SYRINGE IVP PRN ×2 (05:03→08:21)
[2018-11-12] MEDS: SIMETHICONE 40 MG/0.6 ML DROPS 2,000 MG/30 ML BOTTLE PO SCH ×2 (05:05→12:50)
[2018-11-12 07:05] LABS: Glucose,Whole Blood 137 mg/dL (75-99)
[2018-11-12 07:56] VITALS: RESP 16
[2018-11-12 08:02] LABS: Basophils % (A) 0 %; Eosinophils # (A) 0.1 k/uL (0-0.7); Eosinophils % (A) 1 %; HCT 22.8 % (39.0-53.0); HGB 7.3 gm/dL (13.0-17.5); Hypochromasia Marked; Lymphocytes # (A) 1.8 k/uL (1.0-4.8); Lymphocytes % (A) 24 %; MCH 29.2 pg (25.0-35.0); MCHC 31.8 g/dL (31.0-37.0); MCV 91.8 fL (80.0-100.0); Mean Platelet Volume 6.1; Monocytes # (A) 0.3 k/uL (0-1.0); Monocytes % (A) 4 %; Neutrophils # (A) 5.1 k/uL (1.3-7.7); Neutrophils % (A) 69 %; Platelet Count 115 k/uL (150-450); RBC 2.49 m/uL (4.30-5.90); WBC 7.5 k/uL (3.8-10.6)
[2018-11-12] MEDS: ALBUTEROL NEBULIZED 2.5 MG/3 ML INHALATION SCH ×3 (08:09→15:48)
[2018-11-12] MEDS ORDERED: SODIUM CHLORIDE 0.9% 2,000 ML IV ONE (08:11)
[2018-11-12] MEDS: PANTOPRAZOLE 40 MG/10 ML VIAL IV SCH (08:22)
[2018-11-12] MEDS: metFORMIN 500 MG TAB PO SCH (08:22)
[2018-11-12] MEDS: SOTALOL 80 MG TAB PO SCH (08:22)
[2018-11-12] MEDS: INSULIN ASPART (NovoLOG) 100 UNIT/ML VIAL SQ SCH ×2 (11:07→12:50)
[2018-11-12] MEDS: PIPERACILLIN-TAZOBACTAM 3.375 GM in SODIUM CHLORIDE 0.9% 100 ML IVPB SCH (11:07)
[2018-11-12] MEDS: HYDROcodone/APAP 10-325MG 1 EACH TAB PO PRN (11:07)
[2018-11-12 11:42] LABS: Glucose,Whole Blood 135 mg/dL (75-99)
--- NOTE | 2018-11-12 12:02 | P.PN ---
Subjective Progress Note Date: 11/12/18 CHIEF COMPLAINT: Morbid obesity HISTORY OF PRESENT ILLNESS: The patient is a 57-year-old male postop day 4 status post gastric bypass, 11/08/2018. Overnight, he had no issues. He is ambulating. He is passing flatus. He is tolerating diet. No reports of fatigue. No reports of moderate dyspnea. He feels well. He is eager for discharge. His blood sugars has responded well to metformin with blood sugars under 150. ROS: No reports of nausea and vomiting. Had bowel movements. No fevers or chil ls. No new chest pain. PHYSICAL EXAM: VITAL SIGNS: Reviewed CONSTITUTIONAL: Well developed and in no acute distress. EYES: Conjuctivae without sclera icterus. Extraocular movements grossly intact. HEAD, EARS, NOSE, THROAT: Moist buccal mucosa. Head is atraumatic, normocephalic. Hears conversational speech. No nasal drainage. RESPIRATORY: Non-labored respirations and equal bilateral excursions with BiPAP machine CARDIOVASCULAR: Palpable 2+ radial pulses. ABDOMEN: Incisions clean dry and intact. Dressing along left upper quadrant discontinued. Umbilical hernia reducible identified. MUSCULOSKELETAL: No gross deformity of the lower extremities noted. No clubbing. No cyanosis. SKIN: Good skin turgor. Well perfused. NEUROLOGIC: Cranial nerves I through XII grossly intact. No focal or lateralizing signs. PSYCH: Appropriate affect. Alert and oriented to person, place and time. CLINCAL LABS: White blood cell count improved from 20,000-over 7000 Hemoglobin stable at 7.2-7.3 ASSESSMENT: 1. Morbid obesity due to excess calories 2. Body mass index of 56.4 to 52.4 3. Depressive disorder 4. Congestive heart failure 5. Past pneumonia 6. Obstructive sleep apnea, severe 7. Gastroesophageal reflux disease 8. Stomach ulcers 9. Osteoarthritis bilateral knee 10. Osteoarthritis lower back 11. Osteoarthritis right hip pain 12. Atrial fibrillation 13. Hypertensive heart disease 14. Diabetes type 2, non-insulin dependent 15. Asthma 16. Iron deficiency anemia 17. Hyperlipidemia 18. Chronic obstructive pulmonary disease, moderate 19. Depressive disorder 20. Family history morbid obesity 21. History of pacemaker placement 22. Chronic anticoagulant use 23. Status post gastric bypass 24. Vent dependent respiratory failure secondary to moderate to severe COPD and sleep apnea, an expected outcome from patient's condition 25. Acute blood loss anemia secondary to anticoagulant, expected outcome with blood thinner PLAN: 1. Overall clinically doing well. 2. IV fluid bolus for transient hypertension however asymptomatic 3. Management of diabetes including continue metformin upon discharge advised. 4. Immediate follow-up in the bariatric center in 2-3 days. 5. Medical reconciliation completed. Objective - Vital Signs Vital signs: Vital Signs Temp 97.9 F 11/12/18 07:00 Pulse 75 11/12/18 11:53 Resp 16 11/12/18 07:00 BP 114/67 11/12/18 11:48 Pulse Ox 100 11/12/18 07:00 Intake & Output 11/11/18 11/12/18 11/12/18 18:59 06:59 18:59 Intake Total 3260 Output Total 325 Balance 2935 Weight 167.8 kg Intake: IV 2100 Piperacillin-Tazobactam 3 200 .375 gm In Sodium Chloride 0.9% 100 ml @ 25 mls/hr IVPB Q8HR [facility] Rx# :[id number] Sodium Chloride 0.9% 1, 1800 000 ml @ 75 mls/hr IV . [id number] [facility] Rx#:[id number] Sodium Ferric Gluconat- 100 Sucrose 125 mg In Sodium Chloride 0.9% 100 ml @ 100 mls/hr IVPB DAILY [facility] Rx#:[id number] Oral 1160 Output: Urine 325 Other: Voiding Method Toilet Urinal Urinal # Voids 1 550 # Bowel Movements 1 - Labs CBC & Chem 7: 11/12/18 07:26 11/11/18 05:28 Labs: Abnormal Lab Results - Last 24 Hours (Table) 11/11/18 11/11/18 11/11/18 Range/Units 11:41 12:01 16:52 WBC 11.0 H (3.8-10.6) k/uL RBC 2.79 L (4.30-5.90) m/uL Hgb 7.8 L (13.0-17.5) gm/dL Hct 25.2 L (39.0-53.0) % RDW 16.4 H (11.5-15.5) % Plt Count 134 L (150-450) k/uL POC Glucose (mg/dL) 167 H 157 H (75-99) mg/dL 11/11/18 11/12/18 11/12/18 Range/Units 20:40 06:53 07:26 WBC (3.8-10.6) k/uL RBC 2.49 L (4.30-5.90) m/uL Hgb 7.3 L (13.0-17.5) gm/dL Hct 22.8 L (39.0-53.0) % RDW 16.0 H (11.5-15.5) % Plt Count 115 L (150-450) k/uL POC Glucose (mg/dL) 152 H 137 H (75-99) mg/dL 11/12/18 Range/Units 11:31 WBC (3.8-10.6) k/uL RBC (4.30-5.90) m/uL Hgb (13.0-17.5) gm/dL Hct (39.0-53.0) % RDW (11.5-15.5) % Plt Count (150-450) k/uL POC Glucose (mg/dL) 135 H (75-99) mg/dL Microbiology - Last 24 Hours (Table) 11/09/18 04:06 Gram Stain - Final Sputum Sputum Culture - Final Morganella morganii Assessment and Plan (1) Morbid (severe) obesity due to excess calories Current Visit: Yes Status: Acute Code(s): E66.01 - MORBID (SEVERE) OBESITY DUE TO EXCESS CALORIES SNOMED Code(s): 117249339
--- NOTE | 2018-11-12 13:28 | P.PN ---
Subjective Progress Note Date: 11/12/18 Principal diagnosis: Status post gastric bypass surgery, acute rest or a failure requiring reintubation and mechanical ventilation, recovered, postop day 4 On 11/12/2089 patient seen in follow-up on medical surgical floor. He is awake and alert, in no acute distress, he is on his home BiPAP unit, and his pressures are 20/13, patient denies any acute distress, and he is not on BiPAP he is on room air, and his sats are around 99-100%, no acute events overnight, no fever or chills, patient is tolerating oral diet, he states he was little queasy yesterday, but no nausea, no vomiting, respirations are even and nonlabored, no pulmonary complaints, he is working on his incentive spirometer, he is achieving [id number] on it today, lung sounds are clear to auscultation, and patient has been tolerating ambulation. He is on Zosyn for evidence of Morganella morganii in the sputum cultures Objective - Vital Signs Vital signs: Vital Signs Temp 97.9 F 11/12/18 07:00 Pulse 75 11/12/18 11:53 Resp 16 11/12/18 07:00 BP 114/67 11/12/18 11:48 Pulse Ox 100 11/12/18 07:00 Intake & Output 11/11/18 11/12/18 11/12/18 18:59 06:59 18:59 Intake Total 3260 Output Total 325 Balance 2935 Weight 167.8 kg Intake: IV 2100 Piperacillin-Tazobactam 3 200 .375 gm In Sodium Chloride 0.9% 100 ml @ 25 mls/hr IVPB Q8HR [facility] Rx# :[id number] Sodium Chloride 0.9% 1, 1800 000 ml @ 75 mls/hr IV . [id number] [facility] Rx#:[id number] Sodium Ferric Gluconat- 100 Sucrose 125 mg In Sodium Chloride 0.9% 100 ml @ 100 mls/hr IVPB DAILY [facility] Rx#:[id number] Oral 1160 Output: Urine 325 Other: Voiding Method Toilet Urinal Urinal # Voids 1 550 # Bowel Movements 1 - Exam GENERAL EXAM: Alert, pleasant, 57 y/o obese male on Bipap 20/13, comfortable in no apparent distress. HEAD: Normocephalic/atraumatic. EYES: Normal reaction of pupils, equal size. Conjunctiva pink, sclera white. NOSE: Clear with pink turbinates. THROAT: No erythema or exudates. NECK: No masses, no JVD, no thyroid enlargement, no adenopathy. CHEST: No chest wall deformity. Symmetrical expansion. LUNGS: Equal air entry with no crackles, wheeze, rhonchi or dullness. CVS: Regular rate and rhythm, normal S1 and S2, no gallops, no murmurs, no rubs ABDOMEN: Soft, nontender. No hepatosplenomegaly, normal bowel sounds, no guarding or rigidity. Incisions on abd. cdi EXTREMITIES: No clubbing, no edema, no cyanosis, 2+ pulses and upper and lower extremities. MUSCULOSKELETAL: Muscle strength and tone normal. SPINE: No scoliosis or deformity SKIN: No rashes CENTRAL NERVOUS SYSTEM: Alert and oriented -3. No focal deficits, tone is normal in all 4 extremities. PSYCHIATRIC: Alert and oriented -3. Appropriate affect. Intact judgment and insight. - Labs CBC & Chem 7: 11/12/18 07:26 11/11/18 05:28 Labs: Abnormal Lab Results - Last 24 Hours (Table) 11/11/18 11/11/18 11/12/18 Range/Units 16:52 20:40 06:53 RBC (4.30-5.90) m/uL Hgb (13.0-17.5) gm/dL Hct (39.0-53.0) % RDW (11.5-15.5) % Plt Count (150-450) k/uL POC Glucose (mg/dL) 157 H 152 H 137 H (75-99) mg/dL 11/12/18 11/12/18 Range/Units 07:26 11:31 RBC 2.49 L (4.30-5.90) m/uL Hgb 7.3 L (13.0-17.5) gm/dL Hct 22.8 L (39.0-53.0) % RDW 16.0 H (11.5-15.5) % Plt Count 115 L (150-450) k/uL POC Glucose (mg/dL) 135 H (75-99) mg/dL Microbiology - Last 24 Hours (Table) 11/09/18 04:06 Gram Stain - Final Sputum Sputum Culture - Final Morganella morganii Assessment and Plan Plan: 1 status post laparoscopic gastric bypass surgery, postoperative day #3 2 postoperative hypoxic and hypercapnic respiratory failure requiring intubation and mechanical ventilation, unexpected. However considering the patient's morbid obesity and obstructive sleep apnea, not unusual to develop this episode of postoperative hypoxic and hypercapnic respiratory failure and reintubation post extubation as noted in this patient. 3 morbid obesity 4 obstructive sleep apnea syndrome/severe normally maintained on BiPAP at home and O2 at 4 L at night. 5 multiple comorbidities including chronic atrial fibrillation, hypertension, COPD, GERD, history of peptic ulcer disease, history of nephrolithiasis, and history of degenerative joint disease. Recommendation: Continue incentive spirometry, continue bronchodilators, Continue GI and DVT prophylaxis Continue cardiac meds for his atrial fibrillation Continue bronchodilators for his underlying COPD Continue iron for his anemia secondary to surgery and blood loss from surgery. Plan: Continue encouraging deep breathing and coughing, ambulation. No issues overnight, VS stable, doing well. We will sign off. I performed a history & physical examination of the patient and discussed their management with my nurse practitioner, Sonali Lundy. I reviewed the nurse practitioner's note and agree with the documented findings and plan of care. Lung sounds are positive for clear breaths. The findings and the impression was discussed with the patient. I attest to the documentation by the nurse pamt esdras. Time with Patient: Less than 30
--- NOTE | 2018-11-12 14:23 | P.DS ---
Providers Date of admission: 11/08/18 11:15 Expected date of discharge: 11/12/18 Attending physician: Carley Tyson Consults: 11/08/18 18:15 Consult Physician Urgent Consulting Provider: Maureen Lucero Consult Reason/Comments: ICU Management Do you want consulting provider notified?: Yes 11/08/18 20:41 Consult Physician Routine Consulting Provider: Marta Heaton Consult Reason/Comments: Medical management Do you want consulting provider notified?: Yes 11/08/18 21:29 Consult Physician Routine Consulting Provider: Valdez Garrett Consult Reason/Comments: afib Do you want consulting provider notified?: Already Contacted Primary care physician: Mihaela Sanchez - Catrina Diagnosis(es) (1) Morbid (severe) obesity due to excess calories Current Visit: Yes Status: Acute (2) BMI 50.0-59.9, adult Current Visit: Yes Status: Acute (3) Severe obstructive sleep apnea-hypopnea syndrome Current Visit: Yes Status: Acute (4) S/P gastric bypass Current Visit: Yes Status: Acute (5) Ischemic cardiomyopathy Current Visit: Yes Status: Acute (6) Congestive heart failure with cardiomyopathy Current Visit: Yes Status: Acute (7) Paroxysmal atrial fibrillation Current Visit: Yes Status: Acute (8) Osteoarthritis of both knees Current Visit: Yes Status: Acute (9) Osteoarthritis of hips, bilateral Current Visit: Yes Status: Acute (10) Chronic pain syndrome Current Visit: Yes Status: Acute (11) Chronic anticoagulation Current Visit: Yes Status: Acute (12) Chronic iron deficiency anemia Current Visit: Yes Status: Acute (13) History of pacemaker Current Visit: Yes Status: Acute (14) Hepatomegaly Current Visit: Yes Status: Acute (15) Fatty liver disease, nonalcoholic Current Visit: Yes Status: Acute (16) Diabetes type 2, uncontrolled Current Visit: Yes Status: Acute Hospital Course: POSTOPERATIVE DIAGNOSES: 1. Morbid obesity due to excess calories 2. Body mass index of 56.4 to 52.4 3. Depressive disorder 4. Congestive heart failure 5. Past pneumonia 6. Obstructive sleep apnea, severe 7. Gastroesophageal reflux disease 8. Stomach ulcers 9. Osteoarthritis bilateral knee 10. Osteoarthritis lower back 11. Osteoarthritis right hip pain 12. Atrial fibrillation 13. Hypertensive heart disease 14. Diabetes type 2, non-insulin dependent 15. Asthma 16. Iron deficiency anemia 17. Hyperlipidemia 18. Chronic obstructive pulmonary disease, moderate 19. Depressive disorder 20. Family history morbid obesity 21. History of pacemaker placement 22. Chronic anticoagulant use 23. Hepatomegaly due to fatty liver disease 24. Incarcerated initial umbilical hernia with omentum INDICATIONS: Nima Bowman is a 57-year-old male who comes with lifelong morbid obesity. He has multiple medical co-morbidities including severe COPD, sleep apnea, osteoarthritis, atrial fibrillation, hypertensive heart disease with congestive heart failure. At height of 5 feet 9.5 inches, ideal body weight is 168 pounds. Highest weight is 389 pounds. Body mass index highest was 56.7. Today BMI was 52.4. He comes in 360 pounds unchanged. Lifetime weight l oss of 30 pounds. He is 192 pounds overweight. He underwent robotic gastric bypass where after initial extubation, patient was reintubated. He reports personal history of difficulty with extubation especially with severe chronic obstructive sleep apnea and oxygen use where reintubation is expected with his body habitus and comorbidities. As a result, he was in the ICU. Cardiac including pulmonary consultations were obtained as well as hospitalist. Antibiotics were continued for inherent contamination of the case. Blood sugars were controlled with resumption of metformin. He did have expected bloody bowel movements where anemia is suspected with anticoagulant which was discontinued. Prior to discharge, he was tolerating diet. Iron infusions were given for his chronic iron deficiency anemia. Dietary restrictions were reviewed. Medical reconciliation was completed. Patient was stable prior to discharge. Procedures: OPERATION: 1. Robotic assisted da Jef Xi laparoscopic transgastric Patricia-en-Y gastric bypass, 100 cm antecolic antegastric Patricia limb, with 25 mm Ethicon ILS 2. Intraoperative esophagogastrojejunoscopy. ANESTHESIA: GETA and local ESTIMATED BLOOD LOSS: 10 mL SPECIMENS REMOVED: None. Patient Condition at Discharge: Stable Plan - Discharge Summary Discharge Rx Participant: Yes New Discharge Prescriptions: New Bisacodyl [Dulcolax] 5 mg PO DAILY PRN #10 tablet. PRN Reason: Constipation Simethicone 40 mg/0.6 ml Drops [Mylicon Drops] 40 mg PO PCHS PRN #30 ml PRN Reason: Gas Ondansetron Odt [Zofran Odt] 4 mg PO Q8HR PRN #9 tab PRN Reason: Nausea metFORMIN HCL [Glucophage] 500 mg PO BID-W/MEALS tab Omeprazole 40 mg PO DAILY #30 capsule. Continue HYDROcodone/APAP 10-325MG [[place] 10-325] 1 tab PO Q6HR PRN PRN Reason: Pain Montelukast [Singulair] 10 mg PO HS Sotalol [Betapace] 120 mg PO BID Discontinued Aspirin 81 mg PO DAILY Omeprazole 20 mg PO DAILY PRN PRN Reason: Heartburn Potassium Chloride [K-Tab ER] 10 meq PO DAILY Simvastatin [Zocor] 40 mg PO HS glyBURIDE [Diabeta] 5 mg PO AC-BID Cholecalciferol [Vitamin D3] 5,000 unit PO DAILY Ergocalciferol [Vitamin D2 (DRISDOL)] 50,000 unit PO Q7D #12 cap Cetirizine HCl 10 mg PO DAILY Semaglutide [Ozempic] 1 mg SQ WEEKLY Lisinopril [Zestril] 10 mg PO HS Lisinopril [Zestril] 20 mg PO QAM Empagliflozin [Jardiance] 25 mg PO DAILY Ferrous Sulfate [Iron] 325 mg PO BID Discharge Medication List HYDROcodone/APAP 10-325MG [[place] 10-325] 1 tab PO Q6HR PRN 03/25/18 [History] Montelukast [Singulair] 10 mg PO HS 07/12/18 [History] Sotalol [Betapace] 120 mg PO BID 07/12/18 [History] Bisacodyl [Dulcolax] 5 mg PO DAILY PRN #10 tablet. 11/08/18 [Rx] Ondansetron Odt [Zofran Odt] 4 mg PO Q8HR PRN #9 tab 11/08/18 [Rx] Simethicone 40 mg/0.6 ml Drops [Mylicon Drops] 40 mg PO PCHS PRN #30 ml 11/08/18 [Rx] Omeprazole 40 mg PO DAILY #30 capsule. 11/12/18 [Rx] metFORMIN HCL [Glucophage] 500 mg PO BID-W/MEALS tab 11/12/18 [Rx] [facility]ment(s[facility]Ref[facility] [place] [place] - 11/15/18 10:00 am Patient Instructions/Handouts: Abdominal Binder (DC), Nutrition after Bariatric Surgery (DC), Patricia-en-Y Gastric Bypass (DC) Activity/Diet/Wound Care/Special Instructions: NO lifting over 4 pounds in 4 weeks, December 08. June shower. No bathtub soaks. Dressings to be removed by your doctor in the office. Drink 64 oz of fluid daily. Start protein shakes on . Notify bariatric center for temp over 101.0, increased pain, drainage from incisions. No straws or carbonated beverages. Liquid diet only. Sugar content should be less than 6 g to avoid dumping syndrome. Take MOM for constipation. CRUSH, OPEN, OR CUT TABLETS LARGER THAN A SIZE OF A TIC TAC. Do not take any blood sugar medications for blood sugars under 150 Discharge Disposition: HOME SELF-CARE
[2018-11-12 14:53] VITALS: BP 138/71; PULSE 96; TEMP 97.5
[2018-11-12] MEDS ORDERED: diphenhydrAMINE 50 MG/ML 1 ML VIAL IVP PRN (15:01)
--- NOTE | 2018-11-16 11:20 | CDI ---
Documentation Clarification Form Date: 11/16/2018 11:03:51 AM From: NUBIA [place]; Pari Jasso, It Infrastructure Specialist Phone: If you have any questions about this query, please contact Pari Jasso at [phone] between 8 am and 5 pm. Admit Date: 11/08/2018 11:15:00 AM Patient Name: Nima Bowman Visit Number: [id number] Discharge Date: 11/12/2018 4:24:00 PM ATTENTION: The Clinical Documentation Specialists (CDI) and [facility] Coding Staff appreciate your assistance in clarifying documentation. Please respond to the clarification below the line at the bottom and electronically sign. The CDI & [facility] Coding staff will review the response and follow-up if needed. Please note: Queries are made part of the Legal Health Record. If you have any questions, please contact the author of this message via ITS. Dr. Carley Tyson The patient has documented uncontrolled diabetes, as indicated on the discharge summary. History/Risk Factors: Morbid obesity, DM, CHF, HTN, CAD - status post gastric bypass. Clinical Indicators: Blood glucose range during admission from 121 to highest of 258. In order to capture the severity of Illness and necessary documentation for coding specificity, please clarify: DM type 2 uncontrolled with hyperglycemia DM Type 2 uncontrolled with hypoglycemia Other, please specify Unable to Determine DM type 2 uncontrolled with hyperglycemia [facility]17/[address] [facility]
== END 2018-11-12 16:24 | disposition home or self-care (01) | DRG 619 ==
LOC: 2ORMAIN 11:15 → 4SSUR 17:23 → 2SICU 18:31 → 4SSUR 11-11 21:05
PROVIDERS: ADMIT Surgery Plastic and Reconstructive Surgery; ATTEND Surgery Plastic and Reconstructive Surgery
PROC: 8E0W4CZ Robotic Assisted Procedure of Trunk Region, Percutaneous Endoscopic Approach (ICD-10-PCS; 2018-11-08)
PROC: 0D164ZA Bypass Stomach to Jejunum, Percutaneous Endoscopic Approach (ICD-10-PCS; principal; 2018-11-08 13:10)
DX: E66.01 Morbid (severe) obesity due to excess calories (principal); J96.02 Acute respiratory failure with hypercapnia; J96.01 Acute respiratory failure with hypoxia; D62 Acute posthemorrhagic anemia; I50.32 Chronic diastolic (congestive) heart failure; J98.11 Atelectasis; K42.0 Umbilical hernia with obstruction, without gangrene; I48.20 Chronic atrial fibrillation, unspecified; Z68.43 Body mass index [BMI] 50.0-59.9, adult; K25.9 Gastric ulcer, unspecified as acute or chronic, without hemorrhage or perforation; D72.829 Elevated white blood cell count, unspecified; E78.5 Hyperlipidemia, unspecified; F32.9 Major depressive disorder, single episode, unspecified; G47.33 Obstructive sleep apnea (adult) (pediatric); G89.4 Chronic pain syndrome; I11.0 Hypertensive heart disease with heart failure; I25.5 Ischemic cardiomyopathy; I27.20 Pulmonary hypertension, unspecified; I48.0 Paroxysmal atrial fibrillation; J43.9 Emphysema, unspecified; K21.9 Gastro-esophageal reflux disease without esophagitis; E11.65 Type 2 diabetes mellitus with hyperglycemia; K76.0 Fatty (change of) liver, not elsewhere classified; M16.0 Bilateral primary osteoarthritis of hip; M17.0 Bilateral primary osteoarthritis of knee; M47.9 Spondylosis, unspecified; Z79.01 Long term (current) use of anticoagulants; Z79.82 Long term (current) use of aspirin; Z79.84 Long term (current) use of oral hypoglycemic drugs; Z79.899 Other long term (current) drug therapy; Z80.3 Family history of malignant neoplasm of breast; Z82.0 Family history of epilepsy and other diseases of the nervous system; Z82.49 Family history of ischemic heart disease and other diseases of the circulatory system; Z86.010 Personal history of colon polyps; Z87.01 Personal history of pneumonia (recurrent); Z87.11 Personal history of peptic ulcer disease; Z87.19 Personal history of other diseases of the digestive system; Z87.442 Personal history of urinary calculi; Z87.891 Personal history of nicotine dependence; Z95.0 Presence of cardiac pacemaker; Z99.81 Dependence on supplemental oxygen
CPT/HCPCS: 36415; 36600; 71045; 80048; 81001; 82805; 83605; 83735; 84100; 85025; 85027; 85610; 85730; 86850; 86900; 86901; 87070; 87077; 87186; 87205; 94002; 94003; 94640; 94660; 94760

== ENCOUNTER → 2018-11-15 | Outpatient (CLI) | payer MEDICARE, OTHER ==
[2018-11-15 11:57] VITALS: BP 161/86; PULSE 75; RESP 16; TEMP 98.7; BMI 52.5
--- NOTE | 2018-11-15 17:12 | P.PN ---
Progress Note - Text Progress Note Date: 11/15/18 Nurse visit. Please see nurse's note
== END ==
LOC: BARWHC3 11:08
PROVIDERS: ATTEND Surgery Plastic and Reconstructive Surgery
DX: Z48.815 Encounter for surgical aftercare following surgery on the digestive system (principal); Z98.84 Bariatric surgery status; Z79.899 Other long term (current) drug therapy; Z87.891 Personal history of nicotine dependence
CPT/HCPCS: 99211

== ENCOUNTER → 2018-11-17 | Outpatient (CLI) | payer MEDICARE, OTHER ==
[2018-11-17 13:41] VITALS: BP 149/89; PULSE 67; RESP 16; TEMP 97.6; BMI 51.8
--- NOTE | 2018-11-17 13:54 | P.PN ---
Subjective Progress Note Date: 11/17/18 He is doing well. He has been started on Nuerontin. He reports constipation with Gibson. He is ambulating without a walker. He has left troubles breathing. He has chronic back pain and may need surgery in the future. He needs adjustment of his CPAP. ABDOMEN: Incarcerated umbilical hernia. No infection. PLAN: 1. Adjust pain medications with Neurontin per PCP 2. Careful adjustment of CPAP 3. Increase protein intake to 70 to 80 g protein Objective - Vital Signs Vital signs: Vital Signs Temp 97.6 F 11/17/18 13:37 Pulse 67 11/17/18 13:37 Resp 16 11/17/18 13:37 BP 149/89 11/17/18 13:37 Pulse Ox Intake & Output 11/16/18 11/17/18 11/17/18 18:59 06:59 18:59 Weight 161.479 kg
== END ==
LOC: BARWHC3 12:54
PROVIDERS: ATTEND Surgery Plastic and Reconstructive Surgery
DX: E11.9 Type 2 diabetes mellitus without complications (principal); E66.01 Morbid (severe) obesity due to excess calories; K59.00 Constipation, unspecified; G89.29 Other chronic pain; M54.5 Low back pain; K42.9 Umbilical hernia without obstruction or gangrene
CPT/HCPCS: 97803; G0463; 99211

== ENCOUNTER → 2018-12-08 | Outpatient (CLI) | payer MEDICARE, OTHER ==
[2018-12-08 13:10] VITALS: BP 142/76; PULSE 70; TEMP 98; BMI 48.4
--- NOTE | 2018-12-08 13:42 | P.PN ---
Subjective Progress Note Date: 12/08/18 He feels well. Lost 30 pounds. He has more shoulder pain along the left side. No troubles with breathing. He is off oxygen and CPAP! He feels well. He is concerned about left shoulder pain and is getting better. He reports his pain was along the bilateral shoulders and left arm and shoulder. He has past history of left shoulder pain as well requiring shots. MVI for medications. He is started on Eliquis. Weight loss of 90 pounds by Feb 08 Recommend evaluation with orthopedic doctor. Recommend bariatric labs. Objective - Vital Signs Vital signs: Vital Signs Temp 98 F 12/08/18 13:05 Pulse 70 12/08/18 13:05 Resp BP 142/76 12/08/18 13:05 Pulse Ox Intake & Output 12/07/18 12/08/18 12/08/18 18:59 06:59 18:59 Weight 151.046 kg
[2018-12-08 14:42] LABS: HCT 33.5 % (39.0-53.0); HGB 10.1 gm/dL (13.0-17.5); Hypochromasia Marked; MCH 26.5 pg (25.0-35.0); MCV 88.4 fL (80.0-100.0); Mean Platelet Volume 7.2; Platelet Count 156 k/uL (150-450); Poikilocytosis Moderate; RDW 15.3 % (11.5-15.5); WBC 6.7 k/uL (3.8-10.6)
[2018-12-08 14:43] LABS: INR 1.1 (<1.2); Partial Thromboplastin Time 30.3 sec (22.0-30.0); Prothrombin Time 11.4 sec (9.0-12.0)
[2018-12-08 20:35] LABS: Hemoglobin A1C 5.4 % (4.0-6.0)
[2018-12-08 21:25] LABS: Ferritin 25.2 ng/mL (22.0-322.0)
[2018-12-08 21:40] LABS: % Iron Saturation 7.58 (15.00-50.00); African American GFR (CKD) 97.1 (60.0-200.0); Albumin 4.8 g/dL (3.80-4.90); Albumin/Globulin Ratio 2.4 (1.60-3.17); Anion Gap 11.5 mmol/L (4.00-12.00); Calcium 9.5 mg/dL (8.7-10.3); Carbon Dioxide 21.5 mmol/L (21.6-31.8); Chol/HDL Ratio 6.41; Folate, Serum 10.5 ng/mL; Magnesium 1.7 mg/dL (1.5-2.4); Phosphorus 3.1 mg/dL (2.4-5.1); Potassium 4.4 mmol/L (3.5-5.5); Total Bilirubin 1.1 mg/dL (0.3-1.2); Total Protein 6.8 g/dL (6.2-8.2)
[2018-12-09 12:02] LABS: Zinc, Serum 69 ug/dL (60-130)
== END ==
LOC: BARWHC3 12:49
PROVIDERS: ATTEND Surgery Plastic and Reconstructive Surgery
DX: M25.512 Pain in left shoulder (principal); E66.01 Morbid (severe) obesity due to excess calories; E21.1 Secondary hyperparathyroidism, not elsewhere classified; E89.1 Postprocedural hypoinsulinemia; D50.9 Iron deficiency anemia, unspecified; E44.0 Moderate protein-calorie malnutrition; E55.9 Vitamin D deficiency, unspecified; K74.1 Hepatic sclerosis; N19 Unspecified kidney failure; K50.90 Crohn's disease, unspecified, without complications
CPT/HCPCS: 84255; 84134; 84425; 80061; 80053; 82607; 82728; 82525; 82746; 83540; 83550; 83735; 84100; 84443; 84590; 84630; 85027; 85610; 85730; 82306; 83970; 83036; 97803; 36415; G0463; 99211

== ENCOUNTER → 2019-03-09 | Outpatient (CLI) | payer MEDICARE, OTHER ==
[2019-03-09 15:52] VITALS: BP 130/82; PULSE 75; RESP 16; TEMP 97.9; BMI 45.8
--- NOTE | 2019-03-09 16:12 | P.PN ---
Subjective Progress Note Date: 03/09/19 DATE OF SERVICE: 03/09/2019 CHIEF COMPLAINT: Morbid obesity HISTORY OF PRESENT ILLNESS: Nima Bowman is a 58-year-old male status post gastric bypass, 11/08/2018. He is 4 months out. His protein intake is 90 grams daily. He reports eating dinner chicken tenders. He has no dysphagia. He denies gastroesophageal reflux disease. No reports of abdominal pain. At height of 5 feet 9.5 inches, ideal body weight is 168 pounds. Highest weight is 389 pounds. Body mass index highest was 56.7. He comes in 314 pounds from 332 pounds, 3 months ago. He has lost 18 pounds in 3 months. Lifetime weight loss of 75 pounds. Percent lifetime excess weight loss is 34 %. PHYSICAL EXAM: VITAL SIGNS: Height 5 foot 9.5 inches, weight 314 pounds. BMI 45.8 Vital Signs Temp 97.9 F 03/09/19 15:50 Pulse 75 03/09/19 15:50 Resp 16 03/09/19 15:50 BP 130/82 03/09/19 15:50 Pulse Ox GENERAL: Well-developed in no acute distress. HEENT: No scleral icterus. Extraocular movements grossly intact. Hears conversational speech. No nasal drainage. NECK: Supple without lymphadenopathy. CHEST: Nonlabored respirations with equal bilateral excursions. CARDIOVASCULAR: Irregular rate and irregular rhythm. Distal 2+ pulses. ABDOMEN: Incarcerated umbilical hernia. No infection. MUSCULOSKELETAL: No clubbing, cyanosis. NEURO: No focal or lateralizing signs. Cranial nerves 2 through 12 grossly within normal limits. PSYCH: Appropriate affect. Alert and oriented to person, place and time. SKIN: Good skin turgor. Well perfused. ASSESSMENT: 1. Morbid obesity due to excess calories 2. Body mass index of 56.4 to 45.8 3. Depressive disorder 4. Congestive heart failure 5. Past pneumonia 6. Obstructive sleep apnea, severe 7. Gastroesophageal reflux disease 8. Stomach ulcers 9. Osteoarthritis bilateral knee 10. Osteoarthritis lower back 11. Osteoarthritis right hip pain 12. Atrial fibrillation 13. Hypertensive heart disease 14. Diabetes type 2, non-insulin dependent 15. Asthma 16. Iron deficiency anemia 17. Hyperlipidemia 18. Chronic obstructive pulmonary disease, moderate 19. Depressive disorder 20. Family history morbid obesity 21. History of pacemaker placement 22. Chronic anticoagulant use 23. Status post gastric bypass PLAN: 1. Recommend bariatric labs for 3 months post op 2. Dietary surveillance advised for inadequate loss 3. Follow up at 6 months. Laboratory Last Values WBC 8.1 k/uL (3.8-10.6) 03/09/19 17:14 RBC 5.08 m/uL (4.30-5.90) 03/09/19 17:14 Hgb 13.1 gm/dL (13.0-17.5) 03/09/19 17:14 Hct 42.4 % (39.0-53.0) 03/09/19 17:14 MCV 83.5 fL (80.0-100.0) 03/09/19 17:14 MCH 25.7 pg (25.0-35.0) 03/09/19 17:14 MCHC 30.8 g/dL (31.0-37.0) L 03/09/19 17:14 RDW 15.9 % (11.5-15.5) H 03/09/19 17:14 Plt Count 124 k/uL (150-450) L 03/09/19 17:14 Hypochromasia Marked 03/09/19 17:14 PT 10.9 sec (9.0-12.0) 03/09/19 17:14 INR 1.1 (<1.2) 03/09/19 17:14 APTT 30.4 sec (22.0-30.0) H 03/09/19 17:14 Sodium 138 mmol/L (135-145) 03/09/19 17:14 Potassium 4.4 mmol/L (3.5-5.5) 03/09/19 17:14 Chloride 105 mmol/L (96-109) 03/09/19 17:14 Carbon Dioxide 23.3 mmol/L (21.6-31.8) 03/09/19 17:14 Anion Gap 9.70 mmol/L (4.00-12.00) 03/09/19 17:14 BUN 13.0 mg/dL (9.0-27.0) 03/09/19 17:14 Creatinine 1.1 mg/dL (0.6-1.5) 03/09/19 17:14 Est GFR (CKD-EPI)AfAm 85.9 (60.0-200.0) 03/09/19 17:14 Est GFR (CKD-EPI)NonAf 74.1 (60.0-200.0) 03/09/19 17:14 BUN/Creatinine Ratio 11.82 Ratio (12.00-20.00) L 03/09/19 17:14 Glucose 100 mg/dL (70-110) 03/09/19 17:[address] Glu mg/dL 128 03/09/19 17:14 Hemoglobin A1c 6.1 % (4.0-6.0) H 03/09/19 17:14 Calcium 9.1 mg/dL (8.7-10.3) 03/09/19 17:14 Phosphorus 3.4 mg/dL (2.4-5.1) 03/09/19 17:14 Magnesium 1.7 mg/dL (1.5-2.4) 03/09/19 17:14 Iron 35 ug/dL (65-175) L 03/09/19 17:14 TIBC 308 ug/dL (228-460) 03/09/19 17:14 % Saturation 11.36 (15.00-50.00) L 03/09/19 17:14 Ferritin 26.8 ng/mL (22.0-322.0) 03/09/19 17:14 Total Bilirubin 0.7 mg/dL (0.3-1.2) 03/09/19 17:14 AST 26 U/L (14-35) 03/09/19 17:14 ALT 24 U/L (10-49) 03/09/19 17:14 Alkaline Phosphatase 104 U/L (41-126) 03/09/19 17:14 Total Protein 6.5 g/dL (6.2-8.2) 03/09/19 17:14 Albumin 4.60 g/dL (3.80-4.90) 03/09/19 17:14 Globulin 1.9 g/dL (1.6-3.3) 03/09/19 17:14 Albumin/Globulin Ratio 2.42 g/dL (1.60-3.17) 03/09/19 17:14 Prealbumin 18.0 mg/dL (18.0-42.0) 03/09/19 17:14 Triglycerides 201.0 mg/dL (0.0-149.0) H 03/09/19 17:14 Cholesterol 189 mg/dL (0-200) 03/09/19 17:14 LDL Cholesterol, Calc 114.8 mg/dL (0.0-131.0) 03/09/19 17:14 VLDL Cholesterol, Calc 40.20 mg/dL (5.00-40.00) H 03/09/19 17:14 HDL Cholesterol 34.0 mg/dL (40.0-60.0) L 03/09/19 17:14 Cholesterol/HDL Ratio 5.56 03/09/19 17:14 Vitamin A 53 ug/dL (38-106) 03/09/19 17:14 Vitamin B1 42 ug/L (38-122) 03/09/19 17:14 Vitamin B12 922.0 pg/mL (200.0-944.0) 03/09/19 17:14 Vitamin D 25-Hydroxy 37.5 ng/mL (30.0-100.0) 03/09/19 17:14 Folate 16.2 ng/mL 03/09/19 17:14 TSH 3.940 uIU/mL (0.350-5.500) 03/09/19 17:14 PTH Intact 40.3 pg/mL (14.0-72.0) 03/09/19 17:14 Copper 1280 ug/L (665-1480) 03/09/19 17:14 Selenium 96 mcg/L (63-160) 03/09/19 17:14 Zinc 56 ug/dL (60-130) L 03/09/19 17:14 Hgb A1c 6.1%, Platelets are low, iron is low, Zinc is low Objective - Vital Signs Vital signs: Vital Signs Temp 97.9 F 03/09/19 15:50 Pulse 75 03/09/19 15:50 Resp 16 03/09/19 15:50 BP 130/82 03/09/19 15:50 Pulse Ox Intake & Output 03/08/19 03/09/19 03/09/19 18:59 06:59 18:59 Weight 142.882 kg - Labs CBC & Chem 7: 03/09/19 17:14 03/09/19 17:14
[2019-03-09 17:42] LABS: HCT 42.4 % (39.0-53.0); HGB 13.1 gm/dL (13.0-17.5); Hypochromasia Marked; MCH 25.7 pg (25.0-35.0); MCHC 30.8 g/dL (31.0-37.0); MCV 83.5 fL (80.0-100.0); Mean Platelet Volume 7.8; Platelet Count 124 k/uL (150-450); RBC 5.08 m/uL (4.30-5.90); RDW 15.9 % (11.5-15.5); WBC 8.1 k/uL (3.8-10.6)
[2019-03-09 17:55] LABS: INR 1.1 (<1.2); Partial Thromboplastin Time 30.4 sec (22.0-30.0); Prothrombin Time 10.9 sec (9.0-12.0)
[2019-03-10 01:08] LABS: % Iron Saturation 11.36 (15.00-50.00); African American GFR (CKD) 85.9 (60.0-200.0); Albumin 4.6 g/dL (3.80-4.90); Albumin/Globulin Ratio 2.42 (1.60-3.17); Anion Gap 9.7 mmol/L (4.00-12.00); BUN/Creat Ratio 11.82 Ratio (12.00-20.00); Calcium 9.1 mg/dL (8.7-10.3); Carbon Dioxide 23.3 mmol/L (21.6-31.8); Chol/HDL Ratio 5.56; Globulin 1.9 g/dL (1.6-3.3); LDL Cholesterol,Calculated 114.8 mg/dL (0.0-131.0); Magnesium 1.7 mg/dL (1.5-2.4); Non-African American GFR(CKD) 74.1 (60.0-200.0); Phosphorus 3.4 mg/dL (2.4-5.1); Potassium 4.4 mmol/L (3.5-5.5); Total Bilirubin 0.7 mg/dL (0.3-1.2); Total Protein 6.5 g/dL (6.2-8.2); VLDL Calculation 40.2 mg/dL (5.00-40.00)
[2019-03-10 01:16] LABS: Ferritin 26.8 ng/mL (22.0-322.0)
[2019-03-10 01:35] LABS: Folate, Serum 16.2 ng/mL
[2019-03-10 01:43] LABS: Hemoglobin A1C 6.1 % (4.0-6.0)
[2019-03-10 14:01] LABS: Zinc, Serum 56 ug/dL (60-130)
[2019-03-11 07:09] LABS: Vitamin A 53 ug/dL (38-106)
[2019-03-11 22:29] LABS: Selenium 96 mcg/L (63-160)
[2019-03-12 12:21] LABS: Vit B1(Thiamine) 42 ug/L (38-122)
== END | disposition home or self-care (01) ==
LOC: BARWHC3 14:45
PROVIDERS: ATTEND Surgery Plastic and Reconstructive Surgery
DX: E66.01 Morbid (severe) obesity due to excess calories (principal); Z68.42 Body mass index [BMI] 45.0-49.9, adult; F32.9 Major depressive disorder, single episode, unspecified; G47.33 Obstructive sleep apnea (adult) (pediatric); K21.9 Gastro-esophageal reflux disease without esophagitis; K25.9 Gastric ulcer, unspecified as acute or chronic, without hemorrhage or perforation; M17.0 Bilateral primary osteoarthritis of knee; M47.816 Spondylosis without myelopathy or radiculopathy, lumbar region; M16.11 Unilateral primary osteoarthritis, right hip; I48.91 Unspecified atrial fibrillation; I11.0 Hypertensive heart disease with heart failure; E11.9 Type 2 diabetes mellitus without complications; D50.9 Iron deficiency anemia, unspecified; E78.5 Hyperlipidemia, unspecified; J44.9 Chronic obstructive pulmonary disease, unspecified; E21.1 Secondary hyperparathyroidism, not elsewhere classified; E89.1 Postprocedural hypoinsulinemia; K90.9 Intestinal malabsorption, unspecified; E55.9 Vitamin D deficiency, unspecified; K74.1 Hepatic sclerosis; K50.90 Crohn's disease, unspecified, without complications; N19 Unspecified kidney failure; Z83.49 Family history of other endocrine, nutritional and metabolic diseases; Z87.01 Personal history of pneumonia (recurrent); Z95.0 Presence of cardiac pacemaker; Z98.84 Bariatric surgery status; Z79.01 Long term (current) use of anticoagulants
CPT/HCPCS: 84255; 84134; 84425; 80061; 80053; 82607; 82728; 82525; 82746; 83540; 83550; 83735; 84100; 84443; 84590; 84630; 85027; 85610; 85730; 82306; 83970; 83036; 97803; G0463; 99211

== ENCOUNTER → 2019-05-25 | Outpatient (CLI) | payer MEDICARE, OTHER ==
[2019-05-25 13:08] VITALS: BP 133/89; PULSE 61; RESP 16; TEMP 97.7; BMI 45.7
--- NOTE | 2019-05-25 13:43 | P.PN ---
Subjective Progress Note Date: 05/25/19 DATE OF SERVICE: 05/25/2019 CHIEF COMPLAINT: Status post gastric bypass HISTORY OF PRESENT ILLNESS: Nima Bowman is a 58-year-old male status post gastric bypass, 11/08/2018. He is 6 months out. He denies gastroesophageal reflux disease. No troubles. He is concerned about COVID-19 but denies any symptoms. He reports pre-existing iron deficiency anemia including family history of iron deficiency anemia. He also reports family history of iron deficiency. No abdominal pain. He confirms recent colonoscopy with polypectomy less than 2 years ago. At height of 5 feet 9.5 inches, ideal body weight is 168 pounds. Highest weight is 389 pounds. Body mass index highest was 56.7. He comes in 313 pounds from 314 pounds, 3 months ago. He has lost 1 pound in 3 months. Lifetime weight loss of 76 pounds. Percent lifetime excess weight loss is 34 %. PHYSICAL EXAM: VITAL SIGNS: Height 5 foot 9.5 inches, weight 313 pounds. BMI 45.7 Vital Signs Temp 97.7 F 05/25/19 13:07 Pulse 61 05/25/19 13:07 Resp 16 05/25/19 13:07 BP 133/89 05/25/19 13:07 Pulse Ox Intake & Output 05/25/19 05/26/19 05/26/19 18:59 06:59 18:59 Weight 142.428 kg GENERAL: Well-developed in no acute distress. HEENT: No scleral icterus. Extraocular movements grossly intact. Hears convers ational speech. No nasal drainage. NECK: Supple without lymphadenopathy. CHEST: Nonlabored respirations with equal bilateral excursions. CARDIOVASCULAR: Irregular rate and irregular rhythm. Distal 2+ pulses. ABDOMEN: Incarcerated umbilical hernia. No infection. MUSCULOSKELETAL: No clubbing, cyanosis. NEURO: No focal or lateralizing signs. Cranial nerves 2 through 12 grossly within normal limits. PSYCH: Appropriate affect. Alert and oriented to person, place and time. SKIN: Good skin turgor. Well perfused. LABS: Bariatric labs reviewed with Hgb low. Iron is low. ASSESSMENT: 1. Morbid obesity due to excess calories 2. Body mass index of 56.4 to 45.7 3. Depressive disorder 4. Congestive heart failure 5. Past pneumonia 6. Obstructive sleep apnea, severe 7. Gastroesophageal reflux disease 8. Stomach ulcers 9. Osteoarthritis bilateral knee 10. Osteoarthritis lower back 11. Osteoarthritis right hip pain 12. Atrial fibrillation 13. Hypertensive heart disease 14. Diabetes type 2, non-insulin dependent 15. Asthma 16. Iron deficiency anemia 17. Hyperlipidemia 18. Chronic obstructive pulmonary disease, moderate 19. Depressive disorder 20. Family history morbid obesity 21. History of pacemaker placement 22. Chronic anticoagulant use 23. Status post gastric bypass PLAN: 1. Recommend bariatric labs at 6 months. 2. May benefit from alternative for chronic anticoagulation for chronic anemia and iron deficiency such as Watchmen procedure for atrial fibrillation Objective - Vital Signs Vital signs: Vital Signs Temp 97.7 F 05/25/19 13:07 Pulse 61 05/25/19 13:07 Resp 16 05/25/19 13:07 BP 133/89 05/25/19 13:07 Pulse Ox Intake & Output 05/24/19 05/25/19 05/25/19 18:59 06:59 18:59 Weight 142.428 kg
== END | disposition home or self-care (01) ==
LOC: BARWHC3 12:53
PROVIDERS: ATTEND Surgery Plastic and Reconstructive Surgery
DX: Z48.815 Encounter for surgical aftercare following surgery on the digestive system (principal); E66.01 Morbid (severe) obesity due to excess calories; G47.33 Obstructive sleep apnea (adult) (pediatric); K21.9 Gastro-esophageal reflux disease without esophagitis; K25.9 Gastric ulcer, unspecified as acute or chronic, without hemorrhage or perforation; M17.0 Bilateral primary osteoarthritis of knee; M16.11 Unilateral primary osteoarthritis, right hip; I48.91 Unspecified atrial fibrillation; I11.0 Hypertensive heart disease with heart failure; I50.9 Heart failure, unspecified; E11.9 Type 2 diabetes mellitus without complications; D50.9 Iron deficiency anemia, unspecified; J44.9 Chronic obstructive pulmonary disease, unspecified; E78.5 Hyperlipidemia, unspecified; Z68.42 Body mass index [BMI] 45.0-49.9, adult; Z98.84 Bariatric surgery status; Z95.0 Presence of cardiac pacemaker; Z87.01 Personal history of pneumonia (recurrent); Z83.49 Family history of other endocrine, nutritional and metabolic diseases; Z79.01 Long term (current) use of anticoagulants
CPT/HCPCS: 97803; G0463; 99211

== ENCOUNTER → 2019-08-24 | Outpatient (CLI) | payer MEDICARE, OTHER ==
--- NOTE | 2019-08-24 13:26 | P.PN ---
Subjective Progress Note Date: 08/24/19 He reports weight loss. He is back on blood thinners and no changes in medications. He denies any symptoms. 9 month visit. Labs reviewed.
[2019-08-24 13:27] VITALS: BMI 44.2
[2019-08-24 14:35] LABS: Anisocytosis Slight; HCT 49.8 % (39.0-53.0); HGB 15.5 gm/dL (13.0-17.5); Hypochromasia Slight; MCH 27.2 pg (25.0-35.0); MCHC 31.1 g/dL (31.0-37.0); MCV 87.4 fL (80.0-100.0); Mean Platelet Volume 7.6; Platelet Count 131 k/uL (150-450); RDW 16.5 % (11.5-15.5); WBC 8.2 k/uL (3.8-10.6)
[2019-08-25 00:54] LABS: ALT 23 U/L (10-49); AST 27 U/L (14-35); African American GFR (CKD) 96.4 (60.0-200.0); Albumin/Globulin Ratio 2.05 (1.60-3.17); Alkaline Phosphatase 102 U/L (41-126); Calcium 9.3 mg/dL (8.7-10.3); Carbon Dioxide 21.1 mmol/L (21.6-31.8); Chloride 109 mmol/L (96-109); Chol/HDL Ratio 6.12; Cholesterol 202 mg/dL (0-200); Globulin 2.2 g/dL (1.6-3.3); Glucose 86 mg/dL (70-110); Iron 61 ug/dL (65-175); Non-African American GFR(CKD) 83.2 (60.0-200.0); Phosphorus 3.3 mg/dL (2.4-5.1); Potassium 3.9 mmol/L (3.5-5.5); Sodium 140 mmol/L (135-145); Total Bilirubin 1.4 mg/dL (0.3-1.2); Total Iron Binding Capacity 316 ug/dL (228-460); Total Protein 6.7 g/dL (6.2-8.2)
[2019-08-25 01:03] LABS: Ferritin 53.2 ng/mL (22.0-322.0)
[2019-08-25 01:06] LABS: Folate, Serum >24.0 ng/mL
[2019-08-25 05:10] LABS: Hemoglobin A1C 6.2 % (4.0-6.0)
[2019-08-25 15:17] LABS: Zinc, Serum 59 ug/dL (60-130)
[2019-08-26 06:53] LABS: Vit B1(Thiamine) 60 ug/L (38-122)
[2019-08-26 07:07] LABS: Vitamin A 54 ug/dL (38-106)
[2019-08-26 09:32] VITALS: BP 137/78; PULSE 61; TEMP 97.7
[2019-08-31 15:05] LABS: Selenium 108 mcg/L (63-160)
== END | disposition home or self-care (01) ==
LOC: BARWHC3 12:44
PROVIDERS: ATTEND Surgery Plastic and Reconstructive Surgery
DX: E21.1 Secondary hyperparathyroidism, not elsewhere classified (principal); D50.9 Iron deficiency anemia, unspecified; E44.0 Moderate protein-calorie malnutrition; E55.9 Vitamin D deficiency, unspecified; K74.1 Hepatic sclerosis; N19 Unspecified kidney failure; K50.90 Crohn's disease, unspecified, without complications
CPT/HCPCS: 84255; 84134; 84425; 80061; 80053; 82607; 82728; 82525; 82746; 83540; 83550; 83735; 84100; 84443; 84590; 84630; 85027; 82306; 83970; 83036; 97803; 36415; G0463; 99211

== ENCOUNTER → 2020-05-11 | Outpatient (CLI) | payer MEDICARE, OTHER ==
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
== END | disposition home or self-care (01) ==
LOC: RADCTMAIN 07:42
PROVIDERS: ATTEND Orthopaedic Surgery Orthopaedic Surgery of the Spine
DX: S12.690D Other displaced fracture of seventh cervical vertebra, subsequent encounter for fracture with routine healing (principal)
CPT/HCPCS: 72125

== ENCOUNTER → 2022-04-30 | Outpatient (CLI) | payer MEDICARE, OTHER ==
[2022-04-30 13:25] VITALS: BP 137/83; PULSE 64; TEMP 98.7; BMI 44.4
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
== END ==
LOC: BARWHC3 12:50
PROVIDERS: ATTEND Surgery Plastic and Reconstructive Surgery
DX: E66.01 Morbid (severe) obesity due to excess calories (principal); I48.91 Unspecified atrial fibrillation; I50.9 Heart failure, unspecified; J44.9 Chronic obstructive pulmonary disease, unspecified; E11.9 Type 2 diabetes mellitus without complications; K21.9 Gastro-esophageal reflux disease without esophagitis; E78.5 Hyperlipidemia, unspecified; I10 Essential (primary) hypertension; M19.90 Unspecified osteoarthritis, unspecified site; Z87.891 Personal history of nicotine dependence; Z68.41 Body mass index [BMI] 40.0-44.9, adult; Z88.8 Allergy status to other drugs, medicaments and biological substances
CPT/HCPCS: 99211

== ENCOUNTER 2022-06-23 09:47 | Day surgery (SDC) | payer MEDICARE, OTHER ==
[2022-06-19 09:35] VITALS: BMI 41.1
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
[~2022-06-23 09:47] MED LIST changes: -ACETAMINOPHEN IV (For NPO) 1,000 MG in EMPTY BAG 1 BAG IVPB ONE; +ACETAMINOPHEN TAB 500 MG TAB PO STA; -CHLORHEXIDINE GLUCONATE 15 ML CUP MUCOUS MEM ONE; -ENOXAPARIN 40 MG/0.4 ML SYRINGE SQ STA; +GABAPENTIN 300 MG CAP PO STA; +HEPARIN SODIUM,PORCINE/PF 5,000 UNIT/0.5 ML SYRINGE SQ PRN; -PANTOPRAZOLE 40 MG/10 ML VIAL IV STA; +TAMSULOSIN 0.4 MG CAP.ER.24H PO STA; -ceFAZolin 3 GM in SODIUM CHLORIDE 0.9% 100 ML IVPB ONE; +ceFAZolin 3 GM in SODIUM CHLORIDE 0.9% 100 ML IVPB PRN
[2022-06-23] MEDS ORDERED: LACTATED RINGERS 1,000 ML IV ONE ×2 (10:45→12:51)
[2022-06-23] MEDS ORDERED: LIDOCAINE 1% (10MG/ML) FOR IV START INTRADERMA ONE (10:45)
[2022-06-23 10:54] LABS: Glucose,Whole Blood 115 mg/dL (70-110)
[2022-06-23] MEDS ORDERED: ONDANSETRON 4 MG/2 ML VIAL ONE (11:03)
[2022-06-23] MEDS ORDERED: DEXAMETHASONE SOD PHOSPHATE 4 MG/ML 1 ML VIAL IV ONE (11:06)
[2022-06-23] MEDS ORDERED: MIDAZOLAM 2 MG/2 ML VIAL IVP ONE (11:21)
[2022-06-23] MEDS ORDERED: fentaNYL (PF) 50 MCG/1 ML VIAL IVP ONE (11:21)
[2022-06-23] MEDS ORDERED: fentaNYL (PF) 50 MCG/ML 2 ML AMP ONE (11:32)
[2022-06-23] MEDS ORDERED: ROPIVACAINE 5 MG/ML 30 ML VIAL ONE (11:32)
[2022-06-23] MEDS ORDERED: MIDAZOLAM 2 MG/2 ML VIAL ONE (11:32)
[2022-06-23] MEDS ORDERED: NEOSTIGMINE 1 MG/ML 10 ML VIAL ONE (11:32)
[2022-06-23] MEDS ORDERED: LIDOCAINE 2% INJ 20 MG/ML (2 ML VIAL) ONE (11:32)
[2022-06-23] MEDS ORDERED: SUCCINYLCHOLINE CHLORIDE 200 MG/10 ML VIAL IV ONE (11:32)
[2022-06-23] MEDS ORDERED: GLYCOPYRROLATE 0.2 MG/ML 2 ML VIAL ONE (11:32)
[2022-06-23] MEDS ORDERED: ROCURONIUM 10 MG/ML (5 ML VIAL) IV ONE (11:32)
[2022-06-23] MEDS ORDERED: PROPOFOL 10 MG/ML 20 ML VIAL IV ONE (11:32)
[2022-06-23] MEDS ORDERED: BUPIVACAINE (PF) 0.5% 30 ML VIAL SQ ONE ×2 (12:11)
--- NOTE | 2022-06-23 12:32 | P.ANPRN ---
Procedure Note - Anesthesia - Nerve Block Performed Bilateral Rectus Abdominis Single Time Out Performed: Yes (1120) Date of Procedure: 06/23/22 Procedure Start Time: : Procedure Stop Time: Location of Patient: PreOp Indication: Acute Post-Operative Pain, Requested by Surgeon Specifically requested for management of pain by DrEvon: Carley Tyson Sedation Type: Sedate with meaningful contact maintained Preparation: Sterile Prep Position: Supine Catheter: None Needle Types: Pajunk Needle Gauge: 21 Ultrasound used to visualize needle placement: Yes Ultrasound used to observe medication spread: Yes Injectate: 0.5% Ropivacaine (see comment for volume) (20cc each side) Blood Aspirated: No Pain Paresthesia on Injection Noted: No Resistance on Injection: Normal Image Stored and Saved: Yes Events: Uneventful and Well Tolerated
[2022-06-23 13:18] VITALS: TEMP 97
[2022-06-23] MEDS ORDERED: HYDROcodone/APAP 7.5-325MG 1 EACH TAB ONE (14:35)
[2022-06-23] MEDS ORDERED: HYDROcodone/APAP 7.5-325MG 1 EACH TAB PO ONE (14:41)
[2022-06-23 15:43] VITALS: BP 129/70; PULSE 62; RESP 16
--- NOTE | 2022-07-13 18:26 | P.OP ---
Date of Procedure: 06/23/22 Description of Procedure: SURGEON: OMEGA FERMIN MD PREOPERATIVE DIAGNOSES: 1. Incarcerated initial umbilical hernia with omentum 2. Body mass index of 56.4 to 41.8 3. Depressive disorder 4. Congestive heart failure 5. Morbid obesity due to excess calories 6. Obstructive sleep apnea, severe 7. Gastroesophageal reflux disease 8. Stomach ulcers 9. Osteoarthritis bilateral knee 10. Osteoarthritis lower back 11. Osteoarthritis right hip pain 12. Atrial fibrillation 13. Hypertensive heart disease 14. Diabetes type 2, non-insulin dependent 15. Asthma 16. Iron deficiency anemia 17. Hyperlipidemia 18. Chronic obstructive pulmonary disease, moderate 19. Depressive disorder 20. Family history morbid obesity 21. History of pacemaker placement 22. Chronic anticoagulant use 23. Hepatomegaly due to fatty liver disease 24. Status post gastric bypass POSTOPERATIVE DIAGNOSES: 1. Incarcerated initial umbilical hernia with omentum, 3-cm 2. Body mass index of 56.4 to 41.8 3. Depressive disorder 4. Congestive heart failure 5. Morbid obesity due to excess calories 6. Obstructive sleep apnea, severe 7. Gastroesophageal reflux disease 8. Stomach ulcers 9. Osteoarthritis bilateral knee 10. Osteoarthritis lower back 11. Osteoarthritis right hip pain 12. Atrial fibrillation 13. Hypertensive heart disease 14. Diabetes type 2, non-insulin dependent 15. Asthma 16. Iron deficiency anemia 17. Hyperlipidemia 18. Chronic obstructive pulmonary disease, moderate 19. Depressive disorder 20. Family history morbid obesity 21. History of pacemaker placement 22. Chronic anticoagulant use 23. Hepatomegaly due to fatty liver disease 24. Status post gastric bypass OPERATION: 1. Robotic-assisted da Jef Xi laparoscopic repair of initial incarcerated umbilical hernia 3-cm with mesh, ventralight ST mesh 11.4 cm Anesthesia: GETA, regional, local Estimated Blood Loss (ml): 5 Pathology: None. COMPLICATIONS: None. Operative Findings: 1. Umbilical hernia defect 2 x 3 cm 2. Fascia repaired using #1 V-lock suture INDICATIONS: The patient is a 61-year-old male who presents with incarcerated abdominal wall hernia. He presents with elevated wrist with morbid obesity including chronic anticoagulation. Surgical intervention with laparoscopic vers us robotic and open techniques were reviewed. Placement of mesh was also reviewed. Benefits and risks were thoroughly described. Informed consent was obtained. DESCRIPTION OF PROCEDURE: The patient was brought into the operating room and laid in supine position. After general induction, the abdomen had been prepped and draped in standard sterile fashion. Ioban draping was also placed. Prior to incision, a timeout protocol was confirmed with surgical team regarding the patient's name including procedures to be performed. The robot was primed prior to the procedure. A field block using local anesthetic was placed along hernia site including the proposed port sites. Initial incision was made with an #11 blade along the left upper quadrant. A 0 degree 5 mm laparoscopic trocar entry was performed and insufflated. Three 8 mm ports were placed along the left lateral abdominal wall under direct localization after exchanging the 5-mm for an 8 mm port. Placements of the ports were 15 cm from the target anatomy and 10 cm apart. An accessory 12 mm port was placed at the left upper quadrant for exchange of mesh including sutures. The [employer] Xi robot was previously primed, prepped and draped then docked from the right side of the patient onto the left side of the patient. I then sat at the robot Theatricsi Xi console where working arms of the robot including Bovie cautery connected to robotic scissors, needle stunt driver, and graspers placed by the habilitation assistant. Incarcerated omental contents were found incarcerated at the umbilicus. Distinct fascial defect found: Umbilical hernia defect 2 x 3 cm. The incarcerated contents were reduced as the peritoneal fat was cleaned from the abdominal wall. Next, hemostasis was checked with cautery. The hernia defects were oversewn using #1 nonabsorbable V-lock suture with fascial imbrication x 2. Next, ventralight ST mesh 11.4 cm was placed with the rough side towards the abdominal wall as to cover the umbilical defect. 2-0 VLOC 9 inch absorbable sutures were used to fixate the mesh. A final endoscopic imaging was obtained. All instruments and pneumoperitoneum were evacuated from the abdominal cavity. The da Jef Xi robot was undocked from the patient. I re-scrubbed into the case for closure of incisions. The fascia of the 12-mm port was probed. Uri Winslow 0 Vicryl was used to oversew the defect. The incisions were reapproximated using 4-0 Monocryl in an interrupted subcuticular fashion. Liquid glue was applied to the skin after cleansing the skin with normal saline and dilute hydrogen peroxide. An abdominal binder was placed. An umbilical dressing was placed prior. At the end of the procedure, needle, sponge, and instrument count had been verified correct by surgical specialist. The patient was taken to the postanesthesia care unit in stable condition. Plan - Discharge Summary Discharge Rx Participant: Yes New Discharge Prescriptions: New Cyclobenzaprine [Flexeril] 10 mg PO TID #30 tab Acetaminophen Tab [Tylenol Tab] 1,000 mg PO Q6HR PRN #30 tablet PRN Reason: Pain Continue Montelukast [Singulair] 10 mg PO HS Sotalol [Betapace] 120 mg PO BID Gabapentin [Neurontin] 300 mg PO TID Apixaban [Eliquis] 5 mg PO BID Omeprazole 20 mg PO BID Calcium Carbonate/Vitamin D3 [Calcium 600 mg-D3 10 Mcg (400 Iu)] 1 each PO BID DULoxetine HCL [Cymbalta] 60 mg PO QAM Tamsulosin HCl [Flomax] 0.8 mg PO HS Baclofen 10 mg PO TID Rosuvastatin [Crestor] 20 mg PO HS Semaglutide [Ozempic] 0.5 mg SQ TH Multivitamins, Thera [Multivitamin (formulary)] 1 tab PO BID Discharge Medication List Montelukast [Singulair] 10 mg PO HS 07/12/18 [History] Sotalol [Betapace] 120 mg PO BID 07/12/18 [History] Gabapentin [Neurontin] 300 mg PO TID 11/17/18 [History] Apixaban [Eliquis] 5 mg PO BID 11/29/18 [History] Baclofen 10 mg PO TID 04/30/22 [History] DULoxetine HCL [Cymbalta] 60 mg PO QAM 04/30/22 [History] Tamsulosin HCl [Flomax] 0.8 mg PO HS 04/30/22 [History] Calcium Carbonate/Vitamin D3 [Calcium 600 mg-D3 10 Mcg (400 Iu)] 1 each PO BID 06/19/22 [History] Multivitamins, Thera [Multivitamin (formulary)] 1 tab PO BID 06/19/22 [History] Omeprazole 20 mg PO BID 06/19/22 [History] Rosuvastatin [Crestor] 20 mg PO HS 06/19/22 [History] Semaglutide [Ozempic] 0.5 mg SQ TH 06/19/22 [History] Acetaminophen Tab [Tylenol Tab] 1,000 mg PO Q6HR PRN #30 tablet 06/23/22 [Rx] Cyclobenzaprine [Flexeril] 10 mg PO TID #30 tab 06/23/22 [Rx] Follow up Appointment(s)/Referral(s): Bariatric [place], [place] [NON-STAFF] - 06/27/22 9:00 am Patient Instructions/Handouts: *[facility] - Managing Your Pain After Surgery Without Opioids, *[facility] - (Anesthesia) Discharge Instructions Outpatient Surgery, Abdominal Binder (DC), Ventral Hernia Repair (DC) Activity/Diet/Wound Care/Special Instructions: DO NOT REMOVE UMBILICAL DRESSING. Using antibacterial soap. No lifting over 4 pounds 4 weeks, July 24June shower. No bathtub soaks for 2 weeks, July 07 Wear abdominal binder daily for comfort except for showering. Use ice along incisions for today to prevent swelling. Take tylenol, flexeril, simethicone scheduled for 3 days for best pain relief Discharge Disposition: HOME SELF-CARE
== END 2022-06-23 17:00 | disposition home or self-care (01) ==
LOC: OR 09:47
PROVIDERS: ATTEND Surgery Plastic and Reconstructive Surgery
DX: K42.0 Umbilical hernia with obstruction, without gangrene (principal); G89.18 Other acute postprocedural pain; G47.33 Obstructive sleep apnea (adult) (pediatric); E66.01 Morbid (severe) obesity due to excess calories; M17.0 Bilateral primary osteoarthritis of knee; M16.11 Unilateral primary osteoarthritis, right hip; I48.91 Unspecified atrial fibrillation; D50.9 Iron deficiency anemia, unspecified; J44.9 Chronic obstructive pulmonary disease, unspecified; E11.9 Type 2 diabetes mellitus without complications; K21.9 Gastro-esophageal reflux disease without esophagitis; I11.0 Hypertensive heart disease with heart failure; I50.9 Heart failure, unspecified; K25.9 Gastric ulcer, unspecified as acute or chronic, without hemorrhage or perforation; K76.0 Fatty (change of) liver, not elsewhere classified; E78.5 Hyperlipidemia, unspecified; M19.90 Unspecified osteoarthritis, unspecified site; Z82.49 Family history of ischemic heart disease and other diseases of the circulatory system; Z98.84 Bariatric surgery status; F12.90 Cannabis use, unspecified, uncomplicated; F32.A Depression, unspecified; Z87.891 Personal history of nicotine dependence; Z80.3 Family history of malignant neoplasm of breast; Z79.01 Long term (current) use of anticoagulants; Z95.0 Presence of cardiac pacemaker; Z79.84 Long term (current) use of oral hypoglycemic drugs; Z95.1 Presence of aortocoronary bypass graft; Z79.899 Other long term (current) drug therapy
CPT/HCPCS: 64488; 49594; C1781; J2250; J0330; J1100; J2710; J0690; J2405; J3010 ×2; J2795; J2704; J2001

== ENCOUNTER → 2022-07-02 | Outpatient (CLI) | payer MEDICARE, OTHER ==
[2022-07-02 14:18] VITALS: BP 135/87; PULSE 64; TEMP 97.5; BMI 43.0
--- NOTE | 2022-07-02 14:51 | P.BASOAP ---
Subjective Progress Note Date: 07/02/22 Has redundant skin tissue. 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 Has fluid in umbilicus. Needs drainage. Objective - Vital Signs Vital signs: Vital Signs Temp 97.5 F L 07/02/22 14:14 Pulse 64 07/02/22 14:14 Resp BP 135/87 07/02/22 14:14 Pulse Ox FiO2 Intake & Output 07/01/22 07/02/22 07/02/22 18:59 06:59 18:59 Weight 134.037 kg Assessment/Plan Plan: Date: 07/02/22 Initial Weight: 175.625 kg Initial BMI: 56.3 Current Weight: 134.037 kg Current BMI: 43.0 Type of Surgery: Total Volume in Band: Previous Volume: Volume Removed: Volume Added: Band Size:
== END ==
LOC: BARWHC3 13:36
PROVIDERS: ATTEND Surgery Plastic and Reconstructive Surgery
DX: E66.01 Morbid (severe) obesity due to excess calories (principal); Z68.41 Body mass index [BMI] 40.0-44.9, adult; Z88.8 Allergy status to other drugs, medicaments and biological substances; Z87.891 Personal history of nicotine dependence
CPT/HCPCS: 99211

== ENCOUNTER 2023-07-09 19:47 | Emergency (ER) | payer MEDICARE, OTHER ==
[2023-07-09 20:18] VITALS: RESP 18
[2023-07-09 20:30] LABS: Basophils % (A) 0 %; Eosinophils # (A) 0.1 k/uL (0-0.7); Eosinophils % (A) 1 %; HCT 45.6 % (39.0-53.0); HGB 14.8 gm/dL (13.0-17.5); Lymphocytes % (A) 22 %; MCH 30.9 pg (25.0-35.0); MCHC 32.5 g/dL (31.0-37.0); MCV 95.2 fL (80.0-100.0); Mean Platelet Volume 7.9; Monocytes # (A) 0.6 k/uL (0-1.0); Monocytes % (A) 4 %; Neutrophils # (A) 9.8 k/uL (1.3-7.7); Neutrophils % (A) 72 %; Platelet Count 100 k/uL (150-450); RBC 4.79 m/uL (4.30-5.90); WBC 13.7 k/uL (3.8-10.6)
[2023-07-09 20:40] LABS: Partial Thromboplastin Time 23.1 sec (22.0-30.0); Potassium 4.1 mmol/L (3.5-5.1); Prothrombin Time 11.2 sec (10.0-12.5)
[2023-07-09 20:41] LABS: ALT 27 U/L (4-49); AST 31 U/L (17-59); African American GFR (CKD) >90 (>60 ml/min/1.73 sqM); Albumin 4.2 g/dL (3.5-5.0); Alkaline Phosphatase 69 U/L (38-126); Amphetamine Screen,Urine Not Detected (NotDetected); Anion Gap 8 mmol/L; Barbiturate Screen,Urine Not Detected (NotDetected); Benzodiazepines Screen,Urine Not Detected (NotDetected); Blood Urea Nitrogen 12 mg/dL (9-20); Calcium 9.5 mg/dL (8.4-10.2); Carbon Dioxide 24 mmol/L (22-30); Chloride 108 mmol/L (98-107); Cocaine Screen,Urine Not Detected (NotDetected); Glucose 113 mg/dL (74-99); Methadone Screen, Urine Not Detected (NotDetected); Non-African American GFR(CKD) >90 (>60 ml/min/1.73 sqM); Opiate Screen,Urine Not Detected (NotDetected); Oxycodone Screen, Urine Not Detected (NotDetected); Phencyclidine Screen,Urine Not Detected (NotDetected); Sodium 140 mmol/L (137-145); Total Bilirubin 1.7 mg/dL (0.2-1.3); Total Protein 6.3 g/dL (6.3-8.2); Tricyclic Antidepressant,Urine Not Detected (NotDetected); Urn Cannabinoid Scrn Detected (NotDetected)
[2023-07-09 20:53] LABS: Alcohol 168 mg/dL
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
--- NOTE | 2023-07-09 21:38 | XR ---
PROCEDURE: XR pelvis AP view - 3V DATE AND TIME: 07/09/2023 8:28 PM CLINICAL INDICATION: [facility]; Trauma TECHNIQUE: Department protocol COMPARISON: None FINDINGS / IMPRESSION: Underpenetrated technique limits assessment. No acute fracture/malalignment. No focal osseous lesions.
--- NOTE | 2023-07-09 21:39 | XR ---
EXAMINATION: XR chest 1V portable DATE AND TIME: 07/09/2023 8:28 PM CLINICAL INDICATION: [facility]; trauma TECHNIQUE: Departmental protocol COMPARISON: 11/10/2018 FINDINGS: Dual lead cardiac pacemaker noted. The lungs are clear. The pleural spaces are negative. The cardiac silhouette is not enlarged. Remainder of the mediastinal silhouette is unremarkable. The skeletal structures and soft tissues are negative for acute findings. IMPRESSION: No acute radiographic process.
[2023-07-09] MEDS: MORPHINE SULFATE 4 MG/ML SYRINGE IVP STA ×2 (21:40→23:45)
--- NOTE | 2023-07-09 21:41 | XR ---
PROCEDURE: XR shoulder complete LT - 3V DATE AND TIME: 07/09/2023 8:44 PM CLINICAL INDICATION: [facility]; pain after fall TECHNIQUE: Department protocol COMPARISON: None FINDINGS / IMPRESSION: No acute soft tissue findings. No acute fracture/malalignment. No focal osseous lesions. Moderate osteoarthrosis changes seen at the acromioclavicular joint.
--- NOTE | 2023-07-09 21:44 | XR ---
PROCEDURE: XR ankle complete LT - 3V DATE AND TIME: 07/09/2023 8:44 PM CLINICAL INDICATION: [facility]; PAIN AFTER FALL TECHNIQUE: Department protocol COMPARISON: None FINDINGS / IMPRESSION: There is lateral soft tissue swelling and a nondisplaced distal fibular fracture. The mortise is inta ct. There are no other fractures. On the lateral view there are scattered subcentimeter gas densities in appearance of soft tissue emph ysema; physical examination correlation is requested. There are prominent atherosclerotic arterial calcifications.
--- NOTE | 2023-07-09 21:46 | XR ---
PROCEDURE: XR foot complete LT - 3V DATE AND TIME: 07/09/2023 8:38 PM CLINICAL INDICATION: [facility]; trauma TECHNIQUE: Department protocol COMPARISON: None FINDINGS / IMPRESSION: A distal fibular fracture is seen. There are mild and moderate scattered osteophytosis changes compre ss most advanced at the first MTP articulation. There is a subcentimeter gas density in the soft tissues projecting anterior to the distal tibial sha ft on the lateral view. Atherosclerotic arterial calcifications are noted.
[2023-07-09 23:20] VITALS: TEMP 98
[2023-07-09] MEDS: ACET/COD 300 MG/30 MG STARTER PACK 6 TAB BTL PO STA (23:45)
--- NOTE | 2023-07-09 23:50 | ED ---
Medical Decision Making - Medical Decision Making I was asked to enter discharge instructions for this patient, no other intervention - Lab Data Result diagrams: 07/09/23 20:09 07/09/23 20:09 Lab Results 07/09/23 07/09/23 07/09/23 Range/Units 19:55 20:09 20:09 WBC 13.7 H (3.8-10.6) k/uL RBC 4.79 (4.30-5.90) m/uL Hgb 14.8 (13.0-17.5) gm/dL Hct 45.6 (39.0-53.0) % MCV 95.2 (80.0-100.0) fL MCH 30.9 (25.0-35.0) pg MCHC 32.5 (31.0-37.0) g/dL RDW 15.0 (11.5-15.5) % Plt Count 100 L (150-450) k/uL MPV 7.9 Neutrophils % 72 % Lymphocytes % 22 % Monocytes % 4 % Eosinophils % 1 % Basophils % 0 % Neutrophils # 9.8 H (1.3-7.7) k/uL Lymphocytes # 3.0 (1.0-4.8) k/uL Monocytes # 0.6 (0-1.0) k/uL Eosinophils # 0.1 (0-0.7) k/uL Basophils # 0.0 (0-0.2) k/uL PT 11.2 (10.0-12.5) sec INR 1.0 (<1.2) APTT 23.1 (22.0-30.0) sec Sodium (137-145) mmol/L Potassium (3.5-5.1) mmol/L Chloride (98-107) mmol/L Carbon Dioxide (22-30) mmol/L Anion Gap mmol/L BUN (9-20) mg/dL Creatinine (0.66-1.25) mg/dL Est GFR (CKD-EPI)AfAm (>60 ml/min/1.73 sqM) Est GFR (CKD-EPI)NonAf (>60 ml/min/1.73 sqM) Glucose (74-99) mg/dL Calcium (8.4-10.2) mg/dL Total Bilirubin (0.2-1.3) mg/dL AST (17-59) U/L ALT (4-49) U/L Alkaline Phosphatase (38-126) U/L Troponin I (0.000-0.034) ng/mL Total Protein (6.3-8.2) g/dL Albumin (3.5-5.0) g/dL Urine Opiates Screen (NotDetected) Ur Oxycodone Screen (NotDetected) Urine Methadone Screen (NotDetected) Ur Barbiturates Screen (NotDetected) U Tricyclic Antidepress (NotDetected) Ur Phencyclidine Scrn (NotDetected) Ur Amphetamines Screen (NotDetected) U Methamphetamines Scrn (NotDetected) U Benzodiazepines Scrn (NotDetected) Urine Cocaine Screen (NotDetected) U Marijuana (THC) Screen (NotDetected) Serum Alcohol mg/dL Blood Type A Positive Blood Type Recheck A Pos Bld Type Recheck Status No Antibody Screen NEGATIVE Spec Expiration Date 07/12/2023230507/09/23 07/09/23 07/09/23 Range/Units 20:09 20:09 20:09 WBC (3.8-10.6) k/uL RBC (4.30-5.90) m/uL Hgb (13.0-17.5) gm/dL Hct (39.0-53.0) % MCV (80.0-100.0) fL MCH (25.0-35.0) pg MCHC (31.0-37.0) g/dL RDW (11.5-15.5) % Plt Count (150-450) k/uL MPV Neutrophils % % Lymphocytes % % Monocytes % % Eosinophils % % Basophils % % Neutrophils # (1.3-7.7) k/uL Lymphocytes # (1.0-4.8) k/uL Monocytes # (0-1.0) k/uL Eosinophils # (0-0.7) k/uL Basophils # (0-0.2) k/uL PT (10.0-12.5) sec INR (<1.2) APTT (22.0-30.0) sec Sodium 140 (137-145) mmol/L Potassium 4.1 (3.5-5.1) mmol/L Chloride 108 H (98-107) mmol/L Carbon Dioxide 24 (22-30) mmol/L Anion Gap 8 mmol/L BUN 12 (9-20) mg/dL Creatinine 0.83 (0.66-1.25) mg/dL Est GFR (CKD-EPI)AfAm >90 (>60 ml/min/1.73 sqM) Est GFR (CKD-EPI)NonAf >90 (>60 ml/min/1.73 sqM) Glucose 113 H (74-99) mg/dL Calcium 9.5 (8.4-10.2) mg/dL Total Bilirubin 1.7 H (0.2-1.3) mg/dL AST 31 (17-59) U/L ALT 27 (4-49) U/L Alkaline Phosphatase 69 (38-126) U/L Troponin I <0.012 (0.000-0.034) ng/mL Total Protein 6.3 (6.3-8.2) g/dL Albumin 4.2 (3.5-5.0) g/dL Urine Opiates Screen Not Detected (NotDetected) Ur Oxycodone Screen Not Detected (NotDetected) Urine Methadone Screen Not Detected (NotDetected) Ur Barbiturates Screen Not Detected (NotDetected) U Tricyclic Antidepress Not Detected (NotDetected) Ur Phencyclidine Scrn Not Detected (NotDetected) Ur Amphetamines Screen Not Detected (NotDetected) U Methamphetamines Scrn Not Detected (NotDetected) U Benzodiazepines Scrn Not Detected (NotDetected) Urine Cocaine Screen Not Detected (NotDetected) U Marijuana (THC) Screen Detected H (NotDetected) Serum Alcohol 168 mg/dL Blood Type Blood Type Recheck Bld Type Recheck Status Antibody Screen Spec Expiration Date Disposition Clinical Impression: Fracture of distal fibula, Alcohol intoxication Disposition: HOME SELF-CARE Condition: Stable Instructions (If sedation given, give patient instructions): Leg Fracture (ED) Is patient prescribed a controlled substance at d/c from ED?: No Referrals: Mihaela Sanchez DO [Primary Care Provider] - 1-2 days
[2023-07-10 00:08] VITALS: BP 111/71; PULSE 86
== END 2023-07-10 00:30 | disposition home or self-care (01) ==
LOC: EC 19:47
DX: S82.402A Unspecified fracture of shaft of left fibula, initial encounter for closed fracture (principal); F10.129 Alcohol abuse with intoxication, unspecified; F17.290 Nicotine dependence, other tobacco product, uncomplicated; F12.90 Cannabis use, unspecified, uncomplicated; Z88.8 Allergy status to other drugs, medicaments and biological substances; X50.0XXA Overexertion from strenuous movement or load, initial encounter; Y90.6 Blood alcohol level of 120-199 mg/100 ml
CPT/HCPCS: 36415; 93005; 86900; 86901; 80053; 84484; 85025; 85610; 85730; 86850; 80306; 80320; 72170; 73030; 73610; 73630; 71045; 72125; 70450; 99284; 96374; 96376; J2270

== ENCOUNTER → 2023-09-02 | Outpatient (CLI) | payer MEDICARE, OTHER ==
[2023-09-02 18:39] LABS: Basophils # (A) 0.04 X 10*3/uL (0.00-0.10); Basophils % (A) 0.4 %; Eosinophils # (A) 0.13 X 10*3/uL (0.04-0.35); Eosinophils % (A) 1.3 %; HCT 46.1 % (39.6-50.0); HGB 15.1 g/dL (13.0-17.0); Lymphocytes # (A) 2.97 X 10*3/uL (0.90-5.00); MCH 31.5 pg (27.0-32.0); MCHC 32.8 g/dL (32.0-37.0); MCV 96.2 FL (80.0-97.0); Monocytes # (A) 0.54 X 10*3/uL (0.20-1.00); Monocytes % (A) 5.4 %; NRBC Per 100 WBC 0 X 10*3/uL (0.00-0.01); Neutrophils # (A) 6.21 X 10*3/uL (1.80-7.70); Neutrophils % (A) 62.7 %; Platelet Count 120 X 10*3/uL (140-440); RBC 4.79 X 10*6/uL (4.40-5.60); RDW 13.6 % (11.5-14.5); WBC 9.91 X 10*3/uL (4.50-10.00)
[2023-09-02 18:53] LABS: Erythrocyte Sedimentation Rate 8 mm/Hr (0-20)
== END | disposition home or self-care (01) ==
LOC: LABWHC1 14:18
PROVIDERS: ATTEND Orthopaedic Surgery
DX: M75.41 Impingement syndrome of right shoulder (principal); M62.81 Muscle weakness (generalized); M19.012 Primary osteoarthritis, left shoulder; S40.012D Contusion of left shoulder, subsequent encounter; E78.5 Hyperlipidemia, unspecified; E11.9 Type 2 diabetes mellitus without complications; M75.42 Impingement syndrome of left shoulder; X58.XXXD Exposure to other specified factors, subsequent encounter
CPT/HCPCS: 36415; 85025; 85652; 86140